=== PATIENT | male | born 1960 | race Caucasian/White ===

== ENCOUNTER 2016-04-29 11:08 | Emergency (ER) | payer MEDICAID ==
[2016-04-29] MEDS ORDERED: Sodium Chloride 0.9% 10 ML Syringe FLUSH PRN (11:50)
[2016-04-29] MEDS ORDERED: Sodium Chloride 0.9% 1,000 ML IV SCH (12:00)
[2016-04-29 12:07] VITALS: BP 137/85
[2016-04-29] MEDS ORDERED: HYDROmorphone 1 MG/ML Syringe IVPUSH ONE (12:40)
--- NOTE | 2016-04-29 13:34 | EDM.PDOC ---
ED HPI Trauma - General Chief Complaint: Lower Extremity Injury/Pain Stated Complaint: PAIN IN BOTH LEGS Time Seen by Provider: 04/29/16 11:43 Source: Reports: Patient History Limitations: Reports: No limitations - History of Present Illness INITIAL COMMENTS - FREE TEXT/NARRATIVE: The patient presents with bilateral leg pain and low back pain. He also says he has some weakness in his legs. 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 He denies fever, chills, cough, congestion, runny nose , chest pain, shortness of breath, abdominal pain, nausea or vomiting. Occurred When: just prior to arrival Occurred Where: home Method of Injury: other (He was trying to get out of bed) Severity: moderate Pain/Injury Location: Reports: lower extremity, right, lower extremity, left Consciousness: Reports: no loss of consciousness Allergies/ADRs: Allergies No Known Allergies Allergy (Verified 04/29/16 11:40) Home Medications: Ambulatory Orders Atenolol 25 mg PO DAILY 04/29/16 [Confirmed 04/29/16] ClonazePAM [KlonoPIN] 2 mg PO TID 04/29/16 [Confirmed 04/29/16] Difonlec 75 mg PO BID 04/29/16 [Confirmed 04/29/16] Gabepentin 300 mg PO TID 04/29/16 [Confirmed 04/29/16] Methylphenidate [Ritalin] 20 mg PO TID 04/29/16 [Confirmed 04/29/16] Sertraline [Zoloft] 120 mg PO DAILY 04/29/16 [Confirmed 04/29/16] buPROPion [Wellbutrin XL] 300 mg PO DAILY 04/29/16 [Confirmed 04/29/16] oxyCODONE HCl/Acetaminophen [Percocet 5-325 mg Tablet] 1 - 2 each PO Q6HR PRN # 20 tablet 04/29/16 Past Medical History HEENT History: Reports: Impaired vision Cardiovascular History: Reports: High cholesterol, Hypertension Respiratory History: Reports: Bronchitis, recurrent Gastrointestinal History: Reports: Gastritis Musculoskeletal History: Reports: Back pain, chronic, Osteoarthritis Psychiatric History: Reports: Anxiety, Depression, Emotional problems, Mood swings, PTSD Social & Family History - Tobacco Use Smoking Status *Q: Current Every Day Smoker Years of Tobacco use: 21 Packs/Tins Daily: 1 - Caffeine Use Caffeine Use: Reports: Coffee, Energy drinks, Soda, Tea - Recreational Drug Use Drug Use in Last 12 Months: Yes Recreational Drug Type: Reports: Marijuana/Hashish, Methamphetamine Review of Systems - Review of Systems Review Of Systems: See Below Constitutional: Reports: no symptoms Eyes: Reports: no symptoms Ears: Reports: no symptoms Nose: Reports: no symptoms Mouth/Throat: Reports: no symptoms Respiratory: Reports: No Symptoms Cardiovascular: Reports: no symptoms GI/Abdominal: Reports: No symptoms Genitourinary: Reports: no symptoms Musculoskeletal: Reports: other (Bilateral leg pain and weakness) Trauma Exam - Physical Exam Exam: See Below Exam Limited By: No limitations General Appearance: Reports: alert, no apparent distress Head: Reports: atraumatic, normocephalic Ears: Reports: normal external exam Nose: Reports: normal inspection Neck: Reports: non-tender, normal alignment, normal inspection Respiratory Exam: Reports: no respiratory distress, lungs clear, normal breath sounds Cardiovascular: Reports: normal peripheral pulses, regular rate, rhythm, no edema GI/Abdominal: Reports: soft, non tender, no organomegaly Back: Reports: other (Mild pain upon palpation to the lumbar spine) Extremities: Reports: no evidence of injury, other (Tenderness to the bilateral thighs. Good sensation and pulses distally.) Neurologic: Reports: no motor/sensory deficits, alert, normal mood/affect, oriented x 3 Course - Vital Signs Last Recorded V/S: Last Vital Signs Temp 97.2 F 04/29/16 12:06 Pulse 76 04/29/16 12:06 Resp 20 04/29/16 12:06 BP 137/85 04/29/16 12:06 Pulse Ox 88 L 04/29/16 12:06 - Orders/Labs/Meds Orders: Active Orders 24 hr Category Date Time Status Peripheral IV Care [RC] . DIRECTED Care 04/29/16 11:51 Active Lumbar Spine 2 or 3V [CR] Stat Exams 04/29/16 11:52 Taken AYAZ W/RFX TESTING [REF] Stat Lab 04/29/16 12:00 Received Sodium Chloride 0.9% [Normal Saline] 1,000 ml Med 04/29/16 12:00 Active IV ASDIRECTED Sodium Chloride 0.9% [Saline Flush] Med 04/29/16 11:50 Active 10 ml FLUSH ASDIRECTED PRN Peripheral IV Insertion Adult [OM.PC] Stat Oth 04/29/16 11:50 Ordered Medication Orders Sodium Chloride (Normal Saline) 1,000 mls @ 125 mls/hr IV ASDIRECTED LEONARDA Last Admin: 04/29/16 12:36 Dose: 125 mls/hr Sodium Chloride (Saline Flush) 10 ml FLUSH ASDIRECTED PRN PRN Reason: Keep Vein Open Last Admin: 04/29/16 12:36 Dose: 10 ml Labs: Laboratory Tests 04/29/16 04/29/16 04/29/16 Range/Units 12:00 12:00 12:00 WBC 10.82 H (4.23-9.07) K/mm3 RBC 4.21 L (4.63-6.08) M/mm3 Hgb 14.4 (13.7-17.5) gm/L Hct 41.7 (40.1-51.0) % MCV 99.0 H (79.0-92.2) fl MCH 34.2 H (25.7-32.2) pg MCHC 34.5 (32.2-35.5) g/dl RDW Std Deviation 44.7 H (35.1-43.9) fL Plt Count 242 (163-337) K/mm3 MPV 9.1 L (9.4-12.3) fl Neut % (Auto) 63.3 (34.0-67.9) % Lymph % (Auto) 20.7 L (21.8-53.1) % Cooke % (Auto) 12.0 (5.3-12.2) % Eos % (Auto) 2.4 (0.8-7.0) Baso % (Auto) 0.4 (0.1-1.2) % Neut # 6.85 H (1.78-5.38) K/mm3 Lymph # 2.24 (1.32-3.57) K/mm3 Cooke # 1.30 H (0.30-0.82) K/mm3 Eos # 0.26 (0.04-0.54) K/mm3 Baso # 0.04 (0.01-0.08) K/mm3 Manual Slide Review Normal smear ESR 20 H (0-15) mm/hr Sodium 134 L (136-145) mEq/L Potassium 4.4 (3.5-5.1) mEq/L Chloride 100 (98-107) mEq/L Carbon Dioxide 22 (21-32) mEq/L Anion Gap 16.4 H (5-15) BUN 21 H (7-18) mg/dL Creatinine 1.1 (0.7-1.3) mg/dL Est Cr Clr Drug Dosing 81.77 mL/min Estimated GFR (MDRD) > 60 (>60) mL/min BUN/Creatinine Ratio 19.1 H (14-18) Glucose 112 H (74-106) mg/dL Calcium 8.4 L (8.5-10.1) mg/dL Total Bilirubin 0.6 (0.2-1.0) mg/dL AST 31 (15-37) U/L ALT 38 (16-63) U/L Alkaline Phosphatase 74 (46-116) U/L C-Reactive Protein < 0.2 (<1.0) mg/dL Total Protein 7.3 (6.4-8.2) g/dl Albumin 3.7 (3.4-5.0) g/dl Globulin 3.6 gm/dL Albumin/Globulin Ratio 1.0 (1-2) Rheumatoid Factor Scrn (NEGATIVE) 04/29/16 Range/Units 12:00 WBC (4.23-9.07) K/mm3 RBC (4.63-6.08) M/mm3 Hgb (13.7-17.5) gm/L Hct (40.1-51.0) % MCV (79.0-92.2) fl MCH (25.7-32.2) pg MCHC (32.2-35.5) g/dl RDW Std Deviation (35.1-43.9) fL Plt Count (163-337) K/mm3 MPV (9.4-12.3) fl Neut % (Auto) (34.0-67.9) % Lymph % (Auto) (21.8-53.1) % Cooke % (Auto) (5.3-12.2) % Eos % (Auto) (0.8-7.0) Baso % (Auto) (0.1-1.2) % Neut # (1.78-5.38) K/mm3 Lymph # (1.32-3.57) K/mm3 Cooke # (0.30-0.82) K/mm3 Eos # (0.04-0.54) K/mm3 Baso # (0.01-0.08) K/mm3 Manual Slide Review ESR (0-15) mm/hr Sodium (136-145) mEq/L Potassium (3.5-5.1) mEq/L Chloride (98-107) mEq/L Carbon Dioxide (21-32) mEq/L Anion Gap (5-15) BUN (7-18) mg/dL Creatinine (0.7-1.3) mg/dL Est Cr Clr Drug Dosing mL/min Estimated GFR (MDRD) (>60) mL/min BUN/Creatinine Ratio (14-18) Glucose (74-106) mg/dL Calcium (8.5-10.1) mg/dL Total Bilirubin (0.2-1.0) mg/dL AST (15-37) U/L ALT (16-63) U/L Alkaline Phosphatase (46-116) U/L C-Reactive Protein (<1.0) mg/dL Total Protein (6.4-8.2) g/dl Albumin (3.4-5.0) g/dl Globulin gm/dL Albumin/Globulin Ratio (1-2) Rheumatoid Factor Scrn Negative (NEGATIVE) Meds: Medications Generic Name Dose Route Start Last Admin Trade Name Freq PRN Reason Stop Dose Admin Sodium Chloride 1,000 mls @ 125 mls/hr 04/29/16 12:00 04/29/16 12:36 Normal Saline IV 125 mls/hr ASDIRECTED LEONARDA Administration Sodium Chloride 10 ml 04/29/16 11:50 04/29/16 12:36 Saline Flush FLUSH 10 ml ASDIRECTED PRN Administration Keep Vein Open Discontinued Medications Generic Name Dose Route Start Last Admin Trade Name Freq PRN Reason Stop Dose Admin Hydromorphone HCl 1 mg 04/29/16 12:40 04/29/16 13:25 Dilaudid IVPUSH 04/29/16 12:41 1 mg ONETIME ONE Administration - Re-Assessments/Exams Free Text/Narrative Re-Assessment/Exam: 04/29/16 14:38 I ordered an IV NS at 125mL/hr, lumbar spine x-ray and labs. 04/29/16 14:40 His x-ray shows some degenerative changes. His WBC was slightly elevated at 10.82. His Na was low at 134. His anion gap was elevated at 16.4. His CRP is negative. His rheumatoid factor is negative. His sed rate is slightly elevated at 20. He feels better after the dilaudid. He has an appointment with a neurologist on the 25 of May. I will give him something for pain. Departure - Departure Time of Disposition: 14:45 Disposition: Home, Self-Care 01 Condition: good Clinical Impression: Bilateral leg pain Prescriptions: oxyCODONE HCl/Acetaminophen [Percocet 5-325 mg Tablet] 1 - 2 each PO Q6HR PRN # 20 tablet PRN Reason: Pain Referrals: Denita Dykes DO [Primary Care Provider] - 1 Week Forms: ED Department Discharge Additional Instructions: Take the percocet as needed for pain. [facility] Please return if you are worse. - My Orders Last 24 Hours: My Active Orders 04/29/16 11:50 Sodium Chloride 0.9% [Saline Flush] 10 ml FLUSH ASDIRECTED PRN Peripheral IV Insertion Adult [OM.PC] Stat 04/29/16 11:51 Peripheral IV Care [RC] . DIRECTED 04/29/16 11:52 Lumbar Spine 2 or 3V [CR] Stat 04/29/16 12:00 AYAZ W/RFX TESTING [REF] Stat Sodium Chloride 0.9% [Normal Saline] 1,000 ml IV ASDIRECTED - Assessment/Plan Last 24 Hours: My Active Orders 04/29/16 11:50 Sodium Chloride 0.9% [Saline Flush] 10 ml FLUSH ASDIRECTED PRN Peripheral IV Insertion Adult [OM.PC] Stat 04/29/16 11:51 Peripheral IV Care [RC] . DIRECTED 04/29/16 11:52 Lumbar Spine 2 or 3V [CR] Stat 04/29/16 12:00 AYAZ W/RFX TESTING [REF] Stat Sodium Chloride 0.9% [Normal Saline] 1,000 ml IV ASDIRECTED
--- NOTE | 2016-04-30 08:02 | CR ---
Lumbar spine: AP, lateral and coned down lateral views centered to the lumbosacral junction were obtained. Comparison: No previous lumbar spine imaging. Mild posterior disc space narrowing noted at T12-L1 and L1-L2 as well as L2-L3. Minimal spondylolisthesis at L4-L5 compatible with degenerative apophyseal change is seen. Scattered endplate osteophytes are seen. Mild scoliosis is noted. Pedicles as well as transverse and spinous processes are intact. Impression: 1. Mild degenerative change as noted above. Diagnostic code #2
== END 2016-04-29 15:01 | disposition home or self-care (01) ==
LOC: JD.ED 11:08
DX: M79.604 Pain in right leg (principal); M79.605 Pain in left leg; E78.00 Pure hypercholesterolemia, unspecified; I10 Essential (primary) hypertension; M19.90 Unspecified osteoarthritis, unspecified site; F41.9 Anxiety disorder, unspecified; F32.9 Major depressive disorder, single episode, unspecified; F17.210 Nicotine dependence, cigarettes, uncomplicated
CPT/HCPCS: 36415; 72100; 80053; 85025; 85652; 86038; 86140; 86430; 96361; 96374; 99284; J1170; J7040; J7050

== ENCOUNTER 2019-09-18 11:28 | Emergency (ER) | payer MEDICAID, OTHER ==
[2019-09-18 11:46] VITALS: BP 100/87; PULSE 98
[2019-09-18] MEDS ORDERED: Sodium Chloride 0.9% 10 ML Syringe FLUSH PRN (12:03)
--- NOTE | 2019-09-18 12:12 | EDM.PDOC ---
ED HPI GENERAL MEDICAL PROBLEM - General Chief Complaint: Cardiovascular Problem Stated Complaint: SWOLLEN ARMS AND LEGS Time Seen by Provider: 09/18/19 11:49 Source of Information: Reports: Patient, RN Notes Reviewed History Limitations: Reports: No Limitations - History of Present Illness INITIAL COMMENTS - FREE TEXT/NARRATIVE: Patient is a 59-year-old male who presents to the ED for the evaluation of his bilateral swollen arms and legs. Patient states that he is a daily drinker, he drinks roughly 12-18 beers daily, and 1/5 of fireball daily. Patient notes his last drink was 5 minutes before he got to the ER. He has become increasingly concerned with his peripheral arm and leg swelling, notes that is been pretty bad for the last month. He is also appreciating some increased shortness of breath, but he does have COPD. He states that he feels bloated in his stool, but he denies any sort of abdomen pain, fever/chills, nausea/vomiting/diarrhea or any other sick-like symptoms. Patient notes that he has been drinking alcohol for 40+ years, and has been through multiple treatment programs, and he has had periods of sobriety that have lasted 4-1/2 years at times. He is a , and does seek [facility] care through [facility] [place], his care physician would be Carmel Villanueva, and sees a Dr. Colon through my not for his mental health. Patient notes that he is also a [id number] cigarette smoker, he smokes marijuana occasionally and sporadically, and states that he also snorts meth from time to time and equates his use to about 1-2 times per month. - Related Data Allergies Allergy/AdvReac Type Severity Reaction Status Date / Time lisinopril Allergy Severe Chest Verified 09/18/19 11:47 Presssure Home Meds: Home Meds DULoxetine [Cymbalta] 120 mg PO DAILY 09/05/18 [History] Dextroamphetamine/Amphetamine [Adderall] 30 mg PO TID 09/05/18 [History] Gabapentin [Neurontin] 300 mg PO TID 09/05/18 [History] Naltrexone 50 mg PO DAILY 09/05/18 [History] Folic Acid 1 mg PO DAILY 30 Days #30 tablet 09/06/18 [Rx] Thiamine [Vitamin B-1] 100 mg PO BEDTIME 30 Days #30 tablet 09/06/18 [Rx] amLODIPine [Norvasc] 5 mg PO DAILY 30 Days #30 tablet 09/06/18 [Rx] atenoloL [Tenormin] 25 mg PO DAILY tablet 09/06/18 [Rx] buPROPion [Wellbutrin SR] 100 mg PO 0600,1200,1700 tab.sr 09/06/18 [Rx] Furosemide [Lasix] 20 mg PO DAILY PRN #14 tab 09/18/19 [Rx] Potassium Chloride 20 meq PO DAILY #14 tablet.er 09/18/19 [Rx] Past Medical History HEENT History: Reports: Impaired Vision Other HEENT History: Wears glasses Cardiovascular History: Reports: High Cholesterol, Hypertension Respiratory History: Reports: Bronchitis, Recurrent, COPD Gastrointestinal History: Reports: Gastritis Musculoskeletal History: Reports: Back Pain, Chronic, Osteoarthritis Psychiatric History: Reports: Addiction, Anxiety, Depression, Emotional Problems, Mood Swings, PTSD - Infectious Disease History Infectious Disease History: Reports: Chicken Pox - Past Surgical History Musculoskeletal Surgical History: Reports: Other (See Below) Other Musculoskeletal Surgeries/Procedures:: Partial amputaion to R pointer finger Social & Family History - Family History Family Medical History: Noncontributory - Tobacco Use Smoking Status *Q: Current Every Day Smoker Tobacco Use Within Last Twelve Months: Cigarettes Years of Tobacco use: 44 Packs/Tins Daily: 1 - Caffeine Use Caffeine Use: Reports: Coffee, Soda - Alcohol Use Alcohol Use History: Yes Days Per Week of Alcohol Use: 7 Number of Drinks Per Day Comment: 12-18 beers daily along with 1 fifth of fireball whiskey. Alcohol Use in Last Twelve Months: Yes Alcohol Use Frequency: Daily - Recreational Drug Use Recreational Drug Use: Yes Drug Use in Last 12 Months: Yes Recreational Drug Type: Reports: Marijuana/Hashish (uses sporadically; 1 puff per day, but sometimes goes weeks without use), Methamphetamine (snorts meth 1-2 per month) Recreational Drug Route: Reports: Inhaled ED ROS GENERAL - Review of Systems Review Of Systems: Comprehensive ROS is negative, except as noted in HPI. ED EXAM, GENERAL - Physical Exam Exam: See Below Exam Limited By: No Limitations General Appearance: Alert, WD/WN, No Apparent Distress Eye Exam: Bilateral Eye: EOMI, Normal Inspection, PERRL Throat/Mouth: Normal Inspection, Normal Lips, Normal Teeth, Normal Gums, Normal Oropharynx, Normal Voice, No Airway Compromise Head: Atraumatic, Normocephalic Neck: Normal Inspection Respiratory/Chest: No Respiratory Distress, Lungs Clear, Normal Breath Sounds, No Accessory Muscle Use, Chest Non-Tender Cardiovascular: Normal Peripheral Pulses, Regular Rate, Rhythm, No Murmur Peripheral Pulses: 2+: Radial (L), Radial (R), Dorsalis Pedis (L), Dorsalis Pedis (R) GI/Abdominal: Normal Bowel Sounds, Soft, Non-Tender, Distended (slight generalized distension, non-tender; no fluid shift) Extremities: Normal Inspection, Normal Range of Motion, Normal Capillary Refill, Pedal Edema (1+ edema to bilateral lower extremities) Neurological: Alert, Oriented, Normal Cognition, No Motor/Sensory Deficits Psychiatric: Normal Affect, Normal Mood Skin Exam: Warm, Dry, Intact, Normal Color, No Rash Course - Vital Signs Last Recorded V/S: Last Vital Signs Temp 98.6 F 09/18/19 11:41 Pulse 98 09/18/19 11:41 Resp 20 09/18/19 11:41 BP 100/87 09/18/19 11:41 Pulse Ox 95 09/18/19 11:41 - Orders/Labs/Meds Orders: Active Orders 24 hr Category Date Time Status Peripheral IV Care [RC] . DIRECTED Care 09/18/19 12:04 Active DRUG SCREEN, URINE [URCHEM] Stat Lab 09/18/19 12:03 Ordered Sodium Chloride 0.9% [Normal Saline] 1,000 ml Med 09/18/19 12:29 Ordered IV ONETIME Sodium Chloride 0.9% [Saline Flush] Med 09/18/19 12:03 Active 10 ml FLUSH ASDIRECTED PRN Peripheral IV Insertion Adult [OM.PC] Routine Oth 09/18/19 12:03 Ordered Medication Orders Sodium Chloride (Normal Saline) 1,000 mls @ 250 mls/hr IV ONETIME ONE Stop: 09/18/19 16:28 Last Admin: 09/18/19 13:35 Dose: 250 mls/hr Documented by: CONNIE Sodium Chloride (Saline Flush) 10 ml FLUSH ASDIRECTED PRN PRN Reason: Keep Vein Open Last Admin: 09/18/19 13:35 Dose: 10 ml Documented by: CONNIE Labs: Laboratory Tests 09/18/19 09/18/19 09/18/19 Range/Units 12:30 12:30 12:30 WBC 6.71 (4.23-9.07) K/mm3 RBC 4.24 L (4.63-6.08) M/mm3 Hgb 14.6 (13.7-17.5) gm/dl Hct 43.6 (40.1-51.0) % MCV 102.8 H (79.0-92.2) fl MCH 34.4 H (25.7-32.2) pg MCHC 33.5 (32.2-35.5) g/dl RDW Std Deviation 48.7 H (35.1-43.9) fL Plt Count 220 (163-337) K/mm3 MPV 9.0 L (9.4-12.3) fl Neut % (Auto) 25.6 L (34.0-67.9) % Lymph % (Auto) 42.0 (21.8-53.1) % Stewart % (Auto) 21.8 H (5.3-12.2) % Eos % (Auto) 8.3 H (0.8-7.0) Baso % (Auto) 1.6 H (0.1-1.2) % Neut # (Auto) 1.71 L (1.78-5.38) K/mm3 Lymph # (Auto) 2.82 (1.32-3.57) K/mm3 Stewart # (Auto) 1.46 H (0.30-0.82) K/mm3 Eos # (Auto) 0.56 H (0.04-0.54) K/mm3 Baso # (Auto) 0.11 H (0.01-0.08) K/mm3 Manual Slide Review Abnormal smear PT 10.9 (9.7-12.0) SECONDS INR 1.02 APTT 27 (22-31) SECONDS Sodium 135 L (136-145) mEq/L Potassium 3.2 L (3.5-5.1) mEq/L Chloride 99 (98-107) mEq/L Carbon Dioxide 18 L (21-32) mEq/L Anion Gap 21.2 H (5-15) BUN 3 L (7-18) mg/dL Creatinine 0.8 (0.7-1.3) mg/dL Est Cr Clr Drug Dosing 98.56 mL/min Estimated GFR (MDRD) > 60 (>60) mL/min BUN/Creatinine Ratio 3.8 L (14-18) Glucose 170 H (74-106) mg/dL Calcium 7.7 L (8.5-10.1) mg/dL Magnesium 2.0 (1.8-2.4) mg/dl Total Bilirubin 0.2 (0.2-1.0) mg/dL AST 103 H (15-37) U/L ALT 72 H (16-63) U/L Alkaline Phosphatase 85 (46-116) U/L NT-Pro-B Natriuret Pep (0-125) pg/mL Total Protein 6.9 (6.4-8.2) g/dl Albumin 2.8 L (3.4-5.0) g/dl Globulin 4.1 gm/dL Albumin/Globulin Ratio 0.7 L (1-2) Ethyl Alcohol 0.19 (0.00) gm% 09/17/ Range/Units 12:30 WBC (4.23-9.07) K/mm3 RBC (4.63-6.08) M/mm3 Hgb (13.7-17.5) gm/dl Hct (40.1-51.0) % MCV (79.0-92.2) fl MCH (25.7-32.2) pg MCHC (32.2-35.5) g/dl RDW Std Deviation (35.1-43.9) fL Plt Count (163-337) K/mm3 MPV (9.4-12.3) fl Neut % (Auto) (34.0-67.9) % Lymph % (Auto) (21.8-53.1) % Stewart % (Auto) (5.3-12.2) % Eos % (Auto) (0.8-7.0) Baso % (Auto) (0.1-1.2) % Neut # (Auto) (1.78-5.38) K/mm3 Lymph # (Auto) (1.32-3.57) K/mm3 Stewart # (Auto) (0.30-0.82) K/mm3 Eos # (Auto) (0.04-0.54) K/mm3 Baso # (Auto) (0.01-0.08) K/mm3 Manual Slide Review PT (9.7-12.0) SECONDS INR APTT (22-31) SECONDS Sodium (136-145) mEq/L Potassium (3.5-5.1) mEq/L Chloride (98-107) mEq/L Carbon Dioxide (21-32) mEq/L Anion Gap (5-15) BUN (7-18) mg/dL Creatinine (0.7-1.3) mg/dL Est Cr Clr Drug Dosing mL/min Estimated GFR (MDRD) (>60) mL/min BUN/Creatinine Ratio (14-18) Glucose (74-106) mg/dL Calcium (8.5-10.1) mg/dL Magnesium (1.8-2.4) mg/dl Total Bilirubin (0.2-1.0) mg/dL AST (15-37) U/L ALT (16-63) U/L Alkaline Phosphatase (46-116) U/L NT-Pro-B Natriuret Pep 47 (0-125) pg/mL Total Protein (6.4-8.2) g/dl Albumin (3.4-5.0) g/dl Globulin gm/dL Albumin/Globulin Ratio (1-2) Ethyl Alcohol (0.00) gm% Meds: Medications Generic Name Dose Route Start Last Admin Trade Name Freq PRN Reason Stop Dose Admin Sodium Chloride 1,000 mls @ 250 mls/hr 09/18/19 12:29 09/18/19 13:35 Normal Saline IV 09/18/19 16:28 250 mls/hr ONETIME ONE Administration Sodium Chloride 10 ml 09/18/19 12:03 09/18/19 13:35 Saline Flush FLUSH 10 ml ASDIRECTED PRN Administration Keep Vein Open - Re-Assessments/Exams Free Text/Narrative Re-Assessment/Exam: 09/18/19 12:15 Patient presents to the ED for his bilateral arm and leg swelling. Unsure as to what he is actually trying to accomplish with this visit. He states multiple times when he wants a "medical detox". But then is worried about the swelling in his arms and legs. Nonetheless have ordered some labs along with a chest x- ray for initial evaluation. I did discuss with him, if he would like to do a medical detox, he would likely be best served at the [facility], as he is a . He seems a little adverse into this idea at this time. I do believe that he would get better services at [facility], rather than being admitted here for detox. He does state multiple times that he is tried treatment programs, and he does not want treatment, and states if he has to go to treatment, he will "walk". 09/18/19 13:53 Chest x-ray demonstrates no obvious infiltrates, or acute congestive pattern. BNP is within normal limits, patient's laboratory evaluation demonstrates a macrocytic anemia, which is common with chronic alcoholism. Sodium is mildly low at 135, potassium is mildly low at 3.2, anion gap is elevated at 21.2. Crea tinine and GFR okay, magnesium is okay at 2.0, blood alcohol level 0.21 at this time. He is suffering from acute alcohol intoxication, but does not seem to have any other urgent medical needs at this time. We will start him on 20 mg Lasix as needed for water retention, also 20 mEq potassium on a daily basis, and have him follow-up with his provider at the [facility], patient is understanding of this agreement, and agrees to call on Saturday for to get an appointment. Patient will try to cut back on his alcohol use at home. Departure - Departure Time of Disposition: 13:55 Disposition: Home, Self-Care 01 Condition: Good Clinical Impression: Peripheral edema, Alcohol abuse Prescriptions: Furosemide [Lasix] 20 mg PO DAILY PRN #14 tab PRN Reason: Edema Potassium Chloride 20 meq PO DAILY #14 tablet.er Instructions: Alcohol Abuse and Nutrition, Edema, [id number] Referrals: Shama Turcios PELT SALTER [Primary Care Provider] - Forms: ED Department Discharge Additional Instructions: You were evaluated in the ER today regarding your swelling of your arms and legs. Your chest x-ray and laboratory evaluation are essentially normal, you do have a little bit extra fluid on your legs, you have been started on Lasix, 1 tab daily as needed for increased water retention. You have also been started on potassium, please take 1 tab daily. Recommend you try to decrease your alcohol intake at home, and try to get yourself sober once again. I do believe this would be a great benefit to your health. If you should need help trying to quit alcohol, there are multiple resources available for you, [facility] is a good place to start, if you do not already have services through the [facility]. Please return to the ER if needed, or if your symptoms change or worsen. Sepsis Event Note (ED) - Evaluation Sepsis Screening Result: No Definite Risk - Focused Exam Vital Signs: Vital Signs Temp Pulse Resp BP Pulse Ox 09/18/19 11:41 98.6 F 98 20 100/87 95 - My Orders Last 24 Hours: My Active Orders 09/18/19 12:03 DRUG SCREEN, URINE [URCHEM] Stat Sodium Chloride 0.9% [Saline Flush] 10 ml FLUSH ASDIRECTED PRN Peripheral IV Insertion Adult [OM.PC] Routine 09/18/19 12:04 Peripheral IV Care [RC] . DIRECTED 09/18/19 12:29 Sodium Chloride 0.9% [Normal Saline] 1,000 ml IV ONETIME - Assessment/Plan Last 24 Hours: My Active Orders 09/18/19 12:03 DRUG SCREEN, URINE [URCHEM] Stat Sodium Chloride 0.9% [Saline Flush] 10 ml FLUSH ASDIRECTED PRN Peripheral IV Insertion Adult [OM.PC] Routine 09/18/19 12:04 Peripheral IV Care [RC] . DIRECTED 09/18/19 12:29 Sodium Chloride 0.9% [Normal Saline] 1,000 ml IV ONETIME
[2019-09-18] MEDS ORDERED: Sodium Chloride 0.9% 1,000 ML IV ONE (12:29)
--- NOTE | 2019-09-18 12:57 | CR ---
Chest: 2 views of the chest were obtained. Comparison: No prior chest imaging. Heart size and mediastinum are normal. Lungs are clear with no acute parenchymal change. Bony structures are unremarkable. Impression: 1. Nothing acute is seen on 2 view chest x-ray. Diagnostic code #1 This report was dictated in MDT
== END 2019-09-18 14:55 | disposition home or self-care (01) ==
LOC: JD.ED 11:28
DX: R60.0 Localized edema (principal); F10.10 Alcohol abuse, uncomplicated; I10 Essential (primary) hypertension; J44.9 Chronic obstructive pulmonary disease, unspecified; F41.9 Anxiety disorder, unspecified; F32.9 Major depressive disorder, single episode, unspecified; F17.210 Nicotine dependence, cigarettes, uncomplicated; Z88.8 Allergy status to other drugs, medicaments and biological substances; Z79.899 Other long term (current) drug therapy
CPT/HCPCS: 36415; 71046; 80053; 80307; 83735; 83880; 85025; 85610; 85730; 99285; J7030; 99283

== ENCOUNTER 2020-09-08 14:56 | Inpatient (IN) | payer OTHER, MEDICARE, MEDICAID ==
[2020-09-08] MEDS ORDERED: Folic Acid 1 MG Tab PO ONE (16:18)
[2020-09-08] MEDS ORDERED: Thiamine 100 MG Tab PO ONE (16:18)
[2020-09-08] MEDS ORDERED: Sodium Chloride 0.9% 10 ML Syringe FLUSH PRN (16:18)
[2020-09-08] MEDS ORDERED: Sodium Chloride 0.9% 1,000 ML IV ONE (16:18)
[2020-09-08] MEDS ORDERED: Ondansetron 4 MG/2 ML SDV IVPUSH ONE (16:19)
--- NOTE | 2020-09-08 16:31 | EDM.PDOCBH ---
ED HPI GENERAL MEDICAL PROBLEM - General Chief Complaint: Drug or Alcohol Abuse Stated Complaint: DETOX Time Seen by Provider: 09/08/20 16:05 Source of Information: Reports: Patient, RN Notes Reviewed History Limitations: Reports: No Limitations - History of Present Illness INITIAL COMMENTS - FREE TEXT/NARRATIVE: Patient is a 60-year-old male who presents to the ER for the evaluation of his alcoholism. Patient notes that he has been drinking at least 20 beers daily, since he has been around 18 years old. Notes that he has had a few periods of sobriety, but the last one was many many years ago. He notes that his fiance 2 days ago, and he is concerned now that his alcoholism might be killing him. He requests to be admitted for medical detox, he did go to [facility], the [facility] for alcohol management but they sent him here for medical detox. He would like to return to the [facility] for ongoing management after he is medically detox. His last drink was at around noon today, and staff at [facility] stated that his blood alcohol was 0.185 when they took it. He also states he had some vodka today. He denies any history of alcohol withdrawal seizures, but he states he does get fairly shaky, nauseous, and has other withdrawal symptoms. Patient denies any other sick-like symptoms, fever/chills, cough/shortness of breath. Patient states he is nauseous but has had no vomiting or diarrhea. Patient is a disabled , and does attend the [place] [facility] from time to time as well. Generalized Pain Score (Numeric/FACES): 6 - Related Data Allergies Allergy/AdvReac Type Severity Reaction Status Date / Time lisinopril Allergy Severe Chest Verified 09/18/19 11:47 Presssure Home Meds: Home Meds DULoxetine [Cymbalta] 120 mg PO DAILY 09/05/18 [History] Dextroamphetamine/Amphetamine [Adderall] 30 mg PO TID 09/05/18 [History] Gabapentin [Neurontin] 300 mg PO TID 09/05/18 [History] Naltrexone 50 mg PO DAILY 09/05/18 [History] Folic Acid 1 mg PO DAILY 30 Days #30 tablet 09/06/18 [Rx] Thiamine [Vitamin B-1] 100 mg PO BEDTIME 30 Days #30 tablet 09/06/18 [Rx] amLODIPine [Norvasc] 5 mg PO DAILY 30 Days #30 tablet 09/06/18 [Rx] atenoloL [Tenormin] 25 mg PO DAILY tablet 09/06/18 [Rx] buPROPion [Wellbutrin SR] 100 mg PO 0600,1200,1700 tab.sr 09/06/18 [Rx] Furosemide [Lasix] 20 mg PO DAILY PRN #14 tab 09/18/19 [Rx] Potassium Chloride 20 meq PO DAILY #14 tablet.er 09/18/19 [Rx] Past Medical History HEENT History: Reports: Impaired Vision Other HEENT History: Wears glasses Cardiovascular History: Reports: High Cholesterol, Hypertension Respiratory History: Reports: Bronchitis, Recurrent, COPD, Pneumonia, Recurrent Gastrointestinal History: Reports: Gastritis Musculoskeletal History: Reports: Back Pain, Chronic, Osteoarthritis Psychiatric History: Reports: Addiction, Anxiety, Depression, Emotional Problems, Mood Swings, PTSD - Infectious Disease History Infectious Disease History: Reports: Chicken Pox - Past Surgical History Musculoskeletal Surgical History: Reports: Other (See Below) Other Musculoskeletal Surgeries/Procedures:: Partial amputaion to R pointer finger Social & Family History - Family History Family Medical History: No Pertinent Family History - Tobacco Use Tobacco Use Status *Q: Current Every Day Tobacco User Years of Tobacco use: 13 Packs/Tins Daily: 1 - Caffeine Use Caffeine Use: Reports: None - Alcohol Use Alcohol Use History: Yes Days Per Week of Alcohol Use: 7 Days Per Week of Alcohol Use Comment: 20 beers daily Alcohol Use in Last Twelve Months: Yes Alcohol Use Frequency: Daily - Recreational Drug Use Recreational Drug Use: Yes Recreational Drug Type: Reports: Marijuana/Hashish, Methamphetamine ED ROS GENERAL - Review of Systems Review Of Systems: Comprehensive ROS is negative, except as noted in HPI. ED EXAM, BEHAVIORAL HEALTH - Physical Exam Exam: See Below Exam Limited By: No Limitations General Appearance: Alert, WD/WN, No Apparent Distress Eye Exam: Bilateral Eye: EOMI Respiratory/Chest: No Respiratory Distress, Lungs Clear, Normal Breath Sounds, No Accessory Muscle Use, Chest Non-Tender Cardiovascular: Normal Peripheral Pulses, Regular Rate, Rhythm, No Edema GI/Abdominal: Normal Bowel Sounds, Soft, Non-Tender, No Mass, Distended (generalized, but not tender- states this is not more distended than normal.) Extremities: Normal Inspection, Normal Capillary Refill Neurological: Alert, Normal Mood/Affect, Normal Cognition, No Motor/Sensory Deficits, Oriented x 3 Psychiatric: Alert, Normal Affect, Normal Cognition, Normal Mood, Oriented. No: Suicidal Plan, Suicidal Thoughts, Tangential Thoughts, Auditory Hallucinations, Visual Hallucinations, Paranoid Thoughts Skin Exam: Warm, Dry, Intact, Normal color, No rash COURSE, BEHAVIORAL HEALTH COMP - Course Vital Signs: Last Vital Signs Temp 97.2 F 09/08/20 15:37 Pulse 115 H 09/08/20 15:37 Resp 20 09/08/20 15:37 BP 148/94 H 09/08/20 15:37 Pulse Ox 96 09/08/20 15:37 Orders, Labs, Meds: Active Orders 24 hr Category Date Time Status Peripheral IV Care [RC] . DIRECTED Care 09/08/20 16:19 Ordered Sodium Chloride 0.9% [Normal Saline] 1,000 ml Med 09/08/20 16:18 Ordered IV ONETIME Sodium Chloride 0.9% [Saline Flush] Med 09/08/20 16:18 Ordered 10 ml FLUSH ASDIRECTED PRN Peripheral IV Insertion Adult [OM.PC] Stat Oth 09/08/20 16:19 Ordered Medication Orders Sodium Chloride (Normal Saline) 1,000 mls @ 500 mls/hr IV ONETIME ONE Stop: 09/08/20 18:17 Last Admin: 09/08/20 16:41 Dose: 500 mls/hr Documented by: DAVID Sodium Chloride (Sodium Chloride 0.9% 10 Ml Syringe) 10 ml FLUSH ASDIRECTED PRN PRN Reason: Keep Vein Open Last Admin: 09/08/20 16:42 Dose: 10 ml Documented by: DAVID Laboratory Tests 09/08/20 09/08/20 09/08/20 Range/Units 10:34 15:48 15:48 WBC 8.64 (4.23-9.07) K/mm3 RBC 3.95 L (4.63-6.08) M/mm3 Hgb 14.6 (13.7-17.5) gm/dl Hct 42.1 (40.1-51.0) % MCV 106.6 H D (79.0-92.2) fl MCH 37.0 H (25.7-32.2) pg MCHC 34.7 (32.2-35.5) g/dl RDW Std Deviation 57.2 H (35.1-43.9) fL Plt Count 134 L D (163-337) K/mm3 MPV 9.9 (9.4-12.3) fl Neut % (Auto) 68.0 H (34.0-67.9) % Lymph % (Auto) 16.4 L (21.8-53.1) % [place] % (Auto) 13.9 H (5.3-12.2) % Eos % (Auto) 0.9 (0.8-7.0) Baso % (Auto) 0.5 (0.1-1.2) % Neut # (Auto) 5.87 H (1.78-5.38) K/mm3 Lymph # (Auto) 1.42 (1.32-3.57) K/mm3 [place] # (Auto) 1.20 H (0.30-0.82) K/mm3 Eos # (Auto) 0.08 (0.04-0.54) K/mm3 Baso # (Auto) 0.04 (0.01-0.08) K/mm3 Manual Slide Review Abnormal smear PT 12.4 H (9.7-12.0) SECONDS INR 1.16 Sodium (136-145) mEq/L Potassium (3.5-5.1) mEq/L Chloride (98-107) mEq/L Carbon Dioxide (21-32) mEq/L Anion Gap (5-15) BUN (7-18) mg/dL Creatinine (0.7-1.3) mg/dL Est Cr Clr Drug Dosing mL/min Estimated GFR (MDRD) (>60) mL/min BUN/Creatinine Ratio (14-18) Glucose (70-99) mg/dL Calcium (8.5-10.1) mg/dL Magnesium (1.8-2.4) mg/dL Total Bilirubin (0.2-1.0) mg/dL AST (15-37) U/L ALT (16-63) U/L Alkaline Phosphatase (46-116) U/L Total Protein (6.4-8.2) g/dl Albumin (3.4-5.0) g/dl Globulin gm/dL Albumin/Globulin Ratio (1-2) Ethyl Alcohol (0.00) gm% Influenza Type A RNA Negative (NEGATIVE) Influenza Type B RNA Negative (NEGATIVE) SARS-CoV-2 RNA (VANITA) Negative (NEGATIVE) 09/08/20 Range/Units 15:48 WBC (4.23-9.07) K/mm3 RBC (4.63-6.08) M/mm3 Hgb (13.7-17.5) gm/dl Hct (40.1-51.0) % MCV (79.0-92.2) fl MCH (25.7-32.2) pg MCHC (32.2-35.5) g/dl RDW Std Deviation (35.1-43.9) fL Plt Count (163-337) K/mm3 MPV (9.4-12.3) fl Neut % (Auto) (34.0-67.9) % Lymph % (Auto) (21.8-53.1) % [place] % (Auto) (5.3-12.2) % Eos % (Auto) (0.8-7.0) Baso % (Auto) (0.1-1.2) % Neut # (Auto) (1.78-5.38) K/mm3 Lymph # (Auto) (1.32-3.57) K/mm3 [place] # (Auto) (0.30-0.82) K/mm3 Eos # (Auto) (0.04-0.54) K/mm3 Baso # (Auto) (0.01-0.08) K/mm3 Manual Slide Review PT (9.7-12.0) SECONDS INR Sodium 137 (136-145) mEq/L Potassium 3.8 (3.5-5.1) mEq/L Chloride 100 (98-107) mEq/L Carbon Dioxide 23 (21-32) mEq/L Anion Gap 17.8 H (5-15) BUN 3 L (7-18) mg/dL Creatinine 0.7 (0.7-1.3) mg/dL Est Cr Clr Drug Dosing 115.03 mL/min Estimated GFR (MDRD) > 60 (>60) mL/min BUN/Creatinine Ratio 4.3 L (14-18) Glucose 127 H (70-99) mg/dL Calcium 8.3 L (8.5-10.1) mg/dL Magnesium 2.0 (1.8-2.4) mg/dL Total Bilirubin 1.7 H (0.2-1.0) mg/dL AST 291 H (15-37) U/L ALT 88 H (16-63) U/L Alkaline Phosphatase 239 H (46-116) U/L Total Protein 7.8 (6.4-8.2) g/dl Albumin 2.6 L (3.4-5.0) g/dl Globulin 5.2 gm/dL Albumin/Globulin Ratio 0.5 L (1-2) Ethyl Alcohol 0.22 (0.00) gm% Influenza Type A RNA (NEGATIVE) Influenza Type B RNA (NEGATIVE) SARS-CoV-2 RNA (VANITA) (NEGATIVE) Medications Generic Name Dose Route Start Last Admin Trade Name Freq PRN Reason Stop Dose Admin Sodium Chloride 1,000 mls @ 500 mls/hr 09/08/20 16:18 09/08/20 16:41 Normal Saline IV 09/08/20 18:17 500 mls/hr ONETIME ONE Administration Sodium Chloride 10 ml 09/08/20 16:18 09/08/20 16:42 Sodium Chloride 0.9% 10 Ml Syringe FLUSH 10 ml ASDIRECTED PRN Administration Keep Vein Open Discontinued Medications Generic Name Dose Route Start Last Admin Trade Name Freq PRN Reason Stop Dose Admin Folic Acid 1 mg 09/08/20 16:18 09/08/20 16:42 Folic Acid 1 Mg Tab PO 09/08/20 16:19 1 mg ONETIME ONE Administration Ondansetron HCl 4 mg 09/08/20 16:19 09/08/20 16:41 Ondansetron 4 Mg/2 Ml Sdv IVPUSH 09/08/20 16:20 4 mg ONETIME ONE Administration Thiamine HCl 100 mg 09/08/20 16:18 09/08/20 16:42 Thiamine 100 Mg Tab PO 09/08/20 16:19 100 mg ONETIME ONE Administration Discharge vs Psych Eval/Treatment:: 09/08/20 16:30 Patient presents to the ER for evaluation of his alcoholism, I do agree that he would more likely benefit from a medical detox versus detox at [facility]. We will go ahead get some basic labs, get some IV fluids going, and obtain a Covid swab for management. 09/08/20 17:12 Laboratory evaluation has resulted for the most part, CBC demonstrates a macrocytic anemia consistent with chronic alcoholism, metabolic panel demonstrates an anion gap slightly elevated at 17.8, and elevated liver enzymes along with a bilirubin, but the patient is a chronic everyday drinker, and did just finish drinking at around noon today. Blood alcohol level is 0.22. Covid screen is still pending. 09/08/20 18:06 Covid screen was negative. I did talk with Dr. Rodriguez for admission purposes, and he does cordially accept at this time for medical assisted detox from alcoholism. Departure - Departure Time of Disposition: 18:07 Disposition: Home, Self-Care 01 Condition: Good Clinical Impression: Alcohol abuse with intoxication - Discharge Information *PRESCRIPTION DRUG MONITORING PROGRAM REVIEWED*: No *COPY OF PRESCRIPTION DRUG MONITORING REPORT IN PATIENT INA: No Referrals: Carmel Villanueva MD [Primary Care Provider] - Forms: ED Department Discharge Sepsis Event Note (ED) - Evaluation Sepsis Screening Result: No Definite Risk - Focused Exam Vital Signs: Vital Signs Temp Pulse Resp BP Pulse Ox 09/08/20 15:37 97.2 F 115 H 20 148/94 H 96 - My Orders Last 24 Hours: My Active Orders 09/08/20 16:18 Sodium Chloride 0.9% [Normal Saline] 1,000 ml IV ONETIME Sodium Chloride 0.9% [Saline Flush] 10 ml FLUSH ASDIRECTED PRN 09/08/20 16:19 Peripheral IV Care [RC] . DIRECTED Peripheral IV Insertion Adult [OM.PC] Stat - Assessment/Plan Last 24 Hours: My Active Orders 09/08/20 16:18 Sodium Chloride 0.9% [Normal Saline] 1,000 ml IV ONETIME Sodium Chloride 0.9% [Saline Flush] 10 ml FLUSH ASDIRECTED PRN 09/08/20 16:19 Peripheral IV Care [RC] . DIRECTED Peripheral IV Insertion Adult [OM.PC] Stat
[2020-09-08 17:18] LABS: CORONAVIRUS COVID-19 NAA NEGATIVE (NEGATIVE)
[2020-09-08] MEDS ORDERED: Multivitamin Tab PO ONE (18:28)
[2020-09-08] MEDS: Heparin Sodium 5,000 Units/ML Vial SUBCUT SCH (18:33)
[2020-09-08] MEDS: Lactated Ringers 1,000 ML IV SCH (22:02)
[2020-09-08] MEDS: LORazepam 1 MG Tab PO SCH (22:02)
[2020-09-08] MEDS: Nicotine 21 MG/24 Hr Patch TRDERM SCH (22:02)
[2020-09-08] MEDS: Melatonin 3 MG Tab PO PRN (22:05)
[2020-09-09] MEDS: oxyCODONE 5 MG Tab PO PRN ×5 (02:15→21:08)
[2020-09-09] MEDS: LORazepam 1 MG Tab PO SCH ×4 (02:15→21:03)
[2020-09-09] MEDS: Heparin Sodium 5,000 Units/ML Vial SUBCUT SCH ×3 (02:15→17:45)
--- NOTE | 2020-09-09 07:26 | PCM.HP.2 ---
H&P History of Present Illness - General Date of Service: 09/08/29 Admit Problem/Dx: Admission Diagnosis/Problem Admission Diagnosis/Problem Alcohol abuse with intoxication with complication - History of Present Illness Initial Comments - Free Text/Narative: This is a 60M with PMhx noted below including hx of alcoholism presenting for alcohol intoxication. The patient's endorses depression but denies suicidal ideation. His fiance a few days ago after succumbing to a staph infection in the hospital. He has increased his daily drinking since then to help cope with grief. He has had vodka and 10+ beers over last 24 hours. He went to detox and was referred to ED. He endorses nausea and vomiting. He denies chest pain and sob. denies abdominal pain. He denies hx of alcohol withdrawal seizure. Generalized Pain Score (Numeric/FACES): 5 - Related Data Allergies/Adverse Reactions: Allergies Allergy/AdvReac Type Severity Reaction Status Date / Time lisinopril Allergy Severe Chest Verified 09/18/19 11:47 Presssure Home Medications: Home Meds DULoxetine [Cymbalta] 120 mg PO DAILY 09/05/18 [History] Dextroamphetamine/Amphetamine [Adderall] 30 mg PO TID 09/05/18 [History] Gabapentin [Neurontin] 300 mg PO TID 09/05/18 [History] Naltrexone 50 mg PO DAILY 09/05/18 [History] Folic Acid 1 mg PO DAILY 30 Days #30 tablet 09/06/18 [Rx] Thiamine [Vitamin B-1] 100 mg PO BEDTIME 30 Days #30 tablet 09/06/18 [Rx] amLODIPine [Norvasc] 5 mg PO DAILY 30 Days #30 tablet 09/06/18 [Rx] atenoloL [Tenormin] 25 mg PO DAILY tablet 09/06/18 [Rx] buPROPion [Wellbutrin SR] 100 mg PO 0600,1200,1700 tab.sr 09/06/18 [Rx] Furosemide [Lasix] 20 mg PO DAILY PRN #14 tab 09/18/19 [Rx] Potassium Chloride 20 meq PO DAILY #14 tablet.er 09/18/19 [Rx] Budesonide/Formoterol [Symbicort 160-4.5 MCG] 2 puff INH BID 09/09/20 [History] Ipratropium [Atrovent HFA Inh] 1 puff INH Q6H 09/09/20 [History] Tiotropium [place] [Spiriva Respimat] 2 puff INH ONETIME 09/09/20 [History] Past Medical History HEENT History: Reports: Impaired Vision Other HEENT History: Wears glasses Cardiovascular History: Reports: High Cholesterol, Hypertension Respiratory History: Reports: Bronchitis, Recurrent, COPD, Pneumonia, Recurrent Gastrointestinal History: Reports: Gastritis Musculoskeletal History: Reports: Back Pain, Chronic, Osteoarthritis Psychiatric History: Reports: Addiction, Anxiety, Depression, Emotional Problems, Mood Swings, PTSD - Infectious Disease History Infectious Disease History: Reports: Chicken Pox - Past Surgical History Musculoskeletal Surgical History: Reports: Other (See Below) Other Musculoskeletal Surgeries/Procedures:: Partial amputaion to R pointer finger Social & Family History - Family History Family Medical History: No Pertinent Family History - Tobacco Use Tobacco Use Status *Q: Heavy Tobacco User Years of Tobacco use: 45 Packs/Tins Daily: 2 - Caffeine Use Caffeine Use: Reports: None - Alcohol Use Days Per Week of Alcohol Use: 7 Number of Drinks Per Day: 20 Total Drinks Per Week: 140 Date of Last Drink: 09/08/20 Time of Last Drink: 12:00 - Recreational Drug Use Recreational Drug Use: Yes Drug Use in Last 12 Months: Yes Recreational Drug Type: Reports: Methamphetamine, Other (see below) Other Recreational Drug Type: snorted methamphetamine 2 days ago 09/06 Recreational Drug Use Frequency: Not Used In Over 5 Months H&P Review of Systems - Review of Systems: Review Of Systems: Comprehensive ROS is negative, except as noted in HPI. Exam - Exam Exam: See Below - Vital Signs Vital Signs: Last Vital Signs Temp 98.2 F 09/09/20 03:59 Pulse 104 H 09/09/20 03:59 Resp 20 09/09/20 03:59 BP 155/97 H 09/09/20 03:59 Pulse Ox 93 L 09/09/20 03:59 Weight: 284 lb - Exam General: Alert, Oriented, Cooperative HEENT: EOMI, Mucosa Moist & Liborio Negron Torres Neck: Supple Lungs: Clear to Auscultation Cardiovascular: Normal S1, Normal S2, Tachycardia GI/Abdominal Exam: Soft, Non-Tender, No Distention Neurological: Cranial Nerves Intact Neuro Extensive - Mental Status: Alert, Oriented x3, Memory Intact Neuro Extensive - Motor, Sensory, Reflexes: CN II-XII Intact Psychiatric: Depressed - Patient Data Lab Results Last 24 hrs: Laboratory Results - last 24 hr 09/08/20 09/08/20 09/08/20 Range/Units 10:34 15:48 15:48 WBC 8.64 (4.23-9.07) K/mm3 RBC 3.95 L (4.63-6.08) M/mm3 Hgb 14.6 (13.7-17.5) gm/dl Hct 42.1 (40.1-51.0) % MCV 106.6 H D (79.0-92.2) fl MCH 37.0 H (25.7-32.2) pg MCHC 34.7 (32.2-35.5) g/dl RDW Std Deviation 57.2 H (35.1-43.9) fL Plt Count 134 L D (163-337) K/mm3 MPV 9.9 (9.4-12.3) fl Neut % (Auto) 68.0 H (34.0-67.9) % Lymph % (Auto) 16.4 L (21.8-53.1) % [place] % (Auto) 13.9 H (5.3-12.2) % Eos % (Auto) 0.9 (0.8-7.0) Baso % (Auto) 0.5 (0.1-1.2) % Neut # (Auto) 5.87 H (1.78-5.38) K/mm3 Lymph # (Auto) 1.42 (1.32-3.57) K/mm3 [place] # (Auto) 1.20 H (0.30-0.82) K/mm3 Eos # (Auto) 0.08 (0.04-0.54) K/mm3 Baso # (Auto) 0.04 (0.01-0.08) K/mm3 Manual Slide Review Abnormal smear PT 12.4 H (9.7-12.0) SECONDS INR 1.16 Sodium (136-145) mEq/L Potassium (3.5-5.1) mEq/L Chloride (98-107) mEq/L Carbon Dioxide (21-32) mEq/L Anion Gap (5-15) BUN (7-18) mg/dL Creatinine (0.7-1.3) mg/dL Est Cr Clr Drug Dosing mL/min Estimated GFR (MDRD) (>60) mL/min BUN/Creatinine Ratio (14-18) Glucose (70-99) mg/dL Calcium (8.5-10.1) mg/dL Magnesium (1.8-2.4) mg/dL Total Bilirubin (0.2-1.0) mg/dL AST (15-37) U/L ALT (16-63) U/L Alkaline Phosphatase (46-116) U/L Total Protein (6.4-8.2) g/dl Albumin (3.4-5.0) g/dl Globulin gm/dL Albumin/Globulin Ratio (1-2) Ethyl Alcohol (0.00) gm% Influenza Type A RNA Negative (NEGATIVE) Influenza Type B RNA Negative (NEGATIVE) SARS-CoV-2 RNA (VANITA) Negative (NEGATIVE) 09/08/20 09/09/20 09/09/20 Range/Units 15:48 04:57 04:57 WBC 7.61 (4.23-9.07) K/mm3 RBC 3.80 L (4.63-6.08) M/mm3 Hgb 13.6 L (13.7-17.5) gm/dl Hct 41.1 (40.1-51.0) % MCV 108.2 H (79.0-92.2) fl MCH 35.8 H (25.7-32.2) pg MCHC 33.1 (32.2-35.5) g/dl RDW Std Deviation 57.7 H (35.1-43.9) fL Plt Count 111 L (163-337) K/mm3 MPV 10.2 (9.4-12.3) fl Neut % (Auto) 68.8 H (34.0-67.9) % Lymph % (Auto) 16.8 L (21.8-53.1) % [place] % (Auto) 12.1 (5.3-12.2) % Eos % (Auto) 1.6 (0.8-7.0) Baso % (Auto) 0.4 (0.1-1.2) % Neut # (Auto) 5.24 (1.78-5.38) K/mm3 Lymph # (Auto) 1.28 L (1.32-3.57) K/mm3 [place] # (Auto) 0.92 H (0.30-0.82) K/mm3 Eos # (Auto) 0.12 (0.04-0.54) K/mm3 Baso # (Auto) 0.03 (0.01-0.08) K/mm3 Manual Slide Review PT (9.7-12.0) SECONDS INR Sodium 137 138 (136-145) mEq/L Potassium 3.8 3.8 (3.5-5.1) mEq/L Chloride 100 102 (98-107) mEq/L Carbon Dioxide 23 28 (21-32) mEq/L Anion Gap 17.8 H 11.8 (5-15) BUN 3 L 4 L (7-18) mg/dL Creatinine 0.7 0.7 (0.7-1.3) mg/dL Est Cr Clr Drug Dosing 115.03 118.77 mL/min Estimated GFR (MDRD) > 60 > 60 (>60) mL/min BUN/Creatinine Ratio 4.3 L 5.7 L (14-18) Glucose 127 H 123 H (70-99) mg/dL Calcium 8.3 L 8.0 L (8.5-10.1) mg/dL Magnesium 2.0 1.9 (1.8-2.4) mg/dL Total Bilirubin 1.7 H 2.3 H (0.2-1.0) mg/dL AST 291 H 244 H (15-37) U/L ALT 88 H 77 H (16-63) U/L Alkaline Phosphatase 239 H 219 H (46-116) U/L Total Protein 7.8 7.1 (6.4-8.2) g/dl Albumin 2.6 L 2.4 L (3.4-5.0) g/dl Globulin 5.2 4.7 gm/dL Albumin/Globulin Ratio 0.5 L 0.5 L (1-2) Ethyl Alcohol 0.22 (0.00) gm% Influenza Type A RNA (NEGATIVE) Influenza Type B RNA (NEGATIVE) SARS-CoV-2 RNA (VANITA) (NEGATIVE) Result Diagrams: 09/09/20 04:57 09/09/20 04:57 Sepsis Event Note - Evaluation Sepsis Screening Result: No Definite Risk - Focused Exam Vital Signs: Vital Signs Temp Pulse Resp BP Pulse Ox Pulse Ox 09/09/20 03:59 98.2 F 104 H 20 155/97 H 93 L 09/09/20 00:00 98.2 F 103 H 22 H 129/88 95 09/08/20 21:13 93 L 09/08/20 21:00 97.6 F 119 H 20 131/90 92 L *Q Meaningful Use (ADM) - VTE *Q VTE Criteria *Q: 1 Problem List Initiated/Reviewed/Updated: Yes Orders Last 24hrs: Active Orders 24 hr Category Date Time Status Admission Status [Patient Status] [ADT] Routine ADT 09/08/20 18:09 Active CIWAA Assessment [RC] Q1HR Care 09/08/20 18:28 Active Cardiac Monitoring [RC] CONTINUOUS Care 09/08/20 18:21 Active Notify Provider [RC] PRN Care 09/08/20 18:28 Active Oxygen Therapy [RC] PRN Care 09/08/20 18:20 Active Up With Assistance [RC] ASDIRECTED Care 09/08/20 18:20 Active VTE/DVT Education [RC] Care 09/08/20 18:20 Active Consult to Case Management/Business Support [CONS] Cons 09/08/20 18:20 Active Routine Regular Diet [DIET] Diet 09/08/20 Dinner Active Abdomen Comp [US] Routine Exams 09/09/20 08:00 Ordered CBC WITH AUTO DIFF [HEME] AM Lab 09/09/20 04:57 Results HYDROmorphone [Dilaudid] Med 09/08/20 18:20 Active 0.5 mg IVPUSH Q2H PRN Heparin Sodium Med 09/08/20 18:30 Active 5,000 units SUBCUT Q8H LORazepam [Ativan] Med 09/08/20 18:30 Active See Protocol PO ASDIRECTED Lactated Ringers [Ringers, Lactated] 1,000 ml Med 09/08/20 18:30 Active IV ASDIRECTED Melatonin Med 09/08/20 18:29 Active 6 mg PO BEDTIME PRN Nicotine [Habitrol] Med 09/08/20 18:30 Active 21 mg TRDERM DAILY Sodium Chloride 0.9% [Saline Flush] Med 09/08/20 16:18 Active 10 ml FLUSH ASDIRECTED PRN oxyCODONE Med 09/08/20 18:20 Active 5 mg PO Q4H PRN Peripheral IV Insertion Adult [OM.PC] Stat Oth 09/08/20 16:19 Ordered Resuscitation Status Routine Resus Stat 09/08/20 18:20 Ordered Medication Orders Heparin Sodium (Porcine) (Heparin Sodium 5,000 Units/Ml Vial) 5,000 units SUBCUT Q8H [facility] Last Admin: 09/09/20 02:15 Dose: 5,000 units Documented by: Admin: 09/08/20 18:33 Dose: 5,000 units Documented by: CHELA Hydromorphone HCl (Hydromorphone 0.5 Mg/0.5 Ml Syringe) 0.5 mg IVPUSH Q2H PRN PRN Reason: Pain (severe 7-10) Lactated Ringer's (Ringers, Lactated) 1,000 mls @ 100 mls/hr IV ASDIRECTED [facility] Last Admin: 09/08/20 22:02 Dose: 100 mls/hr Documented by: CHELA Lorazepam (Lorazepam 1 Mg Tab) 0 mg PO ASDIRECTED [facility]; Protocol Last Admin: 09/09/20 02:15 Dose: 1 mg Documented by: Admin: 09/08/20 22:02 Dose: 1 mg Documented by: CHELA Melatonin (Melatonin 3 Mg Tab) 6 mg PO BEDTIME PRN PRN Reason: Sleep Last Admin: 09/08/20 22:05 Dose: 6 mg Documented by: CHELA Nicotine (Nicotine 21 Mg/24 Hr Patch) 21 mg TRDERM DAILY [facility] Last Admin: 09/08/20 22:02 Dose: Not Given Documented by: CHELA Oxycodone HCl (Oxycodone 5 Mg Tab) 5 mg PO Q4H PRN PRN Reason: Pain (moderate 4-6) Last Admin: 09/09/20 02:15 Dose: 5 mg Documented by: CHELA Sodium Chloride (Sodium Chloride 0.9% 10 Ml Syringe) 10 ml FLUSH ASDIRECTED PRN PRN Reason: Keep Vein Open Last Admin: 09/08/20 16:42 Dose: 10 ml Documented by: DAVID Assessment/Plan Comment:: Assessment: This is a 60M with PMHx of alcoholism, depression, COPD presenting with alcohol intoxication 1. Alcohol intoxication 2. Hx of Alcoholism 3. Transaminitis 4. Hx of HTn 5. Hx of COPD 6. Hx of HLD 7. Hx of depression and anxiety 8. Obesity Plan -IVF -CIWA alcohol withdrawal protocol -follow LFTS -check RUQ US -folate/thiamine - consult Code-full DVT ppx-heparin subq - Mortality Measure Prognosis:: Good
[2020-09-09] MEDS: Albuterol/Ipratropium 3.0-0.5 MG/3 ML Neb Soln NEB PRN (09:08)
--- NOTE | 2020-09-09 09:09 | PCM.PN ---
- General Info Date of Service: 09/09/20 Admission Dx/Problem (Free Text): Admission Diagnosis/Problem Admission Diagnosis/Problem Alcohol abuse with intoxication with complication Functional Status: Reports: Pain Controlled, Tolerating Diet, Ambulating, Urinating. Denies: New Symptoms - Review of Systems General: Reports: Weakness, Fatigue, Malaise. Denies: Fever, Chills HEENT: Denies: Headaches, Sore Throat Pulmonary: Denies: Shortness of Breath, Cough, Sputum, Wheezing Cardiovascular: Denies: Chest Pain, Palpitations, Dyspnea on Exertion, Edema Gastrointestinal: Reports: Nausea. Denies: Abdominal Pain, Constipation, Diarrhea, Vomiting Genitourinary: Denies: Pain Musculoskeletal: Reports: Back Pain (chronic ) Skin: Reports: No Symptoms Neurological: Reports: No Symptoms. Denies: Pre-Existing Deficit, Difficulty Walking, Gait Disturbance Psychiatric: Reports: Depression, Anxiety. Denies: Confusion, Agitation, Hallucinations - Patient Data Vitals - Most Recent: Last Vital Signs Temp 98.2 F 09/09/20 03:59 Pulse 104 H 09/09/20 03:59 Resp 20 09/09/20 03:59 BP 155/97 H 09/09/20 03:59 Pulse Ox 93 L 09/09/20 03:59 Weight - Most Recent: 284 lb I&O - Last 24 Hours: Intake & Output 09/08/20 09/09/20 09/09/20 22:59 06:59 14:59 Intake Total 360 832 Output Total 300 Balance 360 532 Lab Results Last 24 Hours: Laboratory Results - last 24 hr 09/08/20 09/08/20 09/08/20 Range/Units 10:34 15:48 15:48 WBC 8.64 (4.23-9.07) K/mm3 RBC 3.95 L (4.63-6.08) M/mm3 Hgb 14.6 (13.7-17.5) gm/dl Hct 42.1 (40.1-51.0) % MCV 106.6 H D (79.0-92.2) fl MCH 37.0 H (25.7-32.2) pg MCHC 34.7 (32.2-35.5) g/dl RDW Std Deviation 57.2 H (35.1-43.9) fL Plt Count 134 L D (163-337) K/mm3 MPV 9.9 (9.4-12.3) fl Neut % (Auto) 68.0 H (34.0-67.9) % Lymph % (Auto) 16.4 L (21.8-53.1) % [place] % (Auto) 13.9 H (5.3-12.2) % Eos % (Auto) 0.9 (0.8-7.0) Baso % (Auto) 0.5 (0.1-1.2) % Neut # (Auto) 5.87 H (1.78-5.38) K/mm3 Lymph # (Auto) 1.42 (1.32-3.57) K/mm3 [place] # (Auto) 1.20 H (0.30-0.82) K/mm3 Eos # (Auto) 0.08 (0.04-0.54) K/mm3 Baso # (Auto) 0.04 (0.01-0.08) K/mm3 Manual Slide Review Abnormal smear PT 12.4 H (9.7-12.0) SECONDS INR 1.16 Sodium (136-145) mEq/L Potassium (3.5-5.1) mEq/L Chloride (98-107) mEq/L Carbon Dioxide (21-32) mEq/L Anion Gap (5-15) BUN (7-18) mg/dL Creatinine (0.7-1.3) mg/dL Est Cr Clr Drug Dosing mL/min Estimated GFR (MDRD) (>60) mL/min BUN/Creatinine Ratio (14-18) Glucose (70-99) mg/dL Calcium (8.5-10.1) mg/dL Magnesium (1.8-2.4) mg/dL Total Bilirubin (0.2-1.0) mg/dL AST (15-37) U/L ALT (16-63) U/L Alkaline Phosphatase (46-116) U/L Total Protein (6.4-8.2) g/dl Albumin (3.4-5.0) g/dl Globulin gm/dL Albumin/Globulin Ratio (1-2) Ethyl Alcohol (0.00) gm% Influenza Type A RNA Negative (NEGATIVE) Influenza Type B RNA Negative (NEGATIVE) SARS-CoV-2 RNA (VANITA) Negative (NEGATIVE) 07/09/09/20 09/09/20 Range/Units 15:48 04:57 04:57 WBC 7.61 (4.23-9.07) K/mm3 RBC 3.80 L (4.63-6.08) M/mm3 Hgb 13.6 L (13.7-17.5) gm/dl Hct 41.1 (40.1-51.0) % MCV 108.2 H (79.0-92.2) fl MCH 35.8 H (25.7-32.2) pg MCHC 33.1 (32.2-35.5) g/dl RDW Std Deviation 57.7 H (35.1-43.9) fL Plt Count 111 L (163-337) K/mm3 MPV 10.2 (9.4-12.3) fl Neut % (Auto) 68.8 H (34.0-67.9) % Lymph % (Auto) 16.8 L (21.8-53.1) % [place] % (Auto) 12.1 (5.3-12.2) % Eos % (Auto) 1.6 (0.8-7.0) Baso % (Auto) 0.4 (0.1-1.2) % Neut # (Auto) 5.24 (1.78-5.38) K/mm3 Lymph # (Auto) 1.28 L (1.32-3.57) K/mm3 [place] # (Auto) 0.92 H (0.30-0.82) K/mm3 Eos # (Auto) 0.12 (0.04-0.54) K/mm3 Baso # (Auto) 0.03 (0.01-0.08) K/mm3 Manual Slide Review Abnormal smear PT (9.7-12.0) SECONDS INR Sodium 137 138 (136-145) mEq/L Potassium 3.8 3.8 (3.5-5.1) mEq/L Chloride 100 102 (98-107) mEq/L Carbon Dioxide 23 28 (21-32) mEq/L Anion Gap 17.8 H 11.8 (5-15) BUN 3 L 4 L (7-18) mg/dL Creatinine 0.7 0.7 (0.7-1.3) mg/dL Est Cr Clr Drug Dosing 115.03 118.77 mL/min Estimated GFR (MDRD) > 60 > 60 (>60) mL/min BUN/Creatinine Ratio 4.3 L 5.7 L (14-18) Glucose 127 H 123 H (70-99) mg/dL Calcium 8.3 L 8.0 L (8.5-10.1) mg/dL Magnesium 2.0 1.9 (1.8-2.4) mg/dL Total Bilirubin 1.7 H 2.3 H (0.2-1.0) mg/dL AST 291 H 244 H (15-37) U/L ALT 88 H 77 H (16-63) U/L Alkaline Phosphatase 239 H 219 H (46-116) U/L Total Protein 7.8 7.1 (6.4-8.2) g/dl Albumin 2.6 L 2.4 L (3.4-5.0) g/dl Globulin 5.2 4.7 gm/dL Albumin/Globulin Ratio 0.5 L 0.5 L (1-2) Ethyl Alcohol 0.22 (0.00) gm% Influenza Type A RNA (NEGATIVE) Influenza Type B RNA (NEGATIVE) SARS-CoV-2 RNA (VANITA) (NEGATIVE) Med Orders - Current: Current Medications Albuterol/Ipratropium (Albuterol/Ipratropium 3.0-0.5 Mg/3 Ml Neb Soln) 3 ml NEB Q6HRRT PRN PRN Reason: Wheezing Last Admin: 09/09/20 09:08 Dose: 3 ml Documented by: Heparin Sodium (Porcine) (Heparin Sodium 5,000 Units/Ml Vial) 5,000 units SUBCUT Q8H LEONARDA Last Admin: 09/09/20 02:15 Dose: 5,000 units Documented by: Hydromorphone HCl (Hydromorphone 0.5 Mg/0.5 Ml Syringe) 0.5 mg IVPUSH Q2H PRN PRN Reason: Pain (severe 7-10) Lactated Ringer's (Ringers, Lactated) 1,000 mls @ 100 mls/hr IV ASDIRECTED [facility] Last Admin: 09/08/20 22:02 Dose: 100 mls/hr Documented by: Lorazepam (Lorazepam 1 Mg Tab) 0 mg PO ASDIRECTED [facility]; Protocol Last Admin: 09/09/20 07:46 Dose: 1 mg Documented by: Melatonin (Melatonin 3 Mg Tab) 6 mg PO BEDTIME PRN PRN Reason: Sleep Last Admin: 09/08/20 22:05 Dose: 6 mg Documented by: Miscellaneous Information (Remove Nicotine Patch) 1 ea TRDERM DAILY [facility] Nicotine (Nicotine 21 Mg/24 Hr Patch) 21 mg TRDERM DAILY LEONARDA Last Admin: 09/08/20 22:02 Dose: Not Given Documented by: Oxycodone HCl (Oxycodone 5 Mg Tab) 5 mg PO Q4H PRN PRN Reason: Pain (moderate 4-6) Last Admin: 09/09/20 07:45 Dose: 5 mg Documented by: Sodium Chloride (Sodium Chloride 0.9% 10 Ml Syringe) 10 ml FLUSH ASDIRECTED PRN PRN Reason: Keep Vein Open Last Admin: 09/08/20 16:42 Dose: 10 ml Documented by: Discontinued Medications Folic Acid (Folic Acid 1 Mg Tab) 1 mg PO ONETIME ONE Stop: 09/08/20 16:19 Last Admin: 09/08/20 16:42 Dose: 1 mg Documented by: Sodium Chloride (Normal Saline) 1,000 mls @ 500 mls/hr IV ONETIME ONE Stop: 09/08/20 18:17 Last Admin: 09/08/20 16:41 Dose: 500 mls/hr Documented by: Multivitamins/Minerals/Vitamin C (Multivitamin Tab) 1 tab PO ONETIME ONE Stop: 09/08/20 18:29 Last Admin: 09/08/20 22:05 Dose: 1 tab Documented by: Ondansetron HCl (Ondansetron 4 Mg/2 Ml Sdv) 4 mg IVPUSH ONETIME ONE Stop: 09/08/20 16:20 Last Admin: 09/08/20 16:41 Dose: 4 mg Documented by: Thiamine HCl (Thiamine 100 Mg Tab) 100 mg PO ONETIME ONE Stop: 09/08/20 16:19 Last Admin: 09/08/20 16:42 Dose: 100 mg Documented by: - Exam Quality Assessment: Supplemental Oxygen (3L), DVT Prophylaxis. No: Urine Catheter General: Alert, Oriented, Cooperative, No Acute Distress HEENT: Pupils Equal, Pupils Reactive, Mucous Membr. Moist/[place] Neck: Supple, Trachea Midline Lungs: Clear to Auscultation, Normal Respiratory Effort Cardiovascular: Regular Rhythm, Tachycardia GI/Abdominal Exam: Normal Bowel Sounds, Soft, Non-Tender, No Distention (Male) Exam: Deferred Back Exam: Normal Inspection, Full Range of Motion Extremities: Normal Inspection, Normal Range of Motion, Non-Tender, No Pedal Edema, Normal Capillary Refill Peripheral Pulses: 2+: Radial (L), Radial (R), Dorsalis Pedis (L), Dorsalis Pedis (R) Skin: Warm, Dry, Intact Neurological: No New Focal Deficit Psy/Mental Status: Alert, Anxious, Depressed, Withdrawal Symptoms. No: Agitated, Hallucinations - Patient Data Lab Results Last 24 hrs: Laboratory Results - last 24 hr 09/08/20 09/08/20 09/08/20 Range/Units 10:34 15:48 15:48 WBC 8.64 (4.23-9.07) K/mm3 RBC 3.95 L (4.63-6.08) M/mm3 Hgb 14.6 (13.7-17.5) gm/dl Hct 42.1 (40.1-51.0) % MCV 106.6 H D (79.0-92.2) fl MCH 37.0 H (25.7-32.2) pg MCHC 34.7 (32.2-35.5) g/dl RDW Std Deviation 57.2 H (35.1-43.9) fL Plt Count 134 L D (163-337) K/mm3 MPV 9.9 (9.4-12.3) fl Neut % (Auto) 68.0 H (34.0-67.9) % Lymph % (Auto) 16.4 L (21.8-53.1) % [place] % (Auto) 13.9 H (5.3-12.2) % Eos % (Auto) 0.9 (0.8-7.0) Baso % (Auto) 0.5 (0.1-1.2) % Neut # (Auto) 5.87 H (1.78-5.38) K/mm3 Lymph # (Auto) 1.42 (1.32-3.57) K/mm3 [place] # (Auto) 1.20 H (0.30-0.82) K/mm3 Eos # (Auto) 0.08 (0.04-0.54) K/mm3 Baso # (Auto) 0.04 (0.01-0.08) K/mm3 Manual Slide Review Abnormal smear PT 12.4 H (9.7-12.0) SECONDS INR 1.16 Sodium (136-145) mEq/L Potassium (3.5-5.1) mEq/L Chloride (98-107) mEq/L Carbon Dioxide (21-32) mEq/L Anion Gap (5-15) BUN (7-18) mg/dL Creatinine (0.7-1.3) mg/dL Est Cr Clr Drug Dosing mL/min Estimated GFR (MDRD) (>60) mL/min BUN/Creatinine Ratio (14-18) Glucose (70-99) mg/dL Calcium (8.5-10.1) mg/dL Magnesium (1.8-2.4) mg/dL Total Bilirubin (0.2-1.0) mg/dL AST (15-37) U/L ALT (16-63) U/L Alkaline Phosphatase (46-116) U/L Total Protein (6.4-8.2) g/dl Albumin (3.4-5.0) g/dl Globulin gm/dL Albumin/Globulin Ratio (1-2) Ethyl Alcohol (0.00) gm% Influenza Type A RNA Negative (NEGATIVE) Influenza Type B RNA Negative (NEGATIVE) SARS-CoV-2 RNA (VANITA) Negative (NEGATIVE) 09/08/20 09/09/20 09/09/20 Range/Units 15:48 04:57 04:57 WBC 7.61 (4.23-9.07) K/mm3 RBC 3.80 L (4.63-6.08) M/mm3 Hgb 13.6 L (13.7-17.5) gm/dl Hct 41.1 (40.1-51.0) % MCV 108.2 H (79.0-92.2) fl MCH 35.8 H (25.7-32.2) pg MCHC 33.1 (32.2-35.5) g/dl RDW Std Deviation 57.7 H (35.1-43.9) fL Plt Count 111 L (163-337) K/mm3 MPV 10.2 (9.4-12.3) fl Neut % (Auto) 68.8 H (34.0-67.9) % Lymph % (Auto) 16.8 L (21.8-53.1) % [place] % (Auto) 12.1 (5.3-12.2) % Eos % (Auto) 1.6 (0.8-7.0) Baso % (Auto) 0.4 (0.1-1.2) % Neut # (Auto) 5.24 (1.78-5.38) K/mm3 Lymph # (Auto) 1.28 L (1.32-3.57) K/mm3 [place] # (Auto) 0.92 H (0.30-0.82) K/mm3 Eos # (Auto) 0.12 (0.04-0.54) K/mm3 Baso # (Auto) 0.03 (0.01-0.08) K/mm3 Manual Slide Review Abnormal smear PT (9.7-12.0) SECONDS INR Sodium 137 138 (136-145) mEq/L Potassium 3.8 3.8 (3.5-5.1) mEq/L Chloride 100 102 (98-107) mEq/L Carbon Dioxide 23 28 (21-32) mEq/L Anion Gap 17.8 H 11.8 (5-15) BUN 3 L 4 L (7-18) mg/dL Creatinine 0.7 0.7 (0.7-1.3) mg/dL Est Cr Clr Drug Dosing 115.03 118.77 mL/min Estimated GFR (MDRD) > 60 > 60 (>60) mL/min BUN/Creatinine Ratio 4.3 L 5.7 L (14-18) Glucose 127 H 123 H (70-99) mg/dL Calcium 8.3 L 8.0 L (8.5-10.1) mg/dL Magnesium 2.0 1.9 (1.8-2.4) mg/dL Total Bilirubin 1.7 H 2.3 H (0.2-1.0) mg/dL AST 291 H 244 H (15-37) U/L ALT 88 H 77 H (16-63) U/L Alkaline Phosphatase 239 H 219 H (46-116) U/L Total Protein 7.8 7.1 (6.4-8.2) g/dl Albumin 2.6 L 2.4 L (3.4-5.0) g/dl Globulin 5.2 4.7 gm/dL Albumin/Globulin Ratio 0.5 L 0.5 L (1-2) Ethyl Alcohol 0.22 (0.00) gm% Influenza Type A RNA (NEGATIVE) Influenza Type B RNA (NEGATIVE) SARS-CoV-2 RNA (VANITA) (NEGATIVE) Result Diagrams: 09/09/20 04:57 09/09/20 04:57 Sepsis Event Note - Evaluation Sepsis Screening Result: No Definite Risk - Focused Exam Vital Signs: Vital Signs Temp Pulse Resp BP Pulse Ox Pulse Ox 09/09/20 03:59 98.2 F 104 H 20 155/97 H 93 L 09/09/20 00:00 98.2 F 103 H 22 H 129/88 95 09/08/20 21:13 93 L - Problem List & Annotations (1) Transaminitis SNOMED Code(s): 494754519, 603378812 Code(s): R74.01 - ELEVATION OF LEVELS OF LIVER TRANSAMINASE LEVELS Status: Acute Priority: High Current Visit: Yes (2) HTN (hypertension) SNOMED Code(s): 11225910 Code(s): I10 - ESSENTIAL (PRIMARY) HYPERTENSION Status: Chronic Priority: Medium Current Visit: No Qualifiers: Hypertension type: unspecified Qualified Code(s): I10 - Essential (primary) hypertension (3) COPD (chronic obstructive pulmonary disease) SNOMED Code(s): 36859058 Code(s): J44.9 - CHRONIC OBSTRUCTIVE PULMONARY DISEASE, UNSPECIFIED Status: Chronic Priority: Medium Current Visit: Yes Qualifiers: COPD type: unspecified COPD Qualified Code(s): J44.9 - Chronic obstructive pulmonary disease, unspecified (4) HLD (hyperlipidemia) SNOMED Code(s): 74148473 Code(s): E78.5 - HYPERLIPIDEMIA, UNSPECIFIED Status: Chronic Priority: Low Current Visit: No Qualifiers: Hyperlipidemia type: unspecified Qualified Code(s): E78.5 - Hyperlipidemia, unspecified (5) History of methamphetamine use SNOMED Code(s): 606395154 Code(s): Z87.898 - PERSONAL HISTORY OF OTHER SPECIFIED CONDITIONS Status: Chronic Priority: Medium Current Visit: Yes (6) Depression SNOMED Code(s): 51408152 Code(s): F32.9 - MAJOR DEPRESSIVE DISORDER, SINGLE EPISODE, UNSPECIFIED Status: Chronic Priority: Medium Current Visit: Yes Qualifiers: Depression Type: other depression Qualified Code(s): F32.89 - Other specifi ed depressive episodes (7) Anxiety SNOMED Code(s): 11490713 Code(s): F41.9 - ANXIETY DISORDER, UNSPECIFIED Status: Chronic Priority: Medium Current Visit: Yes (8) Obesity SNOMED Code(s): 307869949, 878906128 Code(s): E66.9 - OBESITY, UNSPECIFIED Status: Chronic Priority: Medium Current Visit: Yes Qualifiers: Obesity type: unspecified obesity type Obesity classification: adult class 3 (BMI >= 40) Serious obesity comorbidity presence: unspecified whether serious comorbidity present Body mass index: BMI 40.0-44.9 Qualified Code(s): E66.01 - Morbid (severe) obesity due to excess calories; Z68.41 - Body mass index [BMI]40.0-44.9, adult (9) PTSD (post-traumatic stress disorder) SNOMED Code(s): 20653157 Code(s): F43.10 - POST-TRAUMATIC STRESS DISORDER, UNSPECIFIED Status: Chronic Priority: Medium Current Visit: No (10) Nicotine use SNOMED Code(s): 190515109 Code(s): Z72.0 - TOBACCO USE Status: Chronic Priority: Medium Current Visit: Yes (11) Chronic back pain SNOMED Code(s): 240097113 Code(s): M54.9 - DORSALGIA, UNSPECIFIED; G89.29 - OTHER CHRONIC PAIN Status: Chronic Priority: Low Current Visit: Yes Qualifiers: Back pain location: back pain in unspecified location Back pain laterality: unspecified Qualified Code(s): M54.9 - Dorsalgia, unspecified; G89.29 - Other chronic pain (12) Osteoarthritis SNOMED Code(s): 214315720 Code(s): M19.90 - UNSPECIFIED OSTEOARTHRITIS, UNSPECIFIED SITE Status: Chronic Priority: Low Current Visit: No Qualifiers: Osteoarthritis location: unspecified site Osteoarthritis type: unspecified Qualified Code(s): M19.90 - Unspecified osteoarthritis, unspecified site (13) Alcohol abuse with intoxication SNOMED Code(s): 60327287 Code(s): F10.129 - ALCOHOL ABUSE WITH INTOXICATION, UNSPECIFIED Status: Acute Current Visit: Yes (14) Chronic alcoholism SNOMED Code(s): 5228856 Code(s): F10.20 - ALCOHOL DEPENDENCE, UNCOMPLICATED Status: Chronic Priority: High Current Visit: Yes (15) Hyperbilirubinemia SNOMED Code(s): 78877007 Code(s): E80.6 - OTHER DISORDERS OF BILIRUBIN METABOLISM Status: Acute Priority: Medium Current Visit: Yes (16) Sleep apnea SNOMED Code(s): 21217219 Code(s): G47.30 - SLEEP APNEA, UNSPECIFIED Status: Suspected Priority: Medium Current Visit: Yes Qualifiers: Sleep apnea type: unspecified type Qualified Code(s): G47.30 - Sleep apnea, unspecified - Problem List Review Problem List Initiated/Reviewed/Updated: Yes - Assessment Assessment:: Assessment - day of admission - 09/08/2020 Assessment: This is a 60M with PMHx of alcoholism, depression, COPD presenting with alcohol intoxication 1. Alcohol intoxication 2. Hx of Alcoholism 3. Transaminitis 4. Hx of HTn 5. Hx of COPD 6. Hx of HLD 7. Hx of depression and anxiety 8. Obesity Plan -IVF -CIWA alcohol withdrawal protocol -follow LFTS -check RUQ US -folate/thiamine - consult Code-full DVT ppx-heparin subq 09/09/2020 60-year-old male who presents to ED on 09/08/2020 testing assistance with alcohol intoxication and detox. He reports he has been drinking 20 beers a day since he was around 18 years old with a occasional episodes of sobriety that do not last very long. He reports his fiance 2 days ago. He reported to the [facility] for detox who sent him here. No history of alcohol withdrawal seizures. [facility] with the [facility]. At the alcohol level on admission was 0.22. Labs been grossly stable today. WBC 7.61. Hemoglobin 13.6. Platelet 111,000 neutrophils are elevated 68.8%. Sodium is 138. Potassium 3.8. BUN is 4. Creatinine 0.7. GFR greater than 60. Glucose is 123. Calcium 8.0. Magnesium 1.9. Total bilirubin 2.3. AST is 244. ALT 77. Alkaline phosphatase 219. Albumin is 2.4. Hold medications were reconciled today. He does have a history of COPD and will continue his respiratory medications. I-S and Acapella are ordered. Respiratory consultation is ordered. Suspect a component of sleep apnea and would like patient to obtain sleep study after discharge. Has been re quiring 3 L of oxygen while here. He is not normally on oxygen. He has been mildly tachycardic and mildly hypertensive. CIWA protocol is in place. CIWA score has been from 3-9 since admission. Denies any current hallucinations but states he is somewhat anxious and very tired. Case management and social work consulted. Abdominal ultrasound was obtained although was noted there was difficulty viewing midline structures due to bowel gas and body habitus. There is probable fatty infiltration and mild enlargement of the liver. Gallbladder and kidneys showed nothing acute. Hepatitis panel is ordered and pending. We will obtain fractionated bilirubin as well. Patient will remain hospitalized pending progression of withdrawal symptoms and disposition plan. - Plan Plan:: Alcohol abuse with intoxication Chronic alcoholism History of methamphetamine use * 1 gm folic acid daily * 100mg daily thiamine * CIWA protocol * IV fluids as ordered * CM/SW consultation * Monitor electrolytes * Telemetry Depression Anxiety PTSD (post-traumatic stress disorder) * Home medications as ordered * Monitor need for psychiatry consultation Transaminitis Hyperbilirubinemia * IV fluids as ordered * Direct/indirect bilirubin * Hepatitis panel * Abdominal ultrasound obtained - see report * Avoid hepatotoxic meds if able HTN (hypertension) * Home medications as ordered * No acute concerns * Monitor vital signs COPD (chronic obstructive pulmonary disease) Suspected sleep apnea * RT consultation * Continue home respiratory meds * IS * Duonebs as needed * O2 as needed to keep saturations >88% * Recommend outpatient sleep study after discharge HLD (hyperlipidemia) * No acute concerns Nicotine use * 21mg nicotine patch daily * Cessation counseling * Offer nicotine patches at discharge Chronic back pain Osteoarthritis Obesity * PT/OT * 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 Villanueva with the [facility] DVT prophylaxis: Heparin Subcutaneous Disposition: Patient admitted to the ICU for alcohol intoxication and withdrawal. Length of stay likely 3 to 4 days.
[2020-09-09] MEDS ORDERED: Potassium Chloride 20 MEQ Tab.ER PO ONE (09:10)
[2020-09-09] MEDS ORDERED: Magnesium Oxide 400 MG Tab PO ONE (09:10)
--- NOTE | 2020-09-09 09:12 | US ---
Abdominal ultrasound: Multiple real-time images of the abdomen were obtained. Comparison: No prior abdominal imaging is available. Findings: Liver is irregular in its echo pattern as well as being mildly enlarged. Findings are suspicious for irregular fatty infiltration. Gallbladder contains no shadowing gallstones. No gallbladder wall thickening is seen. Common bile duct and common biliary duct are not well seen. Kidneys show no hydronephrosis or mass. Right kidney measures 12.5 cm and left kidney measures 12.0 cm. Pancreas is poorly seen. Visualized portions of the pancreas appear within normal limits. Abdominal aorta and inferior vena cava are poorly seen. Main portal vein shows normal hepatopedal flow. Impression: 1. Midline structures are not well seen due to bowel gas and body habitus. 2. Probable fatty infiltration as well as mild enlargement of the liver. 3. Gallbladder and kidneys show nothing acute. Diagnostic code #3
[2020-09-09] MEDS: Nicotine 21 MG/24 Hr Patch TRDERM SCH (09:39)
[2020-09-09] MEDS: Thiamine 100 MG Tab PO SCH (09:40)
[2020-09-09] MEDS: Folic Acid 1 MG Tab PO SCH (09:40)
[2020-09-09] MEDS: Gabapentin 300 MG Cap PO SCH ×2 (11:29→17:45)
[2020-09-09] MEDS: amLODIPine 5 MG Tab PO SCH (11:30)
[2020-09-09] MEDS: Atenolol 25 MG Tab PO SCH (11:30)
[2020-09-09] MEDS: TIOTROPIUM BROMIDE INH SCH (11:42)
[2020-09-09] MEDS: BUDESONIDE INH SCH ×2 (11:42→20:45)
[2020-09-09] MEDS: FORMOTEROL INH SCH ×2 (11:42→20:45)
[2020-09-09] MEDS ORDERED: buPROPion 100 MG Tab.SR PO SCH (12:00)
[2020-09-09] MEDS ORDERED: Furosemide 20 MG/2 ML VIAL IVPUSH ONE (12:03)
[2020-09-09] MEDS: Benzocaine/Cetylpyridinium/Menthol Lozenge MUCMEM PRN (12:38)
[2020-09-09] MEDS ORDERED: Albuterol 0.083% 2.5 MG/3 ML Neb Soln NEB PRN (15:21)
[2020-09-09] MEDS: Lactated Ringers 1,000 ML IV SCH (17:47)
[2020-09-09] MEDS: Melatonin 3 MG Tab PO PRN (21:02)
[2020-09-10] MEDS: Heparin Sodium 5,000 Units/ML Vial SUBCUT SCH ×3 (03:00→18:14)
[2020-09-10] MEDS: DULoxetine 30 MG Cap PO SCH (05:35)
[2020-09-10] MEDS: Gabapentin 300 MG Cap PO SCH ×3 (05:36→16:58)
[2020-09-10] MEDS: oxyCODONE 5 MG Tab PO PRN ×4 (05:45→19:39)
[2020-09-10] MEDS: Albuterol/Ipratropium 3.0-0.5 MG/3 ML Neb Soln NEB PRN (08:26)
[2020-09-10] MEDS: FORMOTEROL INH SCH ×2 (08:27→20:31)
[2020-09-10] MEDS: BUDESONIDE INH SCH ×2 (08:27→20:31)
[2020-09-10] MEDS: TIOTROPIUM BROMIDE INH SCH (08:27)
[2020-09-10] MEDS: Thiamine 100 MG Tab PO SCH (09:06)
[2020-09-10] MEDS: Nicotine 21 MG/24 Hr Patch TRDERM SCH (09:06)
[2020-09-10] MEDS: Folic Acid 1 MG Tab PO SCH (09:06)
[2020-09-10] MEDS: amLODIPine 5 MG Tab PO SCH (09:06)
[2020-09-10] MEDS: Atenolol 25 MG Tab PO SCH (09:06)
[2020-09-10] MEDS: Potassium Chloride 20 MEQ Tab.ER PO SCH (09:06)
[2020-09-10] MEDS: LORazepam 1 MG Tab PO SCH ×3 (09:59→19:40)
--- NOTE | 2020-09-10 12:42 | PCM.PN ---
- General Info Date of Service: 09/10/20 Admission Dx/Problem (Free Text): Alcohol withdrawal Subjective Update: Patient endorses night sweats and tremors endorses anxiety denies chest pain SOB at baseline tolerating diet - Patient Data Vitals - Most Recent: Last Vital Signs Temp 97.3 F 09/10/20 08:00 Pulse 106 H 09/10/20 09:06 Resp 18 09/10/20 08:00 BP 159/98 H 09/10/20 09:06 Pulse Ox 92 L 09/10/20 08:28 Weight - Most Recent: 286 lb I&O - Last 24 Hours: Intake & Output 09/09/20 09/10/20 09/10/20 22:59 06:59 14:59 Intake Total 3740 1000 240 Output Total 700 800 Balance 3040 200 240 Lab Results Last 24 Hours: Laboratory Results - last 24 hr 09/10/20 Range/Units 05:45 Sodium 140 (136-145) mEq/L Potassium 3.9 (3.5-5.1) mEq/L Chloride 102 (98-107) mEq/L Carbon Dioxide 32 (21-32) mEq/L Anion Gap 9.9 (5-15) BUN 4 L (7-18) mg/dL Creatinine 0.7 (0.7-1.3) mg/dL Est Cr Clr Drug Dosing 118.77 mL/min Estimated GFR (MDRD) > 60 (>60) mL/min BUN/Creatinine Ratio 5.7 L (14-18) Glucose 106 H (70-99) mg/dL Calcium 8.0 L (8.5-10.1) mg/dL Magnesium 1.8 (1.8-2.4) mg/dL Total Bilirubin 2.5 H (0.2-1.0) mg/dL AST 192 H (15-37) U/L ALT 68 H (16-63) U/L Alkaline Phosphatase 209 H (46-116) U/L Total Protein 6.9 (6.4-8.2) g/dl Albumin 2.2 L (3.4-5.0) g/dl Globulin 4.7 gm/dL Albumin/Globulin Ratio 0.5 L (1-2) Med Orders - Current: Current Medications Albuterol (Albuterol 0.083% 2.5 Mg/3 Ml Neb Soln) 2.5 mg NEB Q2H PRN PRN Reason: SOB/Wheezing Albuterol/Ipratropium (Albuterol/Ipratropium 3.0-0.5 Mg/3 Ml Neb Soln) 3 ml NEB Q6HRRT PRN PRN Reason: Wheezing Last Admin: 09/10/20 08:26 Dose: 3 ml Documented by: Amlodipine Besylate (Amlodipine 5 Mg Tab) 5 mg PO DAILY [facility] Last Admin: 09/10/20 09:06 Dose: 5 mg Documented by: Atenolol (Atenolol 25 Mg Tab) 25 mg PO DAILY [facility] Last Admin: 09/10/20 09:06 Dose: 25 mg Documented by: Benzocaine/Menthol (Benzocaine/Cetylpyridinium/Menthol Lozenge) 1 lozenge MUCMEM 6XDAY PRN PRN Reason: Throat irritation Last Admin: 09/09/20 12:38 Dose: 1 lozenge Documented by: Duloxetine HCl (Duloxetine 30 Mg Cap) 120 mg PO ACBREAKFAST [facility] Last Admin: 09/10/20 05:35 Dose: 120 mg Documented by: Folic Acid (Folic Acid 1 Mg Tab) 1 mg PO DAILY [facility] Last Admin: 09/10/20 09:06 Dose: 1 mg Documented by: Gabapentin (Gabapentin 300 Mg Cap) 300 mg PO TID@0600,1200,1700 [facility] Last Admin: 09/10/20 05:36 Dose: 300 mg Documented by: Heparin Sodium (Porcine) (Heparin Sodium 5,000 Units/Ml Vial) 5,000 units SUBCUT Q8H [facility] Last Admin: 09/10/20 10:00 Dose: 5,000 units Documented by: Hydromorphone HCl (Hydromorphone 0.5 Mg/0.5 Ml Syringe) 0.5 mg IVPUSH Q2H PRN PRN Reason: Pain (severe 7-10) Lorazepam (Lorazepam 1 Mg Tab) 0 mg PO ASDIRECTED [facility]; Protocol Last Admin: 09/10/20 09:59 Dose: 1 mg Documented by: Melatonin (Melatonin 3 Mg Tab) 6 mg PO BEDTIME PRN PRN Reason: Sleep Last Admin: 09/09/20 21:02 Dose: 6 mg Documented by: Miscellaneous Information (Remove Nicotine Patch) 1 ea TRDERM DAILY [facility] Last Admin: 09/10/20 09:06 Dose: 1 ea Documented by: Nicotine (Nicotine 21 Mg/24 Hr Patch) 21 mg TRDERM DAILY [facility] Last Admin: 09/10/20 09:06 Dose: 21 mg Documented by: Oxycodone HCl (Oxycodone 5 Mg Tab) 5 mg PO Q4H PRN PRN Reason: Pain (moderate 4-6) Last Admin: 09/10/20 09:59 Dose: 5 mg Documented by: Budesonide/Formoterol 160/4.5 Mcg Inhaler Patient's Own Med 0 each INH BID [facility] Last Admin: 09/10/20 08:27 Dose: 2 each Documented by: Potassium Chloride (Potassium Chloride 20 Meq Tab.Er) 20 meq PO DAILY [facility] Last Admin: 09/10/20 09:06 Dose: 20 meq Documented by: Sodium Chloride (Sodium Chloride 0.9% 10 Ml Syringe) 10 ml FLUSH ASDIRECTED PRN PRN Reason: Keep Vein Open Last Admin: 09/08/20 16:42 Dose: 10 ml Documented by: Thiamine HCl (Thiamine 100 Mg Tab) 100 mg PO DAILY [facility] Last Admin: 09/10/20 09:06 Dose: 100 mg Documented by: Tiotropium [place] (Tiotropium [place] 4 Gm Inhalation [place] (2.5mcg/1 Dose) * Patient's Own Med *) 0 gm INH DAILY [facility] Last Admin: 09/10/20 08:27 Dose: 2 inhalation Documented by: Discontinued Medications Bupropion HCl (Bupropion 100 Mg Tab.Sr) 100 mg PO 0600,1200,1700 [facility] Folic Acid (Folic Acid 1 Mg Tab) 1 mg PO ONETIME ONE Stop: 09/08/20 16:19 Last Admin: 09/08/20 16:42 Dose: 1 mg Documented by: Furosemide (Furosemide 20 Mg/2 Ml Vial) 20 mg IVPUSH ONETIME ONE Stop: 09/09/20 12:04 Last Admin: 09/09/20 12:38 Dose: 20 mg Documented by: Sodium Chloride (Normal Saline) 1,000 mls @ 500 mls/hr IV ONETIME ONE Stop: 09/08/20 18:17 Last Admin: 09/08/20 16:41 Dose: 500 mls/hr Documented by: Lactated Ringer's (Ringers, Lactated) 1,000 mls @ 100 mls/hr IV ASDIRECTED [facility] Last Admin: 09/09/20 17:47 Dose: 100 mls/hr Documented by: Magnesium Oxide (Magnesium Oxide 400 Mg Tab) 400 mg PO ONETIME ONE Stop: 09/09/20 09:11 Last Admin: 09/09/20 09:40 Dose: 400 mg Documented by: Multivitamins/Minerals/Vitamin C (Multivitamin Tab) 1 tab PO ONETIME ONE Stop: 09/08/20 18:29 Last Admin: 09/08/20 22:05 Dose: 1 tab Documented by: Ondansetron HCl (Ondansetron 4 Mg/2 Ml Sdv) 4 mg IVPUSH ONETIME ONE Stop: 09/08/20 16:20 Last Admin: 09/08/20 16:41 Dose: 4 mg Documented by: Potassium Chloride (Potassium Chloride 20 Meq Tab.Er) 20 meq PO ONETIME ONE Stop: 09/09/20 09:11 Last Admin: 09/09/20 09:40 Dose: 20 meq Documented by: Thiamine HCl (Thiamine 100 Mg Tab) 100 mg PO ONETIME ONE Stop: 09/08/20 16:19 Last Admin: 09/08/20 16:42 Dose: 100 mg Documented by: - Exam Physical Findings Comments:: Gen: No acute distress HEENT: NCAT EOMI MMM Neck Supple CV: Tachycardic; normal s1 s2 Lungs: CTAB Abd: soft, nt, nd Neuro: AOX3, mild tremors of hand Psych: appropriate affect - Patient Data Lab Results Last 24 hrs: Laboratory Results - last 24 hr 09/10/20 Range/Units 05:45 Sodium 140 (136-145) mEq/L Potassium 3.9 (3.5-5.1) mEq/L Chloride 102 (98-107) mEq/L Carbon Dioxide 32 (21-32) mEq/L Anion Gap 9.9 (5-15) BUN 4 L (7-18) mg/dL Creatinine 0.7 (0.7-1.3) mg/dL Est Cr Clr Drug Dosing 118.77 mL/min Estimated GFR (MDRD) > 60 (>60) mL/min BUN/Creatinine Ratio 5.7 L (14-18) Glucose 106 H (70-99) mg/dL Calcium 8.0 L (8.5-10.1) mg/dL Magnesium 1.8 (1.8-2.4) mg/dL Total Bilirubin 2.5 H (0.2-1.0) mg/dL AST 192 H (15-37) U/L ALT 68 H (16-63) U/L Alkaline Phosphatase 209 H (46-116) U/L Total Protein 6.9 (6.4-8.2) g/dl Albumin 2.2 L (3.4-5.0) g/dl Globulin 4.7 gm/dL Albumin/Globulin Ratio 0.5 L (1-2) Result Diagrams: 09/09/20 04:57 09/10/20 05:45 Sepsis Event Note - Evaluation Sepsis Screening Result: No Definite Risk - Focused Exam Vital Signs: Vital Signs Temp Pulse Resp BP BP Pulse Ox Pulse Ox 09/10/20 09:06 106 H 159/98 H 09/10/20 08:28 92 L 09/10/20 08:00 97.3 F 18 159/98 H 92 L 09/10/20 04:02 97.2 F 18 138/101 H 138/101 H 92 L 09/10/20 04:01 93 L 09/10/20 04:00 90 L 09/10/20 03:00 89 L 09/10/20 02:00 91 L 09/10/20 01:00 92 L 09/10/20 00:43 18 133/93 H 133/93 H 92 L 09/10/20 00:42 95 89 L - Problem List Review Problem List Initiated/Reviewed/Updated: Yes - My Orders Last 24 Hours: My Active Orders 09/09/20 11:37 Benzocaine/Cetylpyrd/Menthol [Cepacol Sore Throat] 1 lozenge MUCMEM 6XDAY PRN 09/10/20 09:00 Remove Patch 1 ea TRDERM DAILY 09/10/20 09:29 Patient Status [ADT] Routine - Assessment Assessment:: Assessment - day of admission - 09/08/2020 Assessment: This is a 60M with PMHx of alcoholism, depression, COPD presenting with alcohol intoxication 1. Alcohol intoxication 2. Hx of Alcoholism 3. Transaminitis 4. Hx of HTn 5. Hx of COPD 6. Hx of HLD 7. Hx of depression and anxiety 8. Obesity Plan -IVF -[facility] alcohol withdrawal protocol -follow LFTS -check RUQ US -folate/thiamine -sw consult Code-full DVT ppx-heparin subq 09/09/2020 60-year-old male who presents to ED on 09/08/2020 testing assistance with alcohol intoxication and detox. He reports he has been drinking 20 beers a day since he was around 18 years old with a occasional episodes of sobriety that do not last very long. He reports his fiance 2 days ago. He reported to the [facility] for detox who sent him here. No history of alcohol withdrawal seizures. He f ollows with the [facility]. At the alcohol level on admission was 0.22. Labs been grossly stable today. WBC 7.61. Hemoglobin 13.6. Platelet 111,000 neutrophils are elevated 68.8%. Sodium is 138. Potassium 3.8. BUN is 4. Creatinine 0.7. GFR greater than 60. Glucose is 123. Calcium 8.0. Magnesium 1.9. Total bilirubin 2.3. AST is 244. ALT 77. Alkaline phosphatase 219. Albumin is 2.4. Hold medications were reconciled today. He does have a history of COPD and will continue his respiratory medications. I-S and Acapella are ordered. Respiratory consultation is ordered. Suspect a component of sleep apnea and would like patient to obtain sleep study after discharge. Has been re quiring 3 L of oxygen while here. He is not normally on oxygen. He has been mildly tachycardic and mildly hypertensive. CIWA protocol is in place. CIWA score has been from 3-9 since admission. Denies any current hallucinations but states he is somewhat anxious and very tired. Case management and social work consulted. Abdominal ultrasound was obtained although was noted there was difficulty viewing midline structures due to bowel gas and body habitus. There is probable fatty infiltration and mild enlargement of the liver. Gallbladder and kidneys showed nothing acute. Hepatitis panel is ordered and pending. We will obtain fractionated bilirubin as well. Patient will remain hospitalized pending progression of withdrawal symptoms and disposition plan. - Plan Plan:: Alcohol abuse with intoxication Chronic alcoholism History of methamphetamine use * 1 gm folic acid daily * 100mg daily thiamine * CIWA protocol * IV fluids as ordered-->Discontinue today * CM/SW consultation * Monitor electrolytes * Telemetry Depression Anxiety PTSD (post-traumatic stress disorder) * Home medications as ordered * Monitor need for psychiatry consultation Transaminitis Hyperbilirubinemia * IV fluids as ordered-Discontinue today * Direct/indirect bilirubin * Hepatitis panel * Abdominal ultrasound obtained - see report no findings of acute cholecystitis * Avoid hepatotoxic meds if able HTN (hypertension) * Home medications as ordered * No acute concerns * Monitor vital signs COPD (chronic obstructive pulmonary disease) Suspected sleep apnea * RT consultation * Continue home respiratory meds * IS * Duonebs as needed * O2 as needed to keep saturations >88% * Recommend outpatient sleep study after discharge HLD (hyperlipidemia) * No acute concerns Nicotine use * 21mg nicotine patch daily * Cessation counseling * Offer nicotine patches at discharge Chronic back pain Osteoarthritis Obesity * PT/OT * Consider survey worker consultation * Pain medications as ordered * Thrombocytopenia follow CBC; HIT doubtful; likely dilutional from IVF Code status: Full code PCP: Dr. Villanueva with the [facility] DVT prophylaxis: Heparin Subcutaneous Disposition: Patient admitted to the ICU for alcohol intoxication and withdrawal. Length of stay likely 3 to 4 days.-->Possible discharge 1-2 dayss
[2020-09-10] MEDS ORDERED: Furosemide 20 MG/2 ML VIAL IVPUSH ONE (13:49)
[2020-09-10] MEDS: Melatonin 3 MG Tab PO PRN (19:40)
[2020-09-11] MEDS: Heparin Sodium 5,000 Units/ML Vial SUBCUT SCH ×3 (02:32→18:27)
[2020-09-11] MEDS: Benzocaine/Cetylpyridinium/Menthol Lozenge MUCMEM PRN (02:32)
[2020-09-11] MEDS: LORazepam 1 MG Tab PO SCH ×7 (02:36→20:17)
[2020-09-11] MEDS: oxyCODONE 5 MG Tab PO PRN ×5 (02:36→20:10)
[2020-09-11] MEDS: HYDROmorphone 0.5 MG/0.5 ML Syringe IVPUSH PRN ×3 (03:45→17:47)
[2020-09-11] MEDS: DULoxetine 30 MG Cap PO SCH (05:06)
[2020-09-11] MEDS: Gabapentin 300 MG Cap PO SCH ×3 (05:06→16:44)
[2020-09-11] MEDS ORDERED: LORazepam 2 MG/ML SDV IVPUSH ONE (05:39)
[2020-09-11] MEDS: Thiamine 100 MG Tab PO SCH (08:00)
[2020-09-11] MEDS: Potassium Chloride 20 MEQ Tab.ER PO SCH (08:00)
[2020-09-11] MEDS: Nicotine 21 MG/24 Hr Patch TRDERM SCH (08:00)
[2020-09-11] MEDS: Diazepam 5 MG Tab PO SCH ×3 (08:00→21:30)
[2020-09-11] MEDS: Folic Acid 1 MG Tab PO SCH (08:00)
[2020-09-11] MEDS: Atenolol 25 MG Tab PO SCH (08:01)
[2020-09-11] MEDS: amLODIPine 5 MG Tab PO SCH (08:01)
[2020-09-11] MEDS: Albuterol/Ipratropium 3.0-0.5 MG/3 ML Neb Soln NEB PRN (08:11)
[2020-09-11] MEDS: FORMOTEROL INH SCH ×2 (08:11→20:14)
[2020-09-11] MEDS: BUDESONIDE INH SCH ×2 (08:11→20:14)
[2020-09-11] MEDS: TIOTROPIUM BROMIDE INH SCH (08:11)
[2020-09-11] MEDS ORDERED: Carboxymethylcellulose Sodium 1% Ophth Gel 15 ML Bottle EYEBOTH PRN (08:34)
--- NOTE | 2020-09-11 08:46 | PCM.PN ---
- General Info Date of Service: 09/11/20 Admission Dx/Problem (Free Text): Alcohol withdrawal Subjective Update: Patient with hallucinations overnight increased CIWA scores 20+ had to be given additional 4mg IV ativan this AM patient sleeping but arousable unable to provide ROS - Patient Data Vitals - Most Recent: Last Vital Signs Temp 97.5 F 09/11/20 02:57 Pulse 103 H 09/11/20 08:01 Resp 18 09/11/20 07:00 BP 140/107 H 09/11/20 08:01 Pulse Ox 92 L 09/11/20 08:12 Weight - Most Recent: 286 lb 6.4 oz I&O - Last 24 Hours: Intake & Output 09/10/20 09/11/20 09/11/20 22:59 06:59 14:59 Intake Total 800 Balance 800 Lab Results Last 24 Hours: Laboratory Results - last 24 hr 09/08/20 09/11/20 Range/Units 15:48 05:30 Sodium 139 (136-145) mEq/L Potassium 4.4 (3.5-5.1) mEq/L Chloride 101 (98-107) mEq/L Carbon Dioxide 29 (21-32) mEq/L Anion Gap 13.4 (5-15) BUN 5 L (7-18) mg/dL Creatinine 0.8 (0.7-1.3) mg/dL Est Cr Clr Drug Dosing 103.92 mL/min Estimated GFR (MDRD) > 60 (>60) mL/min BUN/Creatinine Ratio 6.3 L (14-18) Glucose 89 (70-99) mg/dL Calcium 8.3 L (8.5-10.1) mg/dL Magnesium 1.7 L (1.8-2.4) mg/dL Total Bilirubin 2.9 H (0.2-1.0) mg/dL AST 181 H (15-37) U/L ALT 66 H (16-63) U/L Alkaline Phosphatase 218 H (46-116) U/L Total Protein 7.6 (6.4-8.2) g/dl Albumin 2.4 L (3.4-5.0) g/dl Globulin 5.2 gm/dL Albumin/Globulin Ratio 0.5 L (1-2) Hepatitis A IgM Ab Negative (Negative) Hep Bs Antigen Negative (Negative) Hep B Core IgM Ab Negative (Negative) Hepatitis C Antibody <0.1 (0.0-0.9) s/co ratio Med Orders - Current: Current Medications Albuterol (Albuterol 0.083% 2.5 Mg/3 Ml Neb Soln) 2.5 mg NEB Q2H PRN PRN Reason: SOB/Wheezing Albuterol/Ipratropium (Albuterol/Ipratropium 3.0-0.5 Mg/3 Ml Neb Soln) 3 ml NEB Q6HRRT PRN PRN Reason: Wheezing Last Admin: 09/11/20 08:11 Dose: 3 ml Documented by: Amlodipine Besylate (Amlodipine 5 Mg Tab) 5 mg PO DAILY [facility] Last Admin: 09/11/20 08:01 Dose: 5 mg Documented by: Artificial Tears (Carboxymethylcellulose Sodium 1% Ophth Gel 15 Ml Bottle) 0 ml EYEBOTH ASDIRECTED PRN PRN Reason: Dry Eyes Last Admin: 09/11/20 08:40 Dose: 1 drop Documented by: Atenolol (Atenolol 25 Mg Tab) 25 mg PO DAILY [facility] Last Admin: 09/11/20 08:01 Dose: 25 mg Documented by: Benzocaine/Menthol (Benzocaine/Cetylpyridinium/Menthol Lozenge) 1 lozenge MUCMEM 6XDAY PRN PRN Reason: Throat irritation Last Admin: 09/11/20 02:32 Dose: 1 lozenge Documented by: Diazepam (Diazepam 5 Mg Tab) 5 mg PO TID [facility] Last Admin: 09/11/20 08:00 Dose: 5 mg Documented by: Duloxetine HCl (Duloxetine 30 Mg Cap) 120 mg PO ACBREAKFAST [facility] Last Admin: 09/11/20 05:06 Dose: 120 mg Documented by: Folic Acid (Folic Acid 1 Mg Tab) 1 mg PO DAILY [facility] Last Admin: 09/11/20 08:00 Dose: 1 mg Documented by: Gabapentin (Gabapentin 300 Mg Cap) 300 mg PO TID@0600,1200,1700 [facility] Last Admin: 09/11/20 05:06 Dose: 300 mg Documented by: Heparin Sodium (Porcine) (Heparin Sodium 5,000 Units/Ml Vial) 5,000 units SUBCUT Q8H [facility] Last Admin: 09/11/20 02:32 Dose: 5,000 units Documented by: Hydromorphone HCl (Hydromorphone 0.5 Mg/0.5 Ml Syringe) 0.5 mg IVPUSH Q2H PRN PRN Reason: Pain (severe 7-10) Last Admin: 09/11/20 03:45 Dose: 0.5 mg Documented by: Lorazepam (Lorazepam 1 Mg Tab) 0 mg PO ASDIRECTED [facility]; Protocol Last Admin: 09/11/20 05:34 Dose: 2 mg Documented by: Lorazepam (Lorazepam 2 Mg/Ml Sdv) 0 mg IVPUSH Q1H PRN; Protocol PRN Reason: Alcohol withdrawal Melatonin (Melatonin 3 Mg Tab) 6 mg PO BEDTIME PRN PRN Reason: Sleep Last Admin: 09/10/20 19:40 Dose: 6 mg Documented by: Miscellaneous Information (Remove Nicotine Patch) 1 ea TRDERM DAILY [facility] Last Admin: 09/11/20 08:19 Dose: Not Given Documented by: Nicotine (Nicotine 21 Mg/24 Hr Patch) 21 mg TRDERM DAILY [facility] Last Admin: 09/11/20 08:00 Dose: 21 mg Documented by: Oxycodone HCl (Oxycodone 5 Mg Tab) 5 mg PO Q4H PRN PRN Reason: Pain (moderate 4-6) Last Admin: 09/11/20 08:00 Dose: 5 mg Documented by: Budesonide/Formoterol 160/4.5 Mcg Inhaler Patient's Own Med 0 each INH BID [facility] Last Admin: 09/11/20 08:11 Dose: 2 each Documented by: Potassium Chloride (Potassium Chloride 20 Meq Tab.Er) 20 meq PO DAILY [facility] Last Admin: 09/11/20 08:00 Dose: 20 meq Documented by: Sodium Chloride (Sodium Chloride 0.9% 10 Ml Syringe) 10 ml FLUSH ASDIRECTED PRN PRN Reason: Keep Vein Open Last Admin: 09/08/20 16:42 Dose: 10 ml Documented by: Thiamine HCl (Thiamine 100 Mg Tab) 100 mg PO DAILY [facility] Last Admin: 09/11/20 08:00 Dose: 100 mg Documented by: Tiotropium [place] (Tiotropium [place] 4 Gm Inhalation [place] (2.5mcg/1 Dose) * Patient's Own Med *) 0 gm INH DAILY [facility] Last Admin: 09/11/20 08:11 Dose: 2 inhalation Documented by: Discontinued Medications Bupropion HCl (Bupropion 100 Mg Tab.Sr) 100 mg PO 0600,1200,1700 [facility] Folic Acid (Folic Acid 1 Mg Tab) 1 mg PO ONETIME ONE Stop: 09/08/20 16:19 Last Admin: 09/08/20 16:42 Dose: 1 mg Documented by: Furosemide (Furosemide 20 Mg/2 Ml Vial) 20 mg IVPUSH ONETIME ONE Stop: 09/09/20 12:04 Last Admin: 09/09/20 12:38 Dose: 20 mg Documented by: Furosemide (Furosemide 20 Mg/2 Ml Vial) 20 mg IVPUSH NOW ONE Stop: 09/10/20 13:50 Last Admin: 09/10/20 14:29 Dose: 20 mg Documented by: Sodium Chloride (Normal Saline) 1,000 mls @ 500 mls/hr IV ONETIME ONE Stop: 09/08/20 18:17 Last Admin: 09/08/20 16:41 Dose: 500 mls/hr Documented by: Lactated Ringer's (Ringers, Lactated) 1,000 mls @ 100 mls/hr IV ASDIRECTED [facility] Last Admin: 09/09/20 17:47 Dose: 100 mls/hr Documented by: Lorazepam (Lorazepam 2 Mg/Ml Sdv) 4 mg IVPUSH ONETIME ONE Stop: 09/11/20 05:40 Last Admin: 09/11/20 05:50 Dose: 4 mg Documented by: Magnesium Oxide (Magnesium Oxide 400 Mg Tab) 400 mg PO ONETIME ONE Stop: 09/09/20 09:11 Last Admin: 09/09/20 09:40 Dose: 400 mg Documented by: Multivitamins/Minerals/Vitamin C (Multivitamin Tab) 1 tab PO ONETIME ONE Stop: 09/08/20 18:29 Last Admin: 09/08/20 22:05 Dose: 1 tab Documented by: Ondansetron HCl (Ondansetron 4 Mg/2 Ml Sdv) 4 mg IVPUSH ONETIME ONE Stop: 09/08/20 16:20 Last Admin: 09/08/20 16:41 Dose: 4 mg Documented by: Potassium Chloride (Potassium Chloride 20 Meq Tab.Er) 20 meq PO ONETIME ONE Stop: 09/09/20 09:11 Last Admin: 09/09/20 09:40 Dose: 20 meq Documented by: Thiamine HCl (Thiamine 100 Mg Tab) 100 mg PO ONETIME ONE Stop: 09/08/20 16:19 Last Admin: 09/08/20 16:42 Dose: 100 mg Documented by: - Exam Physical Findings Comments:: Gen: no acute distress; sleeping HEENT: NCAT EOMI MMM CV: Tachycardic normal s1 s2 Lungs: CTAB Abd:Soft, nt, nd Neuro: Alert to self but not place; somnolent; exam limited by ativan MSK: age appropriate muscle mass Skin: warm, dry, no rash on face - Patient Data Lab Results Last 24 hrs: Laboratory Results - last 24 hr 09/08/20 09/11/20 Range/Units 15:48 05:30 Sodium 139 (136-145) mEq/L Potassium 4.4 (3.5-5.1) mEq/L Chloride 101 (98-107) mEq/L Carbon Dioxide 29 (21-32) mEq/L Anion Gap 13.4 (5-15) BUN 5 L (7-18) mg/dL Creatinine 0.8 (0.7-1.3) mg/dL Est Cr Clr Drug Dosing 103.92 mL/min Estimated GFR (MDRD) > 60 (>60) mL/min BUN/Creatinine Ratio 6.3 L (14-18) Glucose 89 (70-99) mg/dL Calcium 8.3 L (8.5-10.1) mg/dL Magnesium 1.7 L (1.8-2.4) mg/dL Total Bilirubin 2.9 H (0.2-1.0) mg/dL AST 181 H (15-37) U/L ALT 66 H (16-63) U/L Alkaline Phosphatase 218 H (46-116) U/L Total Protein 7.6 (6.4-8.2) g/dl Albumin 2.4 L (3.4-5.0) g/dl Globulin 5.2 gm/dL Albumin/Globulin Ratio 0.5 L (1-2) Hepatitis A IgM Ab Negative (Negative) Hep Bs Antigen Negative (Negative) Hep B Core IgM Ab Negative (Negative) Hepatitis C Antibody <0.1 (0.0-0.9) s/co ratio Result Diagrams: 09/09/20 04:57 09/11/20 05:30 Sepsis Event Note - Evaluation Sepsis Screening Result: No Definite Risk - Focused Exam Vital Signs: Vital Signs Temp Pulse Resp BP Pulse Ox Pulse Ox 09/11/20 08:12 92 L 09/11/20 08:01 103 H 140/107 H 09/11/20 07:00 18 92 L 09/11/20 06:00 22 H 09/11/20 05:12 85 L 09/11/20 04:55 92 L 09/11/20 04:50 86 L 09/11/20 04:03 92 L 09/11/20 03:00 88 L 09/11/20 02:57 97.5 F 20 94 L 09/11/20 02:01 94 L 09/11/20 01:03 128/81 09/11/20 01:01 84 L 09/11/20 01:00 85 L 09/11/20 00:00 91 L 09/10/20 23:00 92 L 09/10/20 22:00 92 L 09/10/20 21:00 86 L - Problem List Review Problem List Initiated/Reviewed/Updated: Yes - My Orders Last 24 Hours: My Active Orders 09/10/20 09:00 Remove Patch 1 ea TRDERM DAILY 09/11/20 07:42 LORazepam [Ativan] See Protocol IVPUSH Q1H PRN 09/11/20 07:46 Patient Status [ADT] Routine 09/11/20 07:50 One To One Therapy [BH] Stat 09/11/20 08:34 Carboxymethylcellulose Sodium [Refresh Liquigel 1%] See Dose Instructions EYEBOTH ASDIRECTED PRN 09/11/20 09:00 diazePAM [Valium.] 5 mg PO TID 09/11/20 10:00 CBC W/O DIFF,HEMOGRAM [HEME] Routine - Assessment Assessment:: Assessment - day of admission - 09/08/2020 Assessment: This is a 60M with PMHx of alcoholism, depression, COPD presenting w ith alcohol intoxication 1. Alcohol intoxication 2. Hx of Alcoholism 3. Transaminitis 4. Hx of HTn 5. Hx of COPD 6. Hx of HLD 7. Hx of depression and anxiety 8. Obesity Plan -IVF -[facility] alcohol withdrawal protocol -follow LFTS -check RUQ US -folate/thiamine -sw consult Code-full DVT ppx-heparin subq 09/09/2020 60-year-old male who presents to ED on 09/08/2020 testing assistance with alcohol intoxication and detox. He reports he has been drinking 20 beers a day since he was around 18 years old with a occasional episodes of sobriety that do not last very long. He reports his fiance 2 days ago. He reported to the [facility] for detox who sent him here. No history of alcohol withdrawal seizures. He follows with the [facility]. At the alcohol level on admission was 0.22. Labs been grossly stable today. WBC 7.61. Hemoglobin 13.6. Platelet 111,000 neutrophils are elevated 68.8%. Sodium is 138. Potassium 3.8. BUN is 4. Creatinine 0.7. GFR greater than 60. Glucose is 123. Calcium 8.0. Magnesium 1.9. Total bilirubin 2.3. AST is 244. ALT 77. Alkaline phosphatase 219. Albumin is 2.4. Hold medications were reconciled today. He does have a history of COPD and will continue his respiratory medications. I-S and Acapella are ordered. Respiratory consultation is ordered. Suspect a component of sleep apnea and would like patient to obtain sleep study after discharge. Has been requiring 3 L of oxygen while here. He is not normally on oxygen. He has been mildly tachycardic and mildly hypertensive. CIWA protocol is in place. CIWA score has been from 3-9 since admission. Denies any current hallucinations but states he is somewhat anxious and very tired. Case management and social work consulted. Abdominal ultrasound was obtained although was noted there was difficulty viewing midline structures due to bowel gas and body habitus. There is probable fatty infiltration and mild enlargement of the liver. Gallbladder and kidneys showed nothing acute. Hepatitis panel is ordered and pending. We will obtain fractionated bilirubin as well. Patient will remain hospitalized pending progression of withdrawal symptoms and disposition plan. - Plan Plan:: Alcohol abuse with intoxication Chronic alcoholism History of methamphetamine use Alcohol withdrawal syndrome; * 1 gm folic acid daily * 100mg daily thiamine * CIWA protocol * IV fluids as ordered-->Discontinue today * CM/SW consultation * Monitor electrolytes * Telemetry * scheduled Valium 5 mg TID 09/11 Depression Anxiety PTSD (post-traumatic stress disorder) * Home medications as ordered * Monitor need for psychiatry consultation Transaminitis Hyperbilirubinemia * IV fluids as ordered-Discontinue 09/10 * Direct/indirect bilirubin * Hepatitis panel * Abdominal ultrasound obtained - see report no findings of acute cholecystitis * Avoid hepatotoxic meds if able HTN (hypertension) * Home medications as ordered * No acute concerns * Monitor vital signs COPD (chronic obstructive pulmonary disease) Suspected sleep apnea * RT consultation * Continue home respiratory meds * IS * Duonebs as needed * O2 as needed to keep saturations >88% * Recommend outpatient sleep study after discharge HLD (hyperlipidemia) * No acute concerns Nicotine use * 21mg nicotine patch daily * Cessation counseling * Offer nicotine patches at discharge Chronic back pain Osteoarthritis Obesity * PT/OT * Consider medical office secretary consultation * Pain medications as ordered * Thrombocytopenia follow CBC; HIT doubtful; likely dilutional from IVF CBC pending Code status: Full code PCP: Dr. Villanueva with the [facility] DVT prophylaxis: Heparin Subcutaneous Disposition: Patient admitted to the ICU for alcohol intoxication and withdrawal. Length of stay likely 3 to 4 days.-->Possible discharge 2 days once resolution of withdrawal
[2020-09-11] MEDS ORDERED: Magnesium Sulfate/Water 2 GM in Premix Bag 1 BAG IV ONE (11:59)
[2020-09-11] MEDS: LORazepam 2 MG/ML SDV IVPUSH PRN ×2 (13:23→17:47)
[2020-09-11] MEDS ORDERED: Diazepam 5 MG Tab PO SCH (16:30)
[2020-09-11] MEDS: Melatonin 3 MG Tab PO PRN (20:38)
[2020-09-12] MEDS: Heparin Sodium 5,000 Units/ML Vial SUBCUT SCH ×3 (02:32→18:51)
[2020-09-12] MEDS: Diazepam 5 MG Tab PO SCH ×4 (04:10→22:14)
[2020-09-12] MEDS: HYDROmorphone 0.5 MG/0.5 ML Syringe IVPUSH PRN (04:12)
[2020-09-12] MEDS: Gabapentin 300 MG Cap PO SCH ×3 (06:33→16:13)
[2020-09-12] MEDS: DULoxetine 30 MG Cap PO SCH (06:34)
--- NOTE | 2020-09-12 07:57 | PCM.PN ---
- General Info Date of Service: 09/12/20 Admission Dx/Problem (Free Text): Alcohol withdrawal Functional Status: Reports: Pain Controlled, Tolerating Diet, Ambulating, Urinating, Incentive Spirometry, Other (Acapella ). Denies: New Symptoms - Review of Systems General: Reports: Weakness, Fatigue, Malaise. Denies: Fever, Chills HEENT: Reports: No Symptoms. Denies: Headaches, Sore Throat, Visual Changes Pulmonary: Reports: No Symptoms, Shortness of Breath. Denies: Pleuritic Chest Pain, Cough, Sputum, Wheezing Cardiovascular: Reports: No Symptoms, Dyspnea on Exertion. Denies: Chest Pain, Palpitations, Edema Gastrointestinal: Reports: No Symptoms. Denies: Abdominal Pain, Constipation, Diarrhea, Nausea, Vomiting Genitourinary: Reports: No Symptoms. Denies: Pain Musculoskeletal: Reports: No Symptoms Skin: Reports: No Symptoms. Denies: Cyanosis Neurological: Reports: Confusion, Difficulty Walking, Weakness, Gait Disturbance. Denies: Dizziness, Headache, Numbness, Pre-Existing Deficit, Seizure, Syncope, Tingling Psychiatric: Reports: No Symptoms. Denies: Depression, Anxiety, Agitation, Hallucinations - Patient Data Vitals - Most Recent: Last Vital Signs Temp 97.2 F 09/12/20 04:00 Pulse 103 H 09/11/20 08:01 Resp 17 09/12/20 06:00 BP 113/83 09/12/20 04:00 Pulse Ox 91 L 09/12/20 04:00 Weight - Most Recent: 285 lb 6.4 oz I&O - Last 24 Hours: Intake & Output 09/11/20 09/12/20 09/12/20 22:59 06:59 14:59 Intake Total 1040 240 Balance 1040 240 Lab Results Last 24 Hours: Laboratory Results - last 24 hr 09/11/20 09/12/20 09/12/20 Range/Units 05:30 05:23 05:23 WBC 8.84 8.36 (4.23-9.07) K/mm3 RBC 3.74 L 3.60 L (4.63-6.08) M/mm3 Hgb 14.1 13.7 (13.7-17.5) gm/dl Hct 40.7 39.1 L (40.1-51.0) % MCV 108.8 H 108.6 H (79.0-92.2) fl MCH 37.7 H 38.1 H (25.7-32.2) pg MCHC 34.6 35.0 (32.2-35.5) g/dl RDW Std Deviation 58.3 H 61.1 H (35.1-43.9) fL Plt Count 127 L 149 L (163-337) K/mm3 MPV 10.5 10.0 (9.4-12.3) fl Sodium 138 (136-145) mEq/L Potassium 4.4 (3.5-5.1) mEq/L Chloride 101 (98-107) mEq/L Carbon Dioxide 28 (21-32) mEq/L Anion Gap 13.4 (5-15) BUN 9 (7-18) mg/dL Creatinine 0.7 (0.7-1.3) mg/dL Est Cr Clr Drug Dosing 118.77 mL/min Estimated GFR (MDRD) > 60 (>60) mL/min BUN/Creatinine Ratio 12.9 L (14-18) Glucose 84 (70-99) mg/dL Calcium 8.1 L (8.5-10.1) mg/dL Magnesium 2.2 (1.8-2.4) mg/dL Total Bilirubin 2.6 H (0.2-1.0) mg/dL AST 159 H (15-37) U/L ALT 64 H (16-63) U/L Alkaline Phosphatase 205 H (46-116) U/L Total Protein 7.4 (6.4-8.2) g/dl Albumin 2.3 L (3.4-5.0) g/dl Globulin 5.1 gm/dL Albumin/Globulin Ratio 0.5 L (1-2) Med Orders - Current: Current Medications Albuterol (Albuterol 0.083% 2.5 Mg/3 Ml Neb Soln) 2.5 mg NEB Q2H PRN PRN Reason: SOB/Wheezing Last Admin: 09/11/20 12:06 Dose: 2.5 mg Documented by: Albuterol/Ipratropium (Albuterol/Ipratropium 3.0-0.5 Mg/3 Ml Neb Soln) 3 ml NEB Q6HRRT PRN PRN Reason: Wheezing Last Admin: 09/11/20 08:11 Dose: 3 ml Documented by: Amlodipine Besylate (Amlodipine 5 Mg Tab) 5 mg PO DAILY [facility] Last Admin: 09/11/20 08:01 Dose: 5 mg Documented by: Artificial Tears (Carboxymethylcellulose Sodium 1% Ophth Gel 15 Ml Bottle) 0 ml EYEBOTH ASDIRECTED PRN PRN Reason: Dry Eyes Last Admin: 09/11/20 08:40 Dose: 1 drop Documented by: Atenolol (Atenolol 25 Mg Tab) 25 mg PO DAILY [facility] Last Admin: 09/11/20 08:01 Dose: 25 mg Documented by: Benzocaine/Menthol (Benzocaine/Cetylpyridinium/Menthol Lozenge) 1 lozenge MUCMEM 6XDAY PRN PRN Reason: Throat irritation Last Admin: 09/11/20 02:32 Dose: 1 lozenge Documented by: Diazepam (Diazepam 5 Mg Tab) 7.5 mg PO Q6H [facility] Last Admin: 09/12/20 04:10 Dose: 7.5 mg Documented by: Duloxetine HCl (Duloxetine 30 Mg Cap) 120 mg PO ACBREAKFAST [facility] Last Admin: 09/12/20 06:34 Dose: 120 mg Documented by: Folic Acid (Folic Acid 1 Mg Tab) 1 mg PO DAILY [facility] Last Admin: 09/11/20 08:00 Dose: 1 mg Documented by: Gabapentin (Gabapentin 300 Mg Cap) 300 mg PO TID@0600,1200,1700 [facility] Last Admin: 09/12/20 06:33 Dose: 300 mg Documented by: Heparin Sodium (Porcine) (Heparin Sodium 5,000 Units/Ml Vial) 5,000 units SUBCUT Q8H [facility] Last Admin: 09/12/20 02:32 Dose: 5,000 units Documented by: Hydromorphone HCl (Hydromorphone 0.5 Mg/0.5 Ml Syringe) 0.5 mg IVPUSH Q2H PRN PRN Reason: Pain (severe 7-10) Last Admin: 09/12/20 04:12 Dose: 0.5 mg Documented by: Lorazepam (Lorazepam 1 Mg Tab) 0 mg PO ASDIRECTED LEONARDA; Protocol Last Admin: 09/11/20 20:17 Dose: 1 mg Documented by: Lorazepam (Lorazepam 2 Mg/Ml Sdv) 0 mg IVPUSH Q1H PRN; Protocol PRN Reason: Alcohol withdrawal Last Admin: 09/11/20 17:47 Dose: 2 mg Documented by: Melatonin (Melatonin 3 Mg Tab) 6 mg PO BEDTIME PRN PRN Reason: Sleep Last Admin: 09/11/20 20:38 Dose: 6 mg Documented by: Miscellaneous Information (Remove Nicotine Patch) 1 ea TRDERM DAILY [facility] Last Admin: 09/11/20 08:19 Dose: Not Given Documented by: Nicotine (Nicotine 21 Mg/24 Hr Patch) 21 mg TRDERM DAILY [facility] Last Admin: 09/11/20 08:00 Dose: 21 mg Documented by: Oxycodone HCl (Oxycodone 5 Mg Tab) 5 - 10 mg PO Q4H PRN PRN Reason: Pain Last Admin: 09/11/20 20:10 Dose: 10 mg Documented by: Budesonide/Formoterol 160/4.5 Mcg Inhaler Patient's Own Med 0 each INH BID [facility] Last Admin: 09/11/20 20:14 Dose: 2 each Documented by: Potassium Chloride (Potassium Chloride 20 Meq Tab.Er) 20 meq PO DAILY [facility] Last Admin: 09/11/20 08:00 Dose: 20 meq Documented by: Sodium Chloride (Sodium Chloride 0.9% 10 Ml Syringe) 10 ml FLUSH ASDIRECTED PRN PRN Reason: Keep Vein Open Last Admin: 09/08/20 16:42 Dose: 10 ml Documented by: Thiamine HCl (Thiamine 100 Mg Tab) 100 mg PO DAILY [facility] Last Admin: 09/11/20 08:00 Dose: 100 mg Documented by: Tiotropium [place] (Tiotropium [place] 4 Gm Inhalation [place] (2.5mcg/1 Dose) * Patient's Own Med *) 0 gm INH DAILY [facility] Last Admin: 09/11/20 08:11 Dose: 2 inhalation Documented by: Discontinued Medications Bupropion HCl (Bupropion 100 Mg Tab.Sr) 100 mg PO 0600,1200,1700 [facility] Diazepam (Diazepam 5 Mg Tab) 5 mg PO TID [facility] Last Admin: 09/11/20 14:00 Dose: 5 mg Documented by: Diazepam (Diazepam 5 Mg Tab) 5 mg PO Q6H [facility] Last Admin: 09/11/20 16:44 Dose: 5 mg Documented by: Folic Acid (Folic Acid 1 Mg Tab) 1 mg PO ONETIME ONE Stop: 09/08/20 16:19 Last Admin: 09/08/20 16:42 Dose: 1 mg Documented by: Furosemide (Furosemide 20 Mg/2 Ml Vial) 20 mg IVPUSH ONETIME ONE Stop: 09/09/20 12:04 Last Admin: 09/09/20 12:38 Dose: 20 mg Documented by: Furosemide (Furosemide 20 Mg/2 Ml Vial) 20 mg IVPUSH NOW ONE Stop: 09/10/20 13:50 Last Admin: 09/10/20 14:29 Dose: 20 mg Documented by: Sodium Chloride (Normal Saline) 1,000 mls @ 500 mls/hr IV ONETIME ONE Stop: 09/08/20 18:17 Last Admin: 09/08/20 16:41 Dose: 500 mls/hr Documented by: Lactated Ringer's (Ringers, Lactated) 1,000 mls @ 100 mls/hr IV ASDIRECTED LEONARDA Last Admin: 09/09/20 17:47 Dose: 100 mls/hr Documented by: Magnesium Sulfate 2 gm/ Premix 50 mls @ 25 mls/hr IV ONETIME ONE Stop: 09/11/20 13:58 Last Admin: 09/11/20 12:20 Dose: 25 mls/hr Documented by: Lorazepam (Lorazepam 2 Mg/Ml Sdv) 4 mg IVPUSH ONETIME ONE Stop: 09/11/20 05:40 Last Admin: 09/11/20 05:50 Dose: 4 mg Documented by: Magnesium Oxide (Magnesium Oxide 400 Mg Tab) 400 mg PO ONETIME ONE Stop: 09/09/20 09:11 Last Admin: 09/09/20 09:40 Dose: 400 mg Documented by: Multivitamins/Minerals/Vitamin C (Multivitamin Tab) 1 tab PO ONETIME ONE Stop: 09/08/20 18:29 Last Admin: 09/08/20 22:05 Dose: 1 tab Documented by: Ondansetron HCl (Ondansetron 4 Mg/2 Ml Sdv) 4 mg IVPUSH ONETIME ONE Stop: 09/08/20 16:20 Last Admin: 09/08/20 16:41 Dose: 4 mg Documented by: Oxycodone HCl (Oxycodone 5 Mg Tab) 5 mg PO Q4H PRN PRN Reason: Pain (moderate 4-6) Last Admin: 09/11/20 16:44 Dose: 5 mg Documented by: Potassium Chloride (Potassium Chloride 20 Meq Tab.Er) 20 meq PO ONETIME ONE Stop: 09/09/20 09:11 Last Admin: 09/09/20 09:40 Dose: 20 meq Documented by: Thiamine HCl (Thiamine 100 Mg Tab) 100 mg PO ONETIME ONE Stop: 09/08/20 16:19 Last Admin: 09/08/20 16:42 Dose: 100 mg Documented by: - Exam Quality Assessment: Supplemental Oxygen (4L), DVT Prophylaxis. No: Urine Catheter General: Cooperative, No Acute Distress, Sedated HEENT: Pupils Equal, Pupils Reactive, Mucous Membr. Moist/[place] Neck: Supple, Trachea Midline Lungs: Normal Respiratory Effort, Decreased Breath Sounds Cardiovascular: Regular Rate, Regular Rhythm GI/Abdominal Exam: Normal Bowel Sounds, Soft, Non-Tender, No Distention (Male) Exam: Deferred Extremities: Normal Inspection, Normal Range of Motion, Non-Tender, No Pedal Edema, Normal Capillary Refill Peripheral Pulses: 2+: Radial (L), Radial (R), Dorsalis Pedis (L), Dorsalis Pedis (R) Skin: Warm, Dry, Intact Neurological: No New Focal Deficit Psy/Mental Status: Withdrawal Symptoms. No: Labile Mood, Agitated, Hallucinations - Patient Data Lab Results Last 24 hrs: Laboratory Results - last 24 hr 09/11/20 09/12/20 09/12/20 Range/Units 05:30 05:23 05:23 WBC 8.84 8.36 (4.23-9.07) K/mm3 RBC 3.74 L 3.60 L (4.63-6.08) M/mm3 Hgb 14.1 13.7 (13.7-17.5) gm/dl Hct 40.7 39.1 L (40.1-51.0) % MCV 108.8 H 108.6 H (79.0-92.2) fl MCH 37.7 H 38.1 H (25.7-32.2) pg MCHC 34.6 35.0 (32.2-35.5) g/dl RDW Std Deviation 58.3 H 61.1 H (35.1-43.9) fL Plt Count 127 L 149 L (163-337) K/mm3 MPV 10.5 10.0 (9.4-12.3) fl Sodium 138 (136-145) mEq/L Potassium 4.4 (3.5-5.1) mEq/L Chloride 101 (98-107) mEq/L Carbon Dioxide 28 (21-32) mEq/L Anion Gap 13.4 (5-15) BUN 9 (7-18) mg/dL Creatinine 0.7 (0.7-1.3) mg/dL Est Cr Clr Drug Dosing 118.77 mL/min Estimated GFR (MDRD) > 60 (>60) mL/min BUN/Creatinine Ratio 12.9 L (14-18) Glucose 84 (70-99) mg/dL Calcium 8.1 L (8.5-10.1) mg/dL Magnesium 2.2 (1.8-2.4) mg/dL Total Bilirubin 2.6 H (0.2-1.0) mg/dL AST 159 H (15-37) U/L ALT 64 H (16-63) U/L Alkaline Phosphatase 205 H (46-116) U/L Total Protein 7.4 (6.4-8.2) g/dl Albumin 2.3 L (3.4-5.0) g/dl Globulin 5.1 gm/dL Albumin/Globulin Ratio 0.5 L (1-2) Result Diagrams: 09/12/20 05:23 09/12/20 05:23 Sepsis Event Note - Evaluation Sepsis Screening Result: No Definite Risk - Focused Exam Vital Signs: Vital Signs Temp Resp BP Pulse Ox Pulse Ox 09/12/20 06:00 17 09/12/20 04:00 97.2 F 18 113/83 91 L 09/12/20 02:00 16 91 L 09/12/20 01:00 15 91 L 09/12/20 00:00 97.4 F 18 129/72 91 L 09/11/20 22:00 18 91 L 09/11/20 20:15 92 L 09/11/20 20:00 97.2 F 19 140/96 H 91 L - Problem List & Annotations (1) Transaminitis SNOMED Code(s): 740665833, 600688717 Code(s): R74.01 - ELEVATION OF LEVELS OF LIVER TRANSAMINASE LEVELS Status: Acute Priority: High Current Visit: Yes (2) HTN (hypertension) SNOMED Code(s): 10286183 Code(s): I10 - ESSENTIAL (PRIMARY) HYPERTENSION Status: Chronic Priority: Medium Current Visit: No Qualifiers: Hypertension type: unspecified Qualified Code(s): I10 - Essential (primary) hypertension (3) COPD (chronic obstructive pulmonary disease) SNOMED Code(s): 85375444 Code(s): J44.9 - CHRONIC OBSTRUCTIVE PULMONARY DISEASE, UNSPECIFIED Status: Chronic Priority: Medium Current Visit: Yes Qualifiers: COPD type: unspecified COPD Qualified Code(s): J44.9 - Chronic obstructive pulmonary disease, unspecified (4) HLD (hyperlipidemia) SNOMED Code(s): 89514872 Code(s): E78.5 - HYPERLIPIDEMIA, UNSPECIFIED Status: Chronic Priority: Low Current Visit: No Qualifiers: Hyperlipidemia type: unspecified Qualified Code(s): E78.5 - Hyperlipidemia, unspecified (5) History of methamphetamine use SNOMED Code(s): 206433684 Code(s): Z87.898 - PERSONAL HISTORY OF OTHER SPECIFIED CONDITIONS Status: Chronic Priority: Medium Current Visit: Yes (6) Depression SNOMED Code(s): 34402269 Code(s): F32.9 - MAJOR DEPRESSIVE DISORDER, SINGLE EPISODE, UNSPECIFIED Status: Chronic Priority: Medium Current Visit: Yes Qualifiers: Depression Type: other depression Qualified Code(s): F32.89 - Other specified depressive episodes (7) Anxiety SNOMED Code(s): 44108505 Code(s): F41.9 - ANXIETY DISORDER, UNSPECIFIED Status: Chronic Priority: Medium Current Visit: Yes (8) Obesity SNOMED Code(s): 816654877, 652139509 Code(s): E66.9 - OBESITY, UNSPECIFIED Status: Chronic Priority: Medium Current Visit: Yes Qualifiers: Obesity type: unspecified obesity type Obesity classification: adult class 3 (BMI >= 40) Serious obesity comorbidity presence: unspecified whether serious comorbidity present Body mass index: BMI 40.0-44.9 Qualified Code(s): E66.01 - Morbid (severe) obesity due to excess calories; Z68.41 - Body mass index [BMI]40.0-44.9, adult (9) PTSD (post-traumatic stress disorder) SNOMED Code(s): 65046554 Code(s): F43.10 - POST-TRAUMATIC STRESS DISORDER, UNSPECIFIED Status: Chronic Priority: Medium Current Visit: No (10) Nicotine use SNOMED Code(s): 117195571 Code(s): Z72.0 - TOBACCO USE Status: Chronic Priority: Medium Current Visit: Yes (11) Chronic back pain SNOMED Code(s): 466332189 Code(s): M54.9 - DORSALGIA, UNSPECIFIED; G89.29 - OTHER CHRONIC PAIN Status: Chronic Priority: Low Current Visit: Yes Qualifiers: Back pain location: back pain in unspecified location Back pain laterality: unspecified Qualified Code(s): M54.9 - Dorsalgia, unspecified; G89.29 - Other chronic pain (12) Osteoarthritis SNOMED Code(s): 538214626 Code(s): M19.90 - UNSPECIFIED OSTEOARTHRITIS, UNSPECIFIED SITE Status: Chronic Priority: Low Current Visit: No Qualifiers: Osteoarthritis location: unspecified site Osteoarthritis type: unspecified Qualified Code(s): M19.90 - Unspecified osteoarthritis, unspecified site (13) Alcohol abuse with intoxication SNOMED Code(s): 42674302 Code(s): F10.129 - ALCOHOL ABUSE WITH INTOXICATION, UNSPECIFIED Status: Acute Current Visit: Yes (14) Chronic alcoholism SNOMED Code(s): 8667156 Code(s): F10.20 - ALCOHOL DEPENDENCE, UNCOMPLICATED Status: Chronic Priority: High Current Visit: Yes (15) Hyperbilirubinemia SNOMED Code(s): 10031492 Code(s): E80.6 - OTHER DISORDERS OF BILIRUBIN METABOLISM Status: Acute Priority: Medium Current Visit: Yes (16) Sleep apnea SNOMED Code(s): 14548951 Code(s): G47.30 - SLEEP APNEA, UNSPECIFIED Status: Suspected Priority: Medium Current Visit: Yes Qualifiers: Sleep apnea type: unspecified type Qualified Code(s): G47.30 - Sleep apnea, unspecified (17) Hypomagnesemia SNOMED Code(s): 911260847 Code(s): E83.42 - HYPOMAGNESEMIA Status: Resolved Priority: High Current Visit: Yes (18) Thrombocytopenia SNOMED Code(s): 477908900 Code(s): D69.6 - THROMBOCYTOPENIA, UNSPECIFIED Status: Acute Priority: Medium Current Visit: Yes (19) Hypoxia SNOMED Code(s): 565721312 Code(s): R09.02 - HYPOXEMIA Status: Acute Priority: High Current Visit: Yes - Problem List Review Problem List Initiated/Reviewed/Updated: Yes - My Orders Last 24 Hours: My Active Orders 09/13/20 05:11 CMP [COMPREHENSIVE METABOLIC PN,CMP] [CHEM] AM MAGNESIUM [CHEM] AM - Assessment Assessment:: Assessment - day of admission - 09/08/2020 Assessment: This is a 60M with PMHx of alcoholism, depression, COPD presenting with alcohol intoxication 1. Alcohol intoxication 2. Hx of Alcoholism 3. Transaminitis 4. Hx of HTn 5. Hx of COPD 6. Hx of HLD 7. Hx of depression and anxiety 8. Obesity Plan -IVF -CIWA alcohol withdrawal protocol -follow LFTS -check RUQ US -folate/thiamine - consult Code-full DVT ppx-heparin subq 09/09/2020 60-year-old male who presents to ED on 09/08/2020 testing assistance with alcohol intoxication and detox. He reports he has been drinking 20 beers a day since he was around 18 years old with a occasional episodes of sobriety that do not last very long. He reports his fiance 2 days ago. He reported to the [facility] for detox who sent him here. No history of alcohol withdrawal seizures. He follows with the [facility]. At the alcohol level on admission was 0.22. Labs been grossly stable today. WBC 7.61. Hemoglobin 13.6. Platelet 111,000 neutrophils are elevated 68.8%. Sodium is 138. Potassium 3.8. BUN is 4. Creatinine 0.7. GFR greater than 60. Glucose is 123. Calcium 8.0. Magnesium 1.9. Total bilirubin 2.3. AST is 244. ALT 77. Alkaline phosphatase 219. Albumin is 2.4. Hold medications were reconciled today. He does have a history of COPD and will continue his respiratory medications. I-S and Acapella are ordered. Respiratory consultation is ordered. Suspect a component of sleep apnea and would like patient to obtain sleep study after discharge. Has been requiring 3 L of oxygen while here. He is not normally on oxygen. He has been mildly tachycardic and mildly hypertensive. CIWA protocol is in place. CIWA score has been from 3-9 since admission. Denies any current hallucinations but states he is somewhat anxious and very tired. Case management and social work consulted. Abdominal ultrasound was obtained although was noted there was difficulty viewing midline structures due to bowel gas and body habitus. There is probable fatty infiltration and mild enlargement of the liver. Gallbladder and kidneys showed nothing acute. Hepatitis panel is ordered and pending. We will obtain fractionated bilirubin as well. Patient will remain hospitalized pending progression of withdrawal symptoms and disposition plan. 09/10/2020 Patient endorses night sweats and tremors endorses anxiety denies chest pain SOB at baseline tolerating diet patient SOB and hypoxic; hx of COPD; will give 1 time dose of IV lasix 09/11/2020 Patient with hallucinations overnight increased CIWA scores 20+ had to be given additional 4mg IV ativan this AM patient sleeping but arousable unable to provide ROS 09/12/2020 60-year-old male admitted to our ICU for detox. Over the weekend patient did start to detox fairly hard with elevated CIWA score. We have continued Ativan per CIWA protocol patient was also started on 7.5 mg every 6 hours scheduled Valium. He remains somewhat sedated but does feel pretty good. No hallucinations or other withdrawal symptoms. He remains somewhat weak and continues to have difficulty with ambulation. This is likely exacerbated by Ativan and Valium for detox. PT and OT are ordered. He is up to 4 L of oxygen which again is likely worsened by Ativan and Valium administration. Patient does have baseline respiratory issues including COPD and suspected sleep apnea. CIWA score for past 24 hours has been between 9 and 2. Labs today show WBC of 8.36. Hemoglobin 13.7. Hematocrit 39.1. Platelet 149,000. Sodium 138. Potassium 4.4. Chloride 101. Carbon dioxide 28. Anion gap 13.4. BUN 9. Creatinine 0.7. GFR greater than 60. Glucose 84. Calcium 8.1. Magnesium 2.2. Total bilirubin 0.6. AST 159, ALT 64, alkaline phosphatase 205. Protein 7.4. Albumin 2.3. Hepatitis panel obtained on admission is grossly negative. We will continue current treatment plan. Hopeful for discharge in next 24 to 48 hours to [facility] for continued alcohol abuse treatment. - Plan Plan:: Alcohol abuse with intoxication Chronic alcoholism History of methamphetamine use Alcohol withdrawal syndrome * 1 gm folic acid daily * 100mg daily thiamine * CIWA protocol * IV fluids as ordered-->Discontinued * CM/SW consultation * Monitor electrolytes * Telemetry * Continue scheduled Valium 7.5 mg Q6H Depression Anxiety PTSD (post-traumatic stress disorder) * Home medications as ordered * Monitor need for psychiatry consultation Transaminitis, improving Hyperbilirubinemia, improving Thrombocytopenia, improving * IV fluids as ordered-Discontinued 09/10 * Hepatitis panel - Negative * Abdominal ultrasound obtained - see report no findings of acute cholecystitis * Avoid hepatotoxic meds if able * Monitor labs HTN (hypertension) * Home medications as ordered * No acute concerns * Monitor vital signs COPD (chronic obstructive pulmonary disease) Suspected sleep apnea Hypoxia * RT consultation * Continue home respiratory meds * IS * Duonebs as needed * O2 as needed to keep saturations >88% * Recommend outpatient sleep study after discharge HLD (hyperlipidemia) * No acute concerns Nicotine use * 21mg nicotine patch daily * Cessation counseling * Offer nicotine patches at discharge Chronic back pain Osteoarthritis Obesity * PT/OT * Consider singing teacher consultation * Pain medications as ordered Hypomagnesemia * Resolved after supplementation * Monitor labs Code status: Full code PCP: Dr. Villanueva with the [facility] DVT prophylaxis: Heparin Subcutaneous Disposition: Patient admitted to the ICU for alcohol intoxication and withdrawal. Length of stay likely 3 to 4 days.-->Possible discharge 2 days once resolution of withdrawal
[2020-09-12] MEDS: Potassium Chloride 20 MEQ Tab.ER PO SCH (08:23)
[2020-09-12] MEDS: Atenolol 25 MG Tab PO SCH (08:24)
[2020-09-12] MEDS: Folic Acid 1 MG Tab PO SCH (08:27)
[2020-09-12] MEDS: Thiamine 100 MG Tab PO SCH (08:27)
[2020-09-12] MEDS: amLODIPine 5 MG Tab PO SCH (08:27)
[2020-09-12] MEDS: Nicotine 21 MG/24 Hr Patch TRDERM SCH (08:28)
[2020-09-12] MEDS: oxyCODONE 5 MG Tab PO PRN ×2 (08:33→20:42)
[2020-09-12] MEDS: FORMOTEROL INH SCH ×2 (10:06→20:43)
[2020-09-12] MEDS: BUDESONIDE INH SCH ×2 (10:06→20:43)
[2020-09-12] MEDS: TIOTROPIUM BROMIDE INH SCH (10:06)
[2020-09-13] MEDS: Heparin Sodium 5,000 Units/ML Vial SUBCUT SCH ×3 (02:33→17:46)
[2020-09-13] MEDS: Diazepam 5 MG Tab PO SCH ×3 (04:22→20:39)
[2020-09-13] MEDS: DULoxetine 30 MG Cap PO SCH (06:16)
[2020-09-13] MEDS: Gabapentin 300 MG Cap PO SCH ×3 (06:16→16:38)
[2020-09-13] MEDS: BUDESONIDE INH SCH ×2 (08:44→20:03)
[2020-09-13] MEDS: TIOTROPIUM BROMIDE INH SCH (08:44)
[2020-09-13] MEDS: FORMOTEROL INH SCH ×2 (08:44→20:03)
[2020-09-13] MEDS: Thiamine 100 MG Tab PO SCH (08:57)
[2020-09-13] MEDS: Folic Acid 1 MG Tab PO SCH (08:57)
[2020-09-13] MEDS: Potassium Chloride 20 MEQ Tab.ER PO SCH (08:57)
[2020-09-13] MEDS: Atenolol 25 MG Tab PO SCH (08:57)
[2020-09-13] MEDS: Nicotine 21 MG/24 Hr Patch TRDERM SCH (08:58)
[2020-09-13] MEDS: amLODIPine 5 MG Tab PO SCH (08:58)
--- NOTE | 2020-09-13 09:14 | PCM.PN ---
- General Info Date of Service: 09/13/20 Admission Dx/Problem (Free Text): Alcohol withdrawal Subjective Update: Misha reports feeling better today than yesterday. He states he still feels slightly groggy. He denies any nausea, vomiting or diarrhea. He denies any hallucinations. Continues on oxygen per nasal cannula. He does have an incentive spirometer and Acapella at the bedside. He did complain of his feet knees and hips hurting him. He was requesting narcotic pain medication to treat this however he is currently receiving Valium and as needed Ativan I think it would be best to hold off on any narcotics as they will have a culminating effect. I have notified nursing staff to give him Tylenol 650 mg. Functional Status: Reports: Pain Controlled, Tolerating Diet, Ambulating, Urinating, Incentive Spirometry - Review of Systems General: Reports: No Symptoms HEENT: Reports: No Symptoms Pulmonary: Reports: Shortness of Breath (Exertion; patient has a significant smoking history of a pack and a half a day x40 years.), Wheezing Cardiovascular: Reports: No Symptoms Gastrointestinal: Reports: No Symptoms. Denies: Diarrhea, Nausea, Vomiting Genitourinary: Reports: No Symptoms Musculoskeletal: Reports: No Symptoms Skin: Reports: No Symptoms Neurological: Reports: No Symptoms Psychiatric: Reports: No Symptoms - Patient Data Vitals - Most Recent: Last Vital Signs Temp 97.3 F 09/13/20 04:20 Pulse 96 09/13/20 04:20 Resp 20 09/13/20 04:20 BP 108/93 H 09/13/20 04:20 Pulse Ox 96 09/13/20 08:48 Weight - Most Recent: 284 lb 9.6 oz I&O - Last 24 Hours: Intake & Output 09/12/20 09/13/20 09/13/20 22:59 06:59 14:59 Intake Total 750 300 Output Total 650 Balance 100 300 Lab Results Last 24 Hours: Laboratory Results - last 24 hr 09/13/20 09/13/20 Range/Units 05:20 05:20 WBC 9.03 (4.23-9.07) K/mm3 RBC 3.70 L (4.63-6.08) M/mm3 Hgb 13.7 (13.7-17.5) gm/dl Hct 41.7 (40.1-51.0) % MCV 112.7 H D (79.0-92.2) fl MCH 37.0 H (25.7-32.2) pg MCHC 32.9 (32.2-35.5) g/dl RDW Std Deviation 63.7 H (35.1-43.9) fL Plt Count 154 L (163-337) K/mm3 MPV 10.2 (9.4-12.3) fl Sodium 139 (136-145) mEq/L Potassium 4.2 (3.5-5.1) mEq/L Chloride 100 (98-107) mEq/L Carbon Dioxide 30 (21-32) mEq/L Anion Gap 13.2 (5-15) BUN 10 (7-18) mg/dL Creatinine 0.7 (0.7-1.3) mg/dL Est Cr Clr Drug Dosing 118.77 mL/min Estimated GFR (MDRD) > 60 (>60) mL/min BUN/Creatinine Ratio 14.3 (14-18) Glucose 85 (70-99) mg/dL Calcium 8.2 L (8.5-10.1) mg/dL Magnesium 2.2 (1.8-2.4) mg/dL Total Bilirubin 2.4 H (0.2-1.0) mg/dL AST 135 H (15-37) U/L ALT 59 (16-63) U/L Alkaline Phosphatase 194 H (46-116) U/L Total Protein 7.6 (6.4-8.2) g/dl Albumin 2.4 L (3.4-5.0) g/dl Globulin 5.2 gm/dL Albumin/Globulin Ratio 0.5 L (1-2) Med Orders - Current: Current Medications Albuterol (Albuterol 0.083% 2.5 Mg/3 Ml Neb Soln) 2.5 mg NEB Q2H PRN PRN Reason: SOB/Wheezing Last Admin: 09/11/20 12:06 Dose: 2.5 mg Documented by: Albuterol/Ipratropium (Albuterol/Ipratropium 3.0-0.5 Mg/3 Ml Neb Soln) 3 ml NEB Q6HRRT PRN PRN Reason: Wheezing Last Admin: 09/11/20 08:11 Dose: 3 ml Documented by: Amlodipine Besylate (Amlodipine 5 Mg Tab) 5 mg PO DAILY [facility] Last Admin: 09/12/20 08:27 Dose: 5 mg Documented by: Artificial Tears (Carboxymethylcellulose Sodium 1% Ophth Gel 15 Ml Bottle) 0 ml EYEBOTH ASDIRECTED PRN PRN Reason: Dry Eyes Last Admin: 09/11/20 08:40 Dose: 1 drop Documented by: Atenolol (Atenolol 25 Mg Tab) 25 mg PO DAILY [facility] Last Admin: 09/12/20 08:24 Dose: 25 mg Documented by: Benzocaine/Menthol (Benzocaine/Cetylpyridinium/Menthol Lozenge) 1 lozenge MUCMEM 6XDAY PRN PRN Reason: Throat irritation Last Admin: 09/11/20 02:32 Dose: 1 lozenge Documented by: Diazepam (Diazepam 5 Mg Tab) 7.5 mg PO Q6H [facility] Last Admin: 09/13/20 04:22 Dose: 7.5 mg Documented by: Duloxetine HCl (Duloxetine 30 Mg Cap) 120 mg PO ACBREAKFAST [facility] Last Admin: 09/13/20 06:16 Dose: 120 mg Documented by: Folic Acid (Folic Acid 1 Mg Tab) 1 mg PO DAILY [facility] Last Admin: 09/12/20 08:27 Dose: 1 mg Documented by: Gabapentin (Gabapentin 300 Mg Cap) 300 mg PO TID@0600,1200,1700 [facility] Last Admin: 09/13/20 06:16 Dose: 300 mg Documented by: Heparin Sodium (Porcine) (Heparin Sodium 5,000 Units/Ml Vial) 5,000 units SUBCUT Q8H [facility] Last Admin: 09/13/20 02:33 Dose: 5,000 units Documented by: Hydromorphone HCl (Hydromorphone 0.5 Mg/0.5 Ml Syringe) 0.5 mg IVPUSH Q2H PRN PRN Reason: Pain (severe 7-10) Last Admin: 09/12/20 04:12 Dose: 0.5 mg Documented by: Lorazepam (Lorazepam 1 Mg Tab) 0 mg PO ASDIRECTED [facility]; Protocol Last Admin: 09/11/20 20:17 Dose: 1 mg Documented by: Lorazepam (Lorazepam 2 Mg/Ml Sdv) 0 mg IVPUSH Q1H PRN; Protocol PRN Reason: Alcohol withdrawal Last Admin: 09/11/20 17:47 Dose: 2 mg Documented by: Melatonin (Melatonin 3 Mg Tab) 6 mg PO BEDTIME PRN PRN Reason: Sleep Last Admin: 09/11/20 20:38 Dose: 6 mg Documented by: Miscellaneous Information (Remove Nicotine Patch) 1 ea TRDERM DAILY [facility] Last Admin: 09/12/20 08:45 Dose: 1 ea Documented by: Nicotine (Nicotine 21 Mg/24 Hr Patch) 21 mg TRDERM DAILY [facility] Last Admin: 09/12/20 08:28 Dose: 21 mg Documented by: Oxycodone HCl (Oxycodone 5 Mg Tab) 5 - 10 mg PO Q4H PRN PRN Reason: Pain Last Admin: 09/12/20 20:42 Dose: 10 mg Documented by: Budesonide/Formoterol 160/4.5 Mcg Inhaler Patient's Own Med 0 each INH BID [facility] Last Admin: 09/13/20 08:44 Dose: 2 each Documented by: Potassium Chloride (Potassium Chloride 20 Meq Tab.Er) 20 meq PO DAILY [facility] Last Admin: 09/12/20 08:23 Dose: 20 meq Documented by: Sodium Chloride (Sodium Chloride 0.9% 10 Ml Syringe) 10 ml FLUSH ASDIRECTED PRN PRN Reason: Keep Vein Open Last Admin: 09/08/20 16:42 Dose: 10 ml Documented by: Thiamine HCl (Thiamine 100 Mg Tab) 100 mg PO DAILY [facility] Last Admin: 09/12/20 08:27 Dose: 100 mg Documented by: Tiotropium [place] (Tiotropium [place] 4 Gm Inhalation [place] (2.5mcg/1 Dose) * Patient's Own Med *) 0 gm INH DAILY [facility] Last Admin: 09/13/20 08:44 Dose: 2 inhalation Documented by: Discontinued Medications Bupropion HCl (Bupropion 100 Mg Tab.Sr) 100 mg PO 0600,1200,1700 [facility] Diazepam (Diazepam 5 Mg Tab) 5 mg PO TID [facility] Last Admin: 09/11/20 14:00 Dose: 5 mg Documented by: Diazepam (Diazepam 5 Mg Tab) 5 mg PO Q6H [facility] Last Admin: 09/11/20 16:44 Dose: 5 mg Documented by: Folic Acid (Folic Acid 1 Mg Tab) 1 mg PO ONETIME ONE Stop: 09/08/20 16:19 Last Admin: 09/08/20 16:42 Dose: 1 mg Documented by: Furosemide (Furosemide 20 Mg/2 Ml Vial) 20 mg IVPUSH ONETIME ONE Stop: 09/09/20 12:04 Last Admin: 09/09/20 12:38 Dose: 20 mg Documented by: Furosemide (Furosemide 20 Mg/2 Ml Vial) 20 mg IVPUSH NOW ONE Stop: 09/10/20 13:50 Last Admin: 09/10/20 14:29 Dose: 20 mg Documented by: Sodium Chloride (Normal Saline) 1,000 mls @ 500 mls/hr IV ONETIME ONE Stop: 09/08/20 18:17 Last Admin: 09/08/20 16:41 Dose: 500 mls/hr Documented by: Lactated Ringer's (Ringers, Lactated) 1,000 mls @ 100 mls/hr IV ASDIRECTED [facility] Last Admin: 09/09/20 17:47 Dose: 100 mls/hr Documented by: Magnesium Sulfate 2 gm/ Premix 50 mls @ 25 mls/hr IV ONETIME ONE Stop: 09/11/20 13:58 Last Admin: 09/11/20 12:20 Dose: 25 mls/hr Documented by: Lorazepam (Lorazepam 2 Mg/Ml Sdv) 4 mg IVPUSH ONETIME ONE Stop: 09/11/20 05:40 Last Admin: 09/11/20 05:50 Dose: 4 mg Documented by: Magnesium Oxide (Magnesium Oxide 400 Mg Tab) 400 mg PO ONETIME ONE Stop: 09/09/20 09:11 Last Admin: 09/09/20 09:40 Dose: 400 mg Documented by: Multivitamins/Minerals/Vitamin C (Multivitamin Tab) 1 tab PO ONETIME ONE Stop: 09/08/20 18:29 Last Admin: 09/08/20 22:05 Dose: 1 tab Documented by: Ondansetron HCl (Ondansetron 4 Mg/2 Ml Sdv) 4 mg IVPUSH ONETIME ONE Stop: 09/08/20 16:20 Last Admin: 09/08/20 16:41 Dose: 4 mg Documented by: Oxycodone HCl (Oxycodone 5 Mg Tab) 5 mg PO Q4H PRN PRN Reason: Pain (moderate 4-6) Last Admin: 09/11/20 16:44 Dose: 5 mg Documented by: Potassium Chloride (Potassium Chloride 20 Meq Tab.Er) 20 meq PO ONETIME ONE Stop: 09/09/20 09:11 Last Admin: 09/09/20 09:40 Dose: 20 meq Documented by: Thiamine HCl (Thiamine 100 Mg Tab) 100 mg PO ONETIME ONE Stop: 09/08/20 16:19 Last Admin: 09/08/20 16:42 Dose: 100 mg Documented by: - Exam Quality Assessment: Supplemental Oxygen (3 L per nasal cannula), DVT Prophylaxis (Heparin) General: Alert, Oriented, Cooperative, No Acute Distress HEENT: Pupils Equal, Pupils Reactive, Mucous Membr. Moist/[place] Neck: Supple, Trachea Midline Lungs: Normal Respiratory Effort, Wheezing (Prolonged expiration with an expiratory wheeze) Cardiovascular: Regular Rhythm, Tachycardia GI/Abdominal Exam: Normal Bowel Sounds, Soft, Non-Tender, No Distention (Male) Exam: Deferred Back Exam: Normal Inspection Extremities: Normal Inspection, Normal Range of Motion, Non-Tender, No Pedal Edema, Normal Capillary Refill Peripheral Pulses: 2+: Radial (L), Radial (R) Skin: Warm, Dry, Intact Neurological: No New Focal Deficit Psy/Mental Status: Alert, Normal Affect, Normal Mood - Patient Data Lab Results Last 24 hrs: Laboratory Results - last 24 hr 09/13/20 09/13/20 Range/Units 05:20 05:20 WBC 9.03 (4.23-9.07) K/mm3 RBC 3.70 L (4.63-6.08) M/mm3 Hgb 13.7 (13.7-17.5) gm/dl Hct 41.7 (40.1-51.0) % MCV 112.7 H D (79.0-92.2) fl MCH 37.0 H (25.7-32.2) pg MCHC 32.9 (32.2-35.5) g/dl RDW Std Deviation 63.7 H (35.1-43.9) fL Plt Count 154 L (163-337) K/mm3 MPV 10.2 (9.4-12.3) fl Sodium 139 (136-145) mEq/L Potassium 4.2 (3.5-5.1) mEq/L Chloride 100 (98-107) mEq/L Carbon Dioxide 30 (21-32) mEq/L Anion Gap 13.2 (5-15) BUN 10 (7-18) mg/dL Creatinine 0.7 (0.7-1.3) mg/dL Est Cr Clr Drug Dosing 118.77 mL/min Estimated GFR (MDRD) > 60 (>60) mL/min BUN/Creatinine Ratio 14.3 (14-18) Glucose 85 (70-99) mg/dL Calcium 8.2 L (8.5-10.1) mg/dL Magnesium 2.2 (1.8-2.4) mg/dL Total Bilirubin 2.4 H (0.2-1.0) mg/dL AST 135 H (15-37) U/L ALT 59 (16-63) U/L Alkaline Phosphatase 194 H (46-116) U/L Total Protein 7.6 (6.4-8.2) g/dl Albumin 2.4 L (3.4-5.0) g/dl Globulin 5.2 gm/dL Albumin/Globulin Ratio 0.5 L (1-2) Result Diagrams: 09/13/20 05:20 09/13/20 05:20 Sepsis Event Note - Evaluation Sepsis Screening Result: No Definite Risk - Focused Exam Vital Signs: Vital Signs Temp Pulse Resp BP Pulse Ox Pulse Ox 09/13/20 08:48 96 09/13/20 08:45 97 09/13/20 04:20 97.3 F 96 20 108/93 H 91 L 09/13/20 00:23 97.4 F 94 16 132/97 H 90 L - Problem List & Annotations (1) Alcohol abuse with intoxication SNOMED Code(s): 34551487 Code(s): F10.129 - ALCOHOL ABUSE WITH INTOXICATION, UNSPECIFIED Status: Acute Priority: High Current Visit: Yes (2) Hyperbilirubinemia SNOMED Code(s): 67550257 Code(s): E80.6 - OTHER DISORDERS OF BILIRUBIN METABOLISM Status: Acute Priority: Medium Current Visit: Yes (3) Hypoxia SNOMED Code(s): 005670168 Code(s): R09.02 - HYPOXEMIA Status: Acute Priority: High Current Visit: Yes (4) Thrombocytopenia SNOMED Code(s): 591305354 Code(s): D69.6 - THROMBOCYTOPENIA, UNSPECIFIED Status: Acute Priority: Medium Current Visit: Yes (5) Transaminitis SNOMED Code(s): 897313567, 856265376 Code(s): R74.01 - ELEVATION OF LEVELS OF LIVER TRANSAMINASE LEVELS Status: Acute Priority: High Current Visit: Yes (6) Anxiety SNOMED Code(s): 49997061 Code(s): F41.9 - ANXIETY DISORDER, UNSPECIFIED Status: Chronic Priority: Medium Current Visit: Yes (7) COPD (chronic obstructive pulmonary disease) SNOMED Code(s): 11709011 Code(s): J44.9 - CHRONIC OBSTRUCTIVE PULMONARY DISEASE, UNSPECIFIED Status: Chronic Priority: Medium Current Visit: Yes Qualifiers: COPD type: unspecified COPD Qualified Code(s): J44.9 - Chronic obstructive pulmonary disease, unspecified (8) Chronic alcoholism SNOMED Code(s): 5844744 Code(s): F10.20 - ALCOHOL DEPENDENCE, UNCOMPLICATED Status: Chronic Priority: High Current Visit: Yes (9) Chronic back pain SNOMED Code(s): 011743112 Code(s): M54.9 - DORSALGIA, UNSPECIFIED; G89.29 - OTHER CHRONIC PAIN Status: Chronic Priority: Low Current Visit: Yes Qualifiers: Back pain location: back pain in unspecified location Back pain laterality: unspecified Qualified Code(s): M54.9 - Dorsalgia, unspecified; G89.29 - Other chronic pain (10) Depression SNOMED Code(s): 91939600 Code(s): F32.9 - MAJOR DEPRESSIVE DISORDER, SINGLE EPISODE, UNSPECIFIED Status: Chronic Priority: Medium Current Visit: Yes Qualifiers: Depression Type: other depression Qualified Code(s): F32.89 - Other specified depressive episodes (11) History of methamphetamine use SNOMED Code(s): 802664443 Code(s): Z87.898 - PERSONAL HISTORY OF OTHER SPECIFIED CONDITIONS Status: Chronic Priority: Medium Current Visit: Yes (12) Nicotine use SNOMED Code(s): 171527081 Code(s): Z72.0 - TOBACCO USE Status: Chronic Priority: Medium Current Visit: Yes (13) Obesity SNOMED Code(s): 492537435, 951746995 Code(s): E66.9 - OBESITY, UNSPECIFIED Status: Chronic Priority: Medium Current Visit: Yes Qualifiers: Obesity type: unspecified obesity type Obesity classification: adult class 3 (BMI >= 40) Serious obesity comorbidity presence: unspecified whether serious comorbidity present Body mass index: BMI 40.0-44.9 Qualified Code(s): E66.01 - Morbid (severe) obesity due to excess calories; Z68.41 - Body mass index [BMI]40.0-44.9, adult (14) Sleep apnea SNOMED Code(s): 76255528 Code(s): G47.30 - SLEEP APNEA, UNSPECIFIED Status: Suspected Priority: Medium Current Visit: Yes Qualifiers: Sleep apnea type: unspecified type Qualified Code(s): G47.30 - Sleep apnea, unspecified (15) Hypomagnesemia SNOMED Code(s): 560083754 Code(s): E83.42 - HYPOMAGNESEMIA Status: Resolved Priority: High Current Visit: Yes (16) HLD (hyperlipidemia) SNOMED Code(s): 00436642 Code(s): E78.5 - HYPERLIPIDEMIA, UNSPECIFIED Status: Chronic Priority: Low Current Visit: No Qualifiers: Hyperlipidemia type: unspecified Qualified Code(s): E78.5 - Hyperlipidemia, unspecified (17) HTN (hypertension) SNOMED Code(s): 31530202 Code(s): I10 - ESSENTIAL (PRIMARY) HYPERTENSION Status: Chronic Priority: Medium Current Visit: No Qualifiers: Hypertension type: unspecified Qualified Code(s): I10 - Essential (primary) hypertension (18) Osteoarthritis SNOMED Code(s): 082544103 Code(s): M19.90 - UNSPECIFIED OSTEOARTHRITIS, UNSPECIFIED SITE Status: Chronic Priority: Low Current Visit: No Qualifiers: Osteoarthritis location: unspecified site Osteoarthritis type: unspecified Qualified Code(s): M19.90 - Unspecified osteoarthritis, unspecified site (19) PTSD (post-traumatic stress disorder) SNOMED Code(s): 56138260 Code(s): F43.10 - POST-TRAUMATIC STRESS DISORDER, UNSPECIFIED Status: Chronic Priority: Medium Current Visit: No - Problem List Review Problem List Initiated/Reviewed/Updated: Yes - Assessment Assessment:: Assessment - day of admission - 09/08/2020 Assessment: This is a 60M with PMHx of alcoholism, depression, COPD presenting with alcohol intoxication 1. Alcohol intoxication 2. Hx of Alcoholism 3. Transaminitis 4. Hx of HTn 5. Hx of COPD 6. Hx of HLD 7. Hx of depression and anxiety 8. Obesity Plan -IVF -CIWA alcohol withdrawal protocol -follow LFTS -check RUQ US -folate/thiamine - consult Code-full DVT ppx-heparin subq 09/09/2020 60-year-old male who presents to ED on 09/08/2020 testing assistance with alcohol intoxication and detox. He reports he has been drinking 20 beers a day since he was around 18 years old with a occasional episodes of sobriety that do not last very long. He reports his fiance 2 days ago. He reported to the [facility] for detox who sent him here. No history of alcohol withdrawal seizures. He follows with [facility]. At the alcohol level on admission was 0.22. Labs been grossly stable today. WBC 7.61. Hemoglobin 13.6. Platelet 111,000 neutrophils are elevated 68.8%. Sodium is 138. Potassium 3.8. BUN is 4. Creatinine 0.7. GFR greater than 60. Glucose is 123. Calcium 8.0. Magnesium 1.9. Total bilirubin 2.3. AST is 244. ALT 77. Alkaline phosphatase 219. Albumin is 2.4. Hold medications were reconciled today. He does have a history of COPD and will continue his respiratory medications. I-S and Acapella are ordered. Respiratory consultation is ordered. Suspect a component of sleep apnea and would like patient to obtain sleep study after discharge. Has been requiring 3 L of oxygen while here. He is not normally on oxygen. He has been mildly tachycardic and mildly hypertensive. CIWA protocol is in place. CIWA score has been from 3-9 since admission. Denies any current hallucinations but states he is somewhat anxious and very tired. Case management and social work consulted. Abdominal ultrasound was obtained although was noted there was difficulty viewing midline structures due to bowel gas and body habitus. There is probable fatty infiltration and mild enlargement of the liver. Gallbladder and kidneys showed nothing acute. Hepatitis panel is ordered and pending. We will obtain fractionated bilirubin as well. Patient will remain hospitalized pending progression of withdrawal symptoms and disposition plan. 09/10/2020 Patient endorses night sweats and tremors endorses anxiety denies chest pain SOB at baseline tolerating diet patient SOB and hypoxic; hx of COPD; will give 1 time dose of IV lasix 09/11/2020 Patient with hallucinations overnight increased CIWA scores 20+ had to be given additional 4mg IV ativan this AM patient sleeping but arousable unable to provide ROS 09/12/2020 60-year-old male admitted to our ICU for detox. Over the weekend patient did start to detox fairly hard with elevated CIWA score. We have continued Ativan per CIWA protocol patient was also started on 7.5 mg every 6 hours scheduled Valium. He remains somewhat sedated but does feel pretty good. No hallucinations or other withdrawal symptoms. He remains somewhat weak and continues to have difficulty with ambulation. This is likely exacerbated by Ativan and Valium for detox. PT and OT are ordered. He is up to 4 L of oxygen which again is likely worsened by Ativan and Valium administration. Patient does have baseline respiratory issues including COPD and suspected sleep apnea. CIWA score for past 24 hours has been between 9 and 2. Labs today show WBC of 8.36. Hemoglobin 13.7. Hematocrit 39.1. Platelet 149,000. Sodium 138. Potassium 4.4. Chloride 101. Carbon dioxide 28. Anion gap 13.4. BUN 9. Creatinine 0.7. GFR greater than 60. Glucose 84. Calcium 8.1. Magnesium 2.2. Total bilirubin 0.6. AST 159, ALT 64, alkaline phosphatase 205. Protein 7.4. Albumin 2.3. Hepatitis panel obtained on admission is grossly negative. We will continue current treatment plan. Hopeful for discharge in next 24 to 48 hours to [facility] for continued alcohol abuse treatment. 09/13/2020 Patient denies significant detox symptoms. He states he does feel slightly tremulous today however he is not having any diaphoresis, nausea, vomiting or diarrhea. He is no longer hallucinating. Biggest complaint is that he states he feels very groggy. He is getting volume 7.5 every 6 hours. Will likely decrease this to 5 mg 3 times daily. Does have some generalized weakness and is currently working with PT and OT. Discussed with him at length the need to get up and get moving more to regain his strength and improve oxygenation. Continues on 3 L of oxygen per nasal cannula and it is believed that he has sleep apnea as well. CIWA score throughout the night was a 5 and has been a 1 today. Will downgrade to MSP status with TLM. CIWA's q4h. Hopeful discharge in the next 24 to 48 hours to the [facility] for continued alcohol treatment. Patient is wanting help to stop drinking alcohol so he is very motivated and in agreement for this. - Plan Plan:: Alcohol abuse with intoxication Chronic alcoholism History of methamphetamine use Alcohol withdrawal syndrome * 1 gm folic acid daily * 100mg daily thiamine * CIWA protocol * IV fluids as ordered-->Discontinued * CM/SW consultation * Monitor electrolytes * Telemetry * Continue scheduled Valium 5mg po tid Depression Anxiety PTSD (post-traumatic stress disorder) * Home medications as ordered * Monitor need for psychiatry consultation Transaminitis, improving Hyperbilirubinemia, improving Thrombocytopenia, improving * IV fluids as ordered-Discontinued 09/10 * Hepatitis panel - Negative * Abdominal ultrasound obtained - see report no findings of acute cholecystitis * Avoid hepatotoxic meds if able * Monitor labs HTN (hypertension) * Home medications as ordered * No acute concerns * Monitor vital signs COPD (chronic obstructive pulmonary disease) Suspected sleep apnea Hypoxia * RT consultation * Continue home respiratory meds * IS * Duonebs as needed * O2 as needed to keep saturations >88% * Recommend outpatient sleep study after discharge * Obtain a baseline chest xray 09/13/20 HLD (hyperlipidemia) * No acute concerns Nicotine use * 21mg nicotine patch daily * Cessation counseling * Offer nicotine patches at discharge Chronic back pain Osteoarthritis Obesity * PT/OT * Consider composing machine operator/tender consultation * Pain medications as ordered Hypomagnesemia * Resolved after supplementation * Monitor labs Code status: Full code PCP: Dr. Villanueva with [facility] DVT prophylaxis: Heparin Subcutaneous Disposition: Patient changed to MSP status with TLM. Length of stay likely 3 to 4 days.-->Possible discharge 2 days once resolution of withdrawal
[2020-09-13] MEDS: Acetaminophen 325 MG Tab PO PRN ×2 (10:14→16:45)
--- NOTE | 2020-09-13 11:51 | CR ---
Chest: Portable view of the chest was obtained. Comparison: Prior chest x-ray of 09/18/19. Heart is minimally prominent. Central lung markings are increased raising the possibility of mild pulmonary vascular congestion. No acute osseous abnormality is appreciated. Impression: 1. Findings suspicious for mild CHF. Please correlate if this matches clinically. Diagnostic code #3
[2020-09-13] MEDS: Melatonin 3 MG Tab PO PRN (21:45)
[2020-09-14] MEDS: Heparin Sodium 5,000 Units/ML Vial SUBCUT SCH ×3 (01:45→17:35)
[2020-09-14] MEDS: Gabapentin 300 MG Cap PO SCH ×3 (06:00→16:05)
[2020-09-14] MEDS: DULoxetine 30 MG Cap PO SCH (06:01)
[2020-09-14] MEDS: BUDESONIDE INH SCH ×2 (08:59→20:09)
[2020-09-14] MEDS: TIOTROPIUM BROMIDE INH SCH (08:59)
[2020-09-14] MEDS: FORMOTEROL INH SCH ×2 (08:59→20:09)
[2020-09-14] MEDS: Potassium Chloride 20 MEQ Tab.ER PO SCH (09:42)
[2020-09-14] MEDS: Diazepam 5 MG Tab PO SCH (09:42)
[2020-09-14] MEDS: Thiamine 100 MG Tab PO SCH (09:42)
[2020-09-14] MEDS: Folic Acid 1 MG Tab PO SCH (09:42)
[2020-09-14] MEDS: Nicotine 21 MG/24 Hr Patch TRDERM SCH (09:44)
[2020-09-14] MEDS: Atenolol 25 MG Tab PO SCH (09:46)
[2020-09-14] MEDS: amLODIPine 5 MG Tab PO SCH (09:46)
[2020-09-14] MEDS ORDERED: Furosemide 20 MG Tab PO SCH (11:15)
--- NOTE | 2020-09-14 11:16 | PCM.PN ---
- General Info Date of Service: 09/14/20 Admission Dx/Problem (Free Text): Alcohol withdrawal Functional Status: Reports: Pain Controlled, Tolerating Diet, Ambulating, Urinating. Denies: New Symptoms - Review of Systems General: Reports: Weakness. Denies: Fever, Fatigue, Malaise, Chills HEENT: Reports: No Symptoms. Denies: Headaches, Sore Throat Pulmonary: Reports: No Symptoms. Denies: Shortness of Breath, Cough, Sputum, Wheezing Cardiovascular: Reports: Dyspnea on Exertion (improving ), Edema. Denies: Chest Pain, Palpitations Gastrointestinal: Reports: No Symptoms. Denies: Abdominal Pain, Constipation, Diarrhea, Nausea Genitourinary: Reports: No Symptoms. Denies: Pain Musculoskeletal: Reports: No Symptoms Skin: Reports: No Symptoms. Denies: Cyanosis Neurological: Reports: Difficulty Walking, Weakness, Gait Disturbance. Denies: Confusion, Dizziness, Headache, Pre-Existing Deficit, Seizure, Syncope, Tingling Psychiatric: Reports: No Symptoms. Denies: Confusion, Depression, Mood Lability, Anxiety, Agitation - Patient Data Vitals - Most Recent: Last Vital Signs Temp 97.7 F 09/14/20 07:51 Pulse 95 09/14/20 09:46 Resp 18 09/14/20 07:51 BP 125/78 09/14/20 09:46 Pulse Ox 94 L 09/14/20 08:59 Weight - Most Recent: 274 lb 12.8 oz I&O - Last 24 Hours: Intake & Output 09/13/20 09/14/20 09/14/20 22:59 06:59 14:59 Intake Total 980 800 Balance 980 800 Lab Results Last 24 Hours: Laboratory Results - last 24 hr 09/14/20 Range/Units 05:51 WBC 8.31 (4.23-9.07) K/mm3 RBC 3.70 L (4.63-6.08) M/mm3 Hgb 13.7 (13.7-17.5) gm/dl Hct 41.1 (40.1-51.0) % MCV 111.1 H (79.0-92.2) fl MCH 37.0 H (25.7-32.2) pg MCHC 33.3 (32.2-35.5) g/dl RDW Std Deviation 62.6 H (35.1-43.9) fL Plt Count 155 L (163-337) K/mm3 MPV 10.2 (9.4-12.3) fl Med Orders - Current: Current Medications Acetaminophen (Acetaminophen 325 Mg Tab) 650 mg PO Q6H PRN PRN Reason: Pain Last Admin: 09/13/20 16:45 Dose: 650 mg Documented by: Albuterol (Albuterol 0.083% 2.5 Mg/3 Ml Neb Soln) 2.5 mg NEB Q2H PRN PRN Reason: SOB/Wheezing Last Admin: 09/11/20 12:06 Dose: 2.5 mg Documented by: Albuterol/Ipratropium (Albuterol/Ipratropium 3.0-0.5 Mg/3 Ml Neb Soln) 3 ml NEB Q6HRRT PRN PRN Reason: Wheezing Last Admin: 09/11/20 08:11 Dose: 3 ml Documented by: Amlodipine Besylate (Amlodipine 5 Mg Tab) 5 mg PO DAILY [facility] Last Admin: 09/14/20 09:46 Dose: 5 mg Documented by: Artificial Tears (Carboxymethylcellulose Sodium 1% Ophth Gel 15 Ml Bottle) 0 ml EYEBOTH ASDIRECTED PRN PRN Reason: Dry Eyes Last Admin: 09/11/20 08:40 Dose: 1 drop Documented by: Atenolol (Atenolol 25 Mg Tab) 25 mg PO DAILY [facility] Last Admin: 09/14/20 09:46 Dose: 25 mg Documented by: Benzocaine/Menthol (Benzocaine/Cetylpyridinium/Menthol Lozenge) 1 lozenge MUCMEM 6XDAY PRN PRN Reason: Throat irritation Last Admin: 09/11/20 02:32 Dose: 1 lozenge Documented by: Diazepam (Diazepam 5 Mg Tab) 5 mg PO TID [facility] Last Admin: 09/14/20 09:42 Dose: 5 mg Documented by: Duloxetine HCl (Duloxetine 30 Mg Cap) 120 mg PO ACBREAKFAST [facility] Last Admin: 09/14/20 06:01 Dose: 120 mg Documented by: Folic Acid (Folic Acid 1 Mg Tab) 1 mg PO DAILY [facility] Last Admin: 09/14/20 09:42 Dose: 1 mg Documented by: Gabapentin (Gabapentin 300 Mg Cap) 300 mg PO TID@0600,1200,1700 [facility] Last Admin: 09/14/20 06:00 Dose: 300 mg Documented by: Heparin Sodium (Porcine) (Heparin Sodium 5,000 Units/Ml Vial) 5,000 units GONZALEZ BCUT Q8H [facility] Last Admin: 09/14/20 09:42 Dose: 5,000 units Documented by: Hydromorphone HCl (Hydromorphone 0.5 Mg/0.5 Ml Syringe) 0.5 mg IVPUSH Q2H PRN PRN Reason: Pain (severe 7-10) Last Admin: 09/12/20 04:12 Dose: 0.5 mg Documented by: Lorazepam (Lorazepam 1 Mg Tab) 0 mg PO ASDIRECTED [facility]; Protocol Last Admin: 09/11/20 20:17 Dose: 1 mg Documented by: Lorazepam (Lorazepam 2 Mg/Ml Sdv) 0 mg IVPUSH Q1H PRN; Protocol PRN Reason: Alcohol withdrawal Last Admin: 09/11/20 17:47 Dose: 2 mg Documented by: Melatonin (Melatonin 3 Mg Tab) 6 mg PO BEDTIME PRN PRN Reason: Sleep Last Admin: 09/13/20 21:45 Dose: 6 mg Documented by: Miscellaneous Information (Remove Nicotine Patch) 1 ea TRDERM DAILY [facility] Last Admin: 09/14/20 09:46 Dose: 1 ea Documented by: Nicotine (Nicotine 21 Mg/24 Hr Patch) 21 mg TRDERM DAILY [facility] Last Admin: 09/14/20 09:44 Dose: 21 mg Documented by: Oxycodone HCl (Oxycodone 5 Mg Tab) 5 - 10 mg PO Q4H PRN PRN Reason: Pain Last Admin: 09/12/20 20:42 Dose: 10 mg Documented by: Budesonide/Formoterol 160/4.5 Mcg Inhaler Patient's Own Med 0 each INH BID [facility] Last Admin: 09/14/20 08:59 Dose: 2 each Documented by: Potassium Chloride (Potassium Chloride 20 Meq Tab.Er) 20 meq PO DAILY [facility] Last Admin: 09/14/20 09:42 Dose: 20 meq Documented by: Sodium Chloride (Sodium Chloride 0.9% 10 Ml Syringe) 10 ml FLUSH ASDIRECTED PRN PRN Reason: Keep Vein Open Last Admin: 09/08/20 16:42 Dose: 10 ml Documented by: Thiamine HCl (Thiamine 100 Mg Tab) 100 mg PO DAILY [facility] Last Admin: 09/14/20 09:42 Dose: 100 mg Documented by: Tiotropium [place] (Tiotropium [place] 4 Gm Inhalation [place] (2.5mcg/1 Dose) * Patient's Own Med *) 0 gm INH DAILY [facility] Last Admin: 09/14/20 08:59 Dose: 2 inhalation Documented by: Discontinued Medications Bupropion HCl (Bupropion 100 Mg Tab.Sr) 100 mg PO 0600,1200,1700 [facility] Diazepam (Diazepam 5 Mg Tab) 5 mg PO TID [facility] Last Admin: 09/11/20 14:00 Dose: 5 mg Documented by: Diazepam (Diazepam 5 Mg Tab) 5 mg PO Q6H [facility] Last Admin: 09/11/20 16:44 Dose: 5 mg Documented by: Diazepam (Diazepam 5 Mg Tab) 7.5 mg PO Q6H [facility] Last Admin: 09/13/20 04:22 Dose: 7.5 mg Documented by: Folic Acid (Folic Acid 1 Mg Tab) 1 mg PO ONETIME ONE Stop: 09/08/20 16:19 Last Admin: 09/08/20 16:42 Dose: 1 mg Documented by: Furosemide (Furosemide 20 Mg/2 Ml Vial) 20 mg IVPUSH ONETIME ONE Stop: 09/09/20 12:04 Last Admin: 09/09/20 12:38 Dose: 20 mg Documented by: Furosemide (Furosemide 20 Mg/2 Ml Vial) 20 mg IVPUSH NOW ONE Stop: 09/10/20 13:50 Last Admin: 09/10/20 14:29 Dose: 20 mg Documented by: Sodium Chloride (Normal Saline) 1,000 mls @ 500 mls/hr IV ONETIME ONE Stop: 09/08/20 18:17 Last Admin: 09/08/20 16:41 Dose: 500 mls/hr Documented by: Lactated Ringer's (Ringers, Lactated) 1,000 mls @ 100 mls/hr IV ASDIRECTED [facility] Last Admin: 09/09/20 17:47 Dose: 100 mls/hr Documented by: Magnesium Sulfate 2 gm/ Premix 50 mls @ 25 mls/hr IV ONETIME ONE Stop: 09/11/20 13:58 Last Admin: 09/11/20 12:20 Dose: 25 mls/hr Documented by: Lorazepam (Lorazepam 2 Mg/Ml Sdv) 4 mg IVPUSH ONETIME ONE Stop: 09/11/20 05:40 Last Admin: 09/11/20 05:50 Dose: 4 mg Documented by: Magnesium Oxide (Magnesium Oxide 400 Mg Tab) 400 mg PO ONETIME ONE Stop: 09/09/20 09:11 Last Admin: 09/09/20 09:40 Dose: 400 mg Documented by: Multivitamins/Minerals/Vitamin C (Multivitamin Tab) 1 tab PO ONETIME ONE Stop: 09/08/20 18:29 Last Admin: 09/08/20 22:05 Dose: 1 tab Documented by: Ondansetron HCl (Ondansetron 4 Mg/2 Ml Sdv) 4 mg IVPUSH ONETIME ONE Stop: 09/08/20 16:20 Last Admin: 09/08/20 16:41 Dose: 4 mg Documented by: Oxycodone HCl (Oxycodone 5 Mg Tab) 5 mg PO Q4H PRN PRN Reason: Pain (moderate 4-6) Last Admin: 09/11/20 16:44 Dose: 5 mg Documented by: Potassium Chloride (Potassium Chloride 20 Meq Tab.Er) 20 meq PO ONETIME ONE Stop: 09/09/20 09:11 Last Admin: 09/09/20 09:40 Dose: 20 meq Documented by: Thiamine HCl (Thiamine 100 Mg Tab) 100 mg PO ONETIME ONE Stop: 09/08/20 16:19 Last Admin: 09/08/20 16:42 Dose: 100 mg Documented by: - Exam Quality Assessment: DVT Prophylaxis. No: Supplemental Oxygen, Urine Catheter General: Alert, Oriented, Cooperative, No Acute Distress HEENT: Pupils Equal, Pupils Reactive, Mucous Membr. Moist/[place] Neck: Supple, Trachea Midline Lungs: Clear to Auscultation, Normal Respiratory Effort Cardiovascular: Regular Rate, Regular Rhythm GI/Abdominal Exam: Normal Bowel Sounds, Soft, Non-Tender, No Distention (Male) Exam: Deferred Back Exam: Normal Inspection, Full Range of Motion Extremities: Normal Inspection, Normal Range of Motion, Non-Tender, Normal Capillary Refill, Pedal Edema (2-3+) Skin: Warm, Dry, Intact Neurological: No New Focal Deficit Psy/Mental Status: Alert, Normal Affect, Normal Mood. No: Labile Mood, Anxious, Agitated, Hallucinations, Withdrawal Symptoms - Patient Data Lab Results Last 24 hrs: Laboratory Results - last 24 hr 09/14/20 Range/Units 05:51 WBC 8.31 (4.23-9.07) K/mm3 RBC 3.70 L (4.63-6.08) M/mm3 Hgb 13.7 (13.7-17.5) gm/dl Hct 41.1 (40.1-51.0) % MCV 111.1 H (79.0-92.2) fl MCH 37.0 H (25.7-32.2) pg MCHC 33.3 (32.2-35.5) g/dl RDW Std Deviation 62.6 H (35.1-43.9) fL Plt Count 155 L (163-337) K/mm3 MPV 10.2 (9.4-12.3) fl Result Diagrams: 09/14/20 05:51 09/13/20 05:20 Sepsis Event Note - Evaluation Sepsis Screening Result: No Definite Risk - Focused Exam Vital Signs: Vital Signs Temp Pulse Resp BP Pulse Ox Pulse Ox 09/14/20 09:46 95 125/78 09/14/20 08:59 94 L 09/14/20 07:51 97.7 F 97 18 135/98 H 91 L 09/14/20 03:47 97.9 F 97 27 H 132/92 H 91 L 09/14/20 00:04 97.9 F 97 26 H 146/93 H 91 L - Problem List & Annotations (1) Transaminitis SNOMED Code(s): 137613505, 264450617 Code(s): R74.01 - ELEVATION OF LEVELS OF LIVER TRANSAMINASE LEVELS Status: Acute Priority: High Current Visit: Yes (2) HTN (hypertension) SNOMED Code(s): 45950790 Code(s): I10 - ESSENTIAL (PRIMARY) HYPERTENSION Status: Chronic Priority: Medium Current Visit: No Qualifiers: Hypertension type: unspecified Qualified Code(s): I10 - Essential (primary) hypertension (3) COPD (chronic obstructive pulmonary disease) SNOMED Code(s): 91633271 Code(s): J44.9 - CHRONIC OBSTRUCTIVE PULMONARY DISEASE, UNSPECIFIED Status: Chronic Priority: Medium Current Visit: Yes Qualifiers: COPD type: unspecified COPD Qualified Code(s): J44.9 - Chronic obstructive pulmonary disease, unspecified (4) HLD (hyperlipidemia) SNOMED Code(s): 25085944 Code(s): E78.5 - HYPERLIPIDEMIA, UNSPECIFIED Status: Chronic Priority: Low Current Visit: No Qualifiers: Hyperlipidemia type: unspecified Qualified Code(s): E78.5 - Hyperlipidemia, unspecified (5) History of methamphetamine use SNOMED Code(s): 182313043 Code(s): Z87.898 - PERSONAL HISTORY OF OTHER SPECIFIED CONDITIONS Status: Chronic Priority: Medium Current Visit: Yes (6) Depression SNOMED Code(s): 71044520 Code(s): F32.9 - MAJOR DEPRESSIVE DISORDER, SINGLE EPISODE, UNSPECIFIED Status: Chronic Priority: Medium Current Visit: Yes Qualifiers: Depression Type: other depression Qualified Code(s): F32.89 - Other specified depressive episodes (7) Anxiety SNOMED Code(s): 48330145 Code(s): F41.9 - ANXIETY DISORDER, UNSPECIFIED Status: Chronic Priority: Medium Current Visit: Yes (8) Obesity SNOMED Code(s): 446565236, 748669453 Code(s): E66.9 - OBESITY, UNSPECIFIED Status: Chronic Priority: Medium Current Visit: Yes Qualifiers: Obesity type: unspecified obesity type Obesity classification: adult class 3 (BMI >= 40) Serious obesity comorbidity presence: unspecified whether ser ious comorbidity present Body mass index: BMI 40.0-44.9 Qualified Code(s): E66.01 - Morbid (severe) obesity due to excess calories; Z68.41 - Body mass index [BMI]40.0-44.9, adult (9) PTSD (post-traumatic stress disorder) SNOMED Code(s): 66669526 Code(s): F43.10 - POST-TRAUMATIC STRESS DISORDER, UNSPECIFIED Status: Chronic Priority: Medium Current Visit: No (10) Nicotine use SNOMED Code(s): 792807945 Code(s): Z72.0 - TOBACCO USE Status: Chronic Priority: Medium Current Visit: Yes (11) Chronic back pain SNOMED Code(s): 860942070 Code(s): M54.9 - DORSALGIA, UNSPECIFIED; G89.29 - OTHER CHRONIC PAIN Status: Chronic Priority: Low Current Visit: Yes Qualifiers: Back pain location: back pain in unspecified location Back pain laterality: unspecified Qualified Code(s): M54.9 - Dorsalgia, unspecified; G89.29 - Other chronic pain (12) Osteoarthritis SNOMED Code(s): 360785351 Code(s): M19.90 - UNSPECIFIED OSTEOARTHRITIS, UNSPECIFIED SITE Status: Chronic Priority: Low Current Visit: No Qualifiers: Osteoarthritis location: unspecified site Osteoarthritis type: unspecified Qualified Code(s): M19.90 - Unspecified osteoarthritis, unspecified site (13) Alcohol abuse with intoxication SNOMED Code(s): 26695041 Code(s): F10.129 - ALCOHOL ABUSE WITH INTOXICATION, UNSPECIFIED Status: Acute Priority: High Current Visit: Yes (14) Chronic alcoholism SNOMED Code(s): 6855434 Code(s): F10.20 - ALCOHOL DEPENDENCE, UNCOMPLICATED Status: Chronic Priority: High Current Visit: Yes (15) Hyperbilirubinemia SNOMED Code(s): 48379075 Code(s): E80.6 - OTHER DISORDERS OF BILIRUBIN METABOLISM Status: Acute Priority: Medium Current Visit: Yes (16) Sleep apnea SNOMED Code(s): 84774119 Code(s): G47.30 - SLEEP APNEA, UNSPECIFIED Status: Suspected Priority: Medium Current Visit: Yes Qualifiers: Sleep apnea type: unspecified type Qualified Code(s): G47.30 - Sleep apnea, unspecified (17) Hypomagnesemia SNOMED Code(s): 382242343 Code(s): E83.42 - HYPOMAGNESEMIA Status: Resolved Priority: High Current Visit: Yes (18) Thrombocytopenia SNOMED Code(s): 144479225 Code(s): D69.6 - THROMBOCYTOPENIA, UNSPECIFIED Status: Acute Priority: Medium Current Visit: Yes (19) Hypoxia SNOMED Code(s): 432589923 Code(s): R09.02 - HYPOXEMIA Status: Acute Priority: High Current Visit: Yes (20) CHF (congestive heart failure) SNOMED Code(s): 07385073 Code(s): I50.9 - HEART FAILURE, UNSPECIFIED Status: Suspected Priority: High Current Visit: Yes Qualifiers: Heart failure type: unspecified Heart failure chronicity: acute Qualified Code(s): I50.9 - Heart failure, unspecified (21) Weakness SNOMED Code(s): 34612382 Code(s): R53.1 - WEAKNESS Status: Acute Priority: Medium Current Visit: Yes - Problem List Review Problem List Initiated/Reviewed/Updated: Yes - My Orders Last 24 Hours: My Active Orders 09/14/20 10:37 Echo Comp wo Cont [US] Routine - Assessment Assessment:: Assessment - day of admission - 09/08/2020 Assessment: This is a 60M with PMHx of alcoholism, depression, COPD presenting with alcohol intoxication 1. Alcohol intoxication 2. Hx of Alcoholism 3. Transaminitis 4. Hx of HTn 5. Hx of COPD 6. Hx of HLD 7. Hx of depression and anxiety 8. Obesity Plan -IVF -CIWA alcohol withdrawal protocol -follow LFTS -check RUQ US -folate/thiamine -sw consult Code-full DVT ppx-heparin subq 09/09/2020 60-year-old male who presents to ED on 09/08/2020 testing assistance with alcohol intoxication and detox. He reports he has been drinking 20 beers a day since he was around 18 years old with a occasional episodes of sobriety that do not last very long. He reports his fiance 2 days ago. He reported to the [facility] for detox who sent him here. No history of alcohol withdrawal seizures. He [facility] with [facility]. At the alcohol level on admission was 0.22. Labs been grossly stable today. WBC 7.61. Hemoglobin 13.6. Platelet 111,000 neutrophils are elevated 68.8%. Sodium is 138. Potassium 3.8. BUN is 4. Creatinine 0.7. GFR greater than 60. Glucose is 123. Calcium 8.0. Magnesium 1.9. Total bilirubin 2.3. AST is 244. ALT 77. Alkaline phosphatase 219. Albumin is 2.4. Hold medications were reconciled today. He does have a history of COPD and will continue his respiratory medications. I-S and Acapella are ordered. Respiratory consultation is ordered. Suspect a component of sleep apnea and would like patient to obtain sleep study after discharge. Has been requiring 3 L of oxygen while here. He is not normally on oxygen. He has been mildly tachycardic and mildly hypertensive. CIWA protocol is in place. CIWA score has been from 3-9 since admission. Denies any current hallucinations but states he is somewhat anxious and very tired. Case management and social work consulted. Abdominal ultrasound was obtained although was noted there was difficulty viewing midline structures due to bowel gas and body habitus. There is probable fatty infiltration and mild enlargement of the liver. Gallbladder and kidneys showed nothing acute. Hepatitis panel is ordered and pending. We will obtain fractionated bilirubin as well. Patient will remain hospitalized pending progression of withdrawal symptoms and disposition plan. 09/10/2020 Patient endorses night sweats and tremors endorses anxiety denies chest pain SOB at baseline tolerating diet patient SOB and hypoxic; hx of COPD; will give 1 time dose of IV lasix 09/11/2020 Patient with hallucinations overnight increased CIWA scores 20+ had to be given additional 4mg IV ativan this AM patient sleeping but arousable unable to provide ROS 09/12/2020 60-year-old male admitted to our ICU for detox. Over the weekend patient did start to detox fairly hard with elevated CIWA score. We have continued Ativan per CIWA protocol patient was also started on 7.5 mg every 6 hours scheduled Valium. He remains somewhat sedated but does feel pretty good. No hallucinations or other withdrawal symptoms. He remains somewhat weak and continues to have difficulty with ambulation. This is likely exacerbated by Ativan and Valium for detox. PT and OT are ordered. He is up to 4 L of oxygen which again is likely worsened by Ativan and Valium administration. Patient does have baseline respiratory issues including COPD and suspected sleep apnea. CIWA score for past 24 hours has been between 9 and 2. Labs today show WBC of 8.36. Hemoglobin 13.7. Hematocrit 39.1. Platelet 149,000. Sodium 138. Potassium 4.4. Chloride 101. Carbon dioxide 28. Anion gap 13.4. BUN 9. Creatinine 0.7. GFR greater than 60. Glucose 84. Calcium 8.1. Magnesium 2.2. Total bilirubin 0.6. AST 159, ALT 64, alkaline phosphatase 205. Protein 7.4. Albumin 2.3. Hepatitis panel obtained on admission is grossly negative. We will continue current treatment plan. Hopeful for discharge in next 24 to 48 hours to [facility] for continued alcohol abuse treatment. 09/13/2020 Patient denies significant detox symptoms. He states he does feel slightly tremulous today however he is not having any diaphoresis, nausea, vomiting or diarrhea. He is no longer hallucinating. Biggest complaint is that he states he feels very groggy. He is getting volume 7.5 every 6 hours. Will likely decrease this to 5 mg 3 times daily. Does have some generalized weakness and is currently working with PT and OT. Discussed with him at length the need to get up and get moving more to regain his strength and improve oxygenation. Continues on 3 L of oxygen per nasal cannula and it is believed that he has sleep apnea as well. CIWA score throughout the night was a 5 and has been a 1 today. Will downgrade to MSP status with TLM. CIWA's q4h. Hopeful discharge in the next 24 to 48 hours to the [facility] for continued alcohol treatment. Patient is wanting help to stop drinking alcohol so he is very motivated and in agreement for this. 09/14/2020 52-year-old male admitted for detox. CIWA's have been 0-1 overnight. States he has been having some difficulty walking and weakness but per PT report he walked over 100 feet with a walker. Valium was discontinued today. He has been weaned off of oxygen. Chest x-ray was obtained today showing findings concerning for CHF. Will order an echocardiogram today and start the patient on 40 mg daily Lasix. Patient has had edema while here as well. CBC obtained today shows a WBC of 8.31. Hemoglobin of 13.7. Platelet of 155,000. Planning for discharge tomorrow to [facility] for continued alcohol treatment. - Plan Plan:: Alcohol abuse with intoxication Chronic alcoholism History of methamphetamine use Alcohol withdrawal syndrome Weakness * 1 gm folic acid daily * 100mg daily thiamine * CIDC protocol * IV fluids as ordered-->Discontinued * CM/SW consultation * Monitor electrolytes * Telemetry * Discontinue scheduled Valium Depression Anxiety PTSD (post-traumatic stress disorder) * Home medications as ordered * Monitor need for psychiatry consultation Transaminitis, improving Hyperbilirubinemia, improving Thrombocytopenia, improving * IV fluids as ordered-Discontinued 09/10 * Hepatitis panel - Negative * Abdominal ultrasound obtained - see report no findings of acute cholecystitis * Avoid hepatotoxic meds if able * Monitor labs HTN (hypertension) * Home medications as ordered * No acute concerns * Monitor vital signs COPD (chronic obstructive pulmonary disease) Suspected sleep apnea Hypoxia Suspected CHF * RT consultation * Continue home respiratory meds * IS * Duonebs as needed * O2 as needed to keep saturations >88% * Recommend outpatient sleep study after discharge * CXR on 09/14/2020 concerning for CHF * Obtain echocardiogram * Start 40mg daily PO lasix HLD (hyperlipidemia) * No acute concerns Nicotine use * 21mg nicotine patch daily * Cessation counseling * Offer nicotine patches at discharge Chronic back pain Osteoarthritis Obesity * PT/OT * 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 Villanueva with the [facility] DVT prophylaxis: Heparin Subcutaneous Disposition: Patient changed to RUST status with TLM. Anticipate discharge tomorrow after echo results return.
[2020-09-14] MEDS ORDERED: Furosemide 40 MG Tab PO SCH (11:45)
[2020-09-14] MEDS ORDERED: Furosemide 20 MG Tab PO ONE (11:45)
[2020-09-14] MEDS: Acetaminophen 325 MG Tab PO PRN ×2 (16:14→23:19)
[2020-09-14] MEDS: Melatonin 3 MG Tab PO PRN (23:19)
[2020-09-15] MEDS: Heparin Sodium 5,000 Units/ML Vial SUBCUT SCH ×2 (02:05→09:33)
[2020-09-15] MEDS: Gabapentin 300 MG Cap PO SCH ×2 (05:49→12:15)
[2020-09-15] MEDS: DULoxetine 30 MG Cap PO SCH (05:49)
[2020-09-15] MEDS: BUDESONIDE INH SCH (08:07)
[2020-09-15] MEDS: FORMOTEROL INH SCH (08:07)
[2020-09-15] MEDS: TIOTROPIUM BROMIDE INH SCH (08:08)
[2020-09-15] MEDS ORDERED: cefTRIAXone 2 GM in Sodium Chloride 0.9% 100 ML IV ONE (08:17)
[2020-09-15] MEDS ORDERED: Furosemide 40 MG Tab PO SCH (09:00)
[2020-09-15] MEDS: Nicotine 21 MG/24 Hr Patch TRDERM SCH (09:25)
[2020-09-15] MEDS: amLODIPine 5 MG Tab PO SCH (09:26)
[2020-09-15] MEDS: Potassium Chloride 20 MEQ Tab.ER PO SCH (09:26)
[2020-09-15] MEDS: Folic Acid 1 MG Tab PO SCH (09:26)
[2020-09-15] MEDS: Atenolol 25 MG Tab PO SCH (09:26)
[2020-09-15] MEDS: Thiamine 100 MG Tab PO SCH (09:27)
--- NOTE | 2020-09-15 10:14 | PCM.DCSUM1 ---
Discharge Summary - Hospital Course HPI Initial Comments: This is a 60M with PMhx noted below including hx of alcoholism presenting for alcohol intoxication. The patient's endorses depression but denies suicidal ideation. His fiance a few days ago after succumbing to a staph infection in the hospital. He has increased his daily drinking since then to help cope with grief. He has had vodka and 10+ beers over last 24 hours. He went to detox and was referred to ED. He endorses nausea and vomiting. He denies chest pain and sob. denies abdominal pain. He denies hx of alcohol withdrawal seizure. Diagnosis: Stroke: No - Discharge Data Discharge Date: 09/15/20 (Admit date: 09/09/2020) Discharge Disposition: DC/Tfer to Other 70 Condition: Good - Referral to Home Health Primary Care Physician: Carmel Villanueva MD - Discharge Diagnosis/Problem(s) (1) Transaminitis SNOMED Code(s): 278957680, 572347584 ICD Code: R74.01 - ELEVATION OF LEVELS OF LIVER TRANSAMINASE LEVELS Status: Acute Priority: High Current Visit: Yes (2) HTN (hypertension) SNOMED Code(s): 81743373 ICD Code: I10 - ESSENTIAL (PRIMARY) HYPERTENSION Status: Chronic Priority: Medium Current Visit: No Qualifiers: Hypertension type: unspecified Qualified Code(s): I10 - Essential (primary) hypertension (3) COPD (chronic obstructive pulmonary disease) SNOMED Code(s): 20737692 ICD Code: J44.9 - CHRONIC OBSTRUCTIVE PULMONARY DISEASE, UNSPECIFIED Status: Chronic Priority: Medium Current Visit: Yes Qualifiers: COPD type: unspecified COPD Qualified Code(s): J44.9 - Chronic obstructive pulmonary disease, unspecified (4) HLD (hyperlipidemia) SNOMED Code(s): 43160764 ICD Code: E78.5 - HYPERLIPIDEMIA, UNSPECIFIED Status: Chronic Priority: Low Current Visit: No Qualifiers: Hyperlipidemia type: unspecified Qualified Code(s): E78.5 - Hyperlipidemia, unspecified (5) History of methamphetamine use SNOMED Code(s): 944452491 ICD Code: Z87.898 - PERSONAL HISTORY OF OTHER SPECIFIED CONDITIONS Status: Chronic Priority: Medium Current Visit: Yes (6) Depression SNOMED Code(s): 61894395 ICD Code: F32.9 - MAJOR DEPRESSIVE DISORDER, SINGLE EPISODE, UNSPECIFIED Status: Chronic Priority: Medium Current Visit: Yes Qualifiers: Depression Type: other depression Qualified Code(s): F32.89 - Other specified depressive episodes (7) Anxiety SNOMED Code(s): 51664664 ICD Code: F41.9 - ANXIETY DISORDER, UNSPECIFIED Status: Chronic Priority: Medium Current Visit: Yes (8) Obesity SNOMED Code(s): 714999299, 484660531 ICD Code: E66.9 - OBESITY, UNSPECIFIED Status: Chronic Priority: Medium Current Visit: Yes Qualifiers: Obesity type: unspecified obesity type Obesity classification: adult class 3 (BMI >= 40) Serious obesity comorbidity presence: unspecified whether serious comorbidity present Body mass index: BMI 40.0-44.9 Qualified Code(s): E66.01 - Morbid (severe) obesity due to excess calories; Z68.41 - Body mass index [BMI]40.0-44.9, adult (9) PTSD (post-traumatic stress disorder) SNOMED Code(s): 58493489 ICD Code: F43.10 - POST-TRAUMATIC STRESS DISORDER, UNSPECIFIED Status: Chronic Priority: Medium Current Visit: No (10) Nicotine use SNOMED Code(s): 931685224 ICD Code: Z72.0 - TOBACCO USE Status: Chronic Priority: Medium Current Visit: Yes (11) Chronic back pain SNOMED Code(s): 067087891 ICD Code: M54.9 - DORSALGIA, UNSPECIFIED; G89.29 - OTHER CHRONIC PAIN Status: Chronic Priority: Low Current Visit: Yes Qualifiers: Back pain location: back pain in unspecified location Back pain laterality: unspecified Qualified Code(s): M54.9 - Dorsalgia, unspecified; G89.29 - Other chronic pain (12) Osteoarthritis SNOMED Code(s): 868323085 ICD Code: M19.90 - UNSPECIFIED OSTEOARTHRITIS, UNSPECIFIED SITE Status: Chronic Priority: Low Current Visit: No Qualifiers: Osteoarthritis location: unspecified site Osteoarthritis type: unspecified Qualified Code(s): M19.90 - Unspecified osteoarthritis, unspecified site (13) Alcohol abuse with intoxication SNOMED Code(s): 93219069 ICD Code: F10.129 - ALCOHOL ABUSE WITH INTOXICATION, UNSPECIFIED Status: Acute Priority: High Current Visit: Yes (14) Chronic alcoholism SNOMED Code(s): 4283144 ICD Code: F10.20 - ALCOHOL DEPENDENCE, UNCOMPLICATED Status: Chronic Priority: High Current Visit: Yes (15) Hyperbilirubinemia SNOMED Code(s): 30473971 ICD Code: E80.6 - OTHER DISORDERS OF BILIRUBIN METABOLISM Status: Acute Priority: Medium Current Visit: Yes (16) Sleep apnea SNOMED Code(s): 24000945 ICD Code: G47.30 - SLEEP APNEA, UNSPECIFIED Status: Suspected Priority: Medium Current Visit: Yes Qualifiers: Sleep apnea type: unspecified type Qualified Code(s): G47.30 - Sleep apnea, unspecified (17) Hypomagnesemia SNOMED Code(s): 039590710 ICD Code: E83.42 - HYPOMAGNESEMIA Status: Resolved Priority: High Current Visit: Yes (18) Thrombocytopenia SNOMED Code(s): 628015286 ICD Code: D69.6 - THROMBOCYTOPENIA, UNSPECIFIED Status: Acute Priority: Medium Current Visit: Yes (19) Hypoxia SNOMED Code(s): 300611711 ICD Code: R09.02 - HYPOXEMIA Status: Acute Priority: High Current Visit: Yes (20) CHF (congestive heart failure) SNOMED Code(s): 35412101 ICD Code: I50.9 - HEART FAILURE, UNSPECIFIED Status: Ruled-out Priority: High Current Visit: Yes Qualifiers: Heart failure type: unspecified Heart failure chronicity: acute Qualified Code(s): I50.9 - Heart failure, unspecified (21) Weakness SNOMED Code(s): 00518713 ICD Code: R53.1 - WEAKNESS Status: Acute Priority: Medium Current Visit: Yes (22) UTI (urinary tract infection) SNOMED Code(s): 23766730 ICD Code: N39.0 - URINARY TRACT INFECTION, SITE NOT SPECIFIED Status: Acute Priority: High Current Visit: Yes Qualifiers: Urinary tract infection type: acute cystitis Hematuria presence: without hematuria Qualified Code(s): N30.00 - Acute cystitis without hematuria - Patient Summary/Data Consults: Consultations 09/08/20 18:20 Consult to Case Management/Dramatic Teacher [CONS] Routine 09/09/20 09:15 Consult to Occupational Therapy [OT Evaluation and Treatment] [CONS] Routine Consult to Respiratory Therapy [Respiratory Care Assess and Treatment] [CONS] Routine PT Evaluation and Treatment [CONS] Routine Labs Pending at D/C: Urine culture Recommended Follow-up Testing/Procedures: Follow-up with primary care provider within 5 days of discharge, sooner if needed. -Started on 300mg BID cefdinir at discharge due to UTI (Given rocephin while here) -Urine culture is pending and will be forwarded to PCP. -Patient discharged to [facility] -Recommend outpatient sleep study after symptoms have resolved -Recommend repeat CBC, CMP, and magnesium in follow-up Recommend psychiatry follow-up as needed Hospital Course: 60-year-old male who presents to ED on 09/08/2020 requesting assistance with alcohol intoxication and detox. He reports he has been drinking 20 beers a day since he was around 18 years old with a occasional episodes of sobriety that do not last very long. He reports his fiance 2 days ago. He reported to the [facility] for detox who sent him here. No history of alcohol withdrawal seizures. He follows with the [place] [facility]. At the alcohol level on admission was 0.22. CIWA protocol was initiated and at his worst his CIWA score was 26. He was down to 0 prior to discharging. He was noted to have a rather severe detox with hallucinations however no seizure activity was noted. He was placed on scheduled Valium and this was discontinued prior to discharge. He was requiring 3 L of oxygen while here and is thought this is multifactorial. Believed it was worsened by sedative medications. Also believe he has a component of sleep apnea. Recommend patient obtain outpatient sleep study after symptoms resolve. This will need to be ordered by the primary care provider in follow-up. He was utilizing incentive spirometer and Acapella and was able to be weaned off of oxygen prior to discharge. He was noted to have transaminitis on admission, likely secondary to alcohol use. His levels did trend down throughout his stay and a hepatitis panel was obtained and was grossly negative. Abdominal ultrasound was obtained with no findings concerning for cholecystitis. Please see full report. Throughout his stay patient has been very motivated to stop drinking. Staff from [facility] were here to see him and he was ultimately accepted for their inpatient program. He was utilizing a walker while here and PT and OT did see him and were recommending discharge to [facility]. Electrolytes were supplemented. Chest x-ray did show findings concerning for CHF. Patient is on as needed Lasix and does have a history of pedal edema. Echocardiogram was obtained on 09-14-2020 and shows 1. Left ventricular ejection fraction, by visual estimation, is 55 to 60%. 2. Normal right ventricular systolic function. 3. There is mild aortic valve sclerosis without stenosis. 4. No evidence of mitral valve regurgitation. 5. Trace tricuspid valve regurgitation. 6. The right ventricular systolic pressure is unable to be determined. 7. Technically difficult study related to body habitus. Suspect normal regional wall motion. Prior to discharge and nursing noted that the patient's urine was foul and cloudy. There have been no leukocytosis. UA was obtained and was slightly cloudy with 1+ bilirubin, 2.0 urobilinogen, 2+ leukocyte esterase, 50-75 WBCs, few WBC clumps, and moderate bacteria. Urine culture has been sent and is pending. This will be forwarded to primary care provider after discharge. There were no fevers or signs of systemic infection. Patient was given 2 g IV Rocephin and will be discharged on 300 mg p.o. Omnicef twice daily for 7 days. He was discharged to the [facility] today. All home medications were renewed, as he has been out and not taking several of them. He will be discharged on 7 days of 300 mg twice daily Omnicef to as mentioned prior. He was also prescribed 21 mg nicotine patches at discharge for smoking. Recommend follow-up with PCP within 5 days of discharge, sooner if needed. Recommend repeat CBC, CMP, and magnesium at that visit. Recommend PCP review urine culture results. Recommend outpatient sleep study as noted prior. Recommend as needed follow-up with psychiatry. - Patient Instructions Diet: Heart Healthy Diet, Low Sodium Activity: As Tolerated Driving: Do Not Drive Showering/Bathing: May Shower Notify Provider of: Fever, Increased Pain, Nausea and/or Vomiting Other/Special Instructions: Follow-up with primary care provider within 5 days of discharge. Follow-up with psychiatry at next available. Report to [facility] as directed. Resume home medications as directed. Renewal was sent for folic acid and thiamine. Your urine we collected indicated a urinary tract infection. The urine culture is sent for this and is pending. This will be forwarded to your primary care provider for discussion after we recieve it. You were started on an antibiotic. Take this twice daily as prescribed until gone. Remain sober. Prescription was sent for nicotine patches. Please discuss this with your primary care provider in follow-up as you will likely need stepdown dosing. Should symptoms return or worsen contact primary care provider return the emergency room. - Discharge Plan *PRESCRIPTION DRUG MONITORING PROGRAM REVIEWED*: No *COPY OF PRESCRIPTION DRUG MONITORING REPORT IN PATIENT INA: No Prescriptions/Med Rec: Ipratropium [Atrovent HFA] 1 puff INH Q6H #1 inhaler DULoxetine [Cymbalta] 120 mg PO DAILY #20 cap Folic Acid 1 mg PO DAILY 30 Days #30 tablet Nicotine [Habitrol] 21 mg TRDERM DAILY #1 box Furosemide [Lasix] 20 mg PO DAILY PRN #10 tab PRN Reason: Edema Gabapentin [Neurontin] 300 mg PO TID #60 cap amLODIPine [Norvasc] 5 mg PO DAILY 30 Days #20 tablet Cefdinir [Omnicef] 300 mg PO BID #14 cap Potassium Chloride 20 meq PO DAILY #20 tablet.er Tiotropium Stringer [Spiriva Respimat] 2 puff INH ONETIME #1 inhaler Budesonide/Formoterol [Symbicort 160-4.5 MCG] 2 puff INH BID #1 inhaler atenoloL [Tenormin] 25 mg PO DAILY #20 tablet Thiamine [Vitamin B-1] 100 mg PO BEDTIME 30 Days #30 tablet Home Medications: Home Meds Folic Acid 1 mg PO DAILY 30 Days #30 tablet 09/14/20 [Rx] Nicotine [Habitrol] 21 mg TRDERM DAILY #1 box 09/14/20 [Rx] Thiamine [Vitamin B-1] 100 mg PO BEDTIME 30 Days #30 tablet 09/14/20 [Rx] Budesonide/Formoterol [Symbicort 160-4.5 MCG] 2 puff INH BID #1 inhaler 09/15/20 [Rx] Cefdinir [Omnicef] 300 mg PO BID #14 cap 09/15/20 [Rx] DULoxetine [Cymbalta] 120 mg PO DAILY #20 cap 09/15/20 [Rx] Furosemide [Lasix] 20 mg PO DAILY PRN #10 tab 09/15/20 [Rx] Gabapentin [Neurontin] 300 mg PO TID #60 cap 09/15/20 [Rx] Ipratropium [Atrovent HFA] 1 puff INH Q6H #1 inhaler 08/05/21 [Rx] Potassium Chloride 20 meq PO DAILY #20 tablet.er 09/15/20 [Rx] Tiotropium Stringer [Spiriva Respimat] 2 puff INH ONETIME #1 inhaler 09/15/20 [Rx] amLODIPine [Norvasc] 5 mg PO DAILY 30 Days #20 tablet 09/15/20 [Rx] atenoloL [Tenormin] 25 mg PO DAILY #20 tablet 09/15/20 [Rx] Oxygen Therapy Mode: Room Air Patient Handouts: Alcohol Abuse and Dependence Information, Adult, Heart Failure Action Plan, Urinary Tract Infection, Adult, Qcei-wj-Lymp, Steps to Quit Smoking Forms: ED Department Discharge Referrals: Carmel Villanueva MD [Primary Care Provider] - 09/19/20 1:00 pm (please attend the scheduled follow up appointment.) - Discharge Summary/Plan Comment DC Time >30 min.: Yes (45 mins) - General Info Date of Service: 09/15/20 Admission Dx/Problem (Free Text: Alcohol withdrawal Functional Status: Reports: Pain Controlled, Tolerating Diet, Ambulating, Urinating. Denies: New Symptoms - Review of Systems General: Reports: No Symptoms, Weakness, Fatigue. Denies: Fever, Malaise, Chills HEENT: Reports: No Symptoms. Denies: Headaches, Sore Throat Pulmonary: Reports: No Symptoms. Denies: Shortness of Breath, Pleuritic Chest Pain, Cough, Sputum Cardiovascular: Reports: Dyspnea on Exertion (improving ), Edema. Denies: Chest Pain, Palpitations, Lightheadedness Gastrointestinal: Reports: No Symptoms. Denies: Abdominal Pain, Constipation, Diarrhea, Nausea, Vomiting Genitourinary: Reports: No Symptoms. Denies: Pain Musculoskeletal: Reports: No Symptoms Skin: Reports: No Symptoms. Denies: Cyanosis Neurological: Reports: Difficulty Walking, Weakness, Gait Disturbance. Denies: Confusion, Dizziness, Headache, Numbness, Pre-Existing Deficit, Syncope, Tingling Psychiatric: Reports: No Symptoms - Patient Data Vitals - Most Recent: Last Vital Signs Temp 97.5 F 09/15/20 07:34 Pulse 88 09/15/20 09:26 Resp 20 09/15/20 07:34 BP 141/88 H 09/15/20 09:26 Pulse Ox 92 L 09/15/20 08:08 Weight - Most Recent: 263 lb 9.6 oz I&O - Last 24 hours: Intake & Output 09/14/20 09/15/20 09/15/20 22:59 06:59 14:59 Intake Total 1440 700 Output Total 1700 1950 Balance -260 -1250 Lab Results - Last 24 hrs: Laboratory Results - last 24 hr 09/14/20 09/15/20 Range/Units 20:18 05:50 WBC 7.54 (4.23-9.07) K/mm3 RBC 3.82 L (4.63-6.08) M/mm3 Hgb 14.3 (13.7-17.5) gm/dl Hct 41.4 (40.1-51.0) % MCV 108.4 H (79.0-92.2) fl MCH 37.4 H (25.7-32.2) pg MCHC 34.5 (32.2-35.5) g/dl RDW Std Deviation 63.1 H (35.1-43.9) fL Plt Count 177 (163-337) K/mm3 MPV 10.0 (9.4-12.3) fl Urine Color Yellow (Yellow) Urine Appearance Slt cloudy H (Clear) Urine pH 7.5 (5.0-8.0) Ur Specific [place] 1.020 (1.005-1.030) Urine Protein Negative (Negative) Urine Glucose (UA) Negative (Negative) Urine Ketones Negative (Negative) Urine Occult Blood Negative (Negative) Urine Nitrite Negative (Negative) Urine Bilirubin 1+ H (Negative) Urine Urobilinogen 2.0 H (0.2-1.0) Ur Leukocyte Esterase 2+ H (Negative) Urine RBC 0-5 (0-5) /hpf Urine WBC 50-75 H (0-5) /hpf Urine WBC Clumps Few (NOT SEEN) /hpf Ur Squamous Epith Cells 0-5 (0-5) /hpf Urine Bacteria Moderate H (FEW) /hpf Urine Mucus Few (FEW) /hpf Med Orders - Current: Current Medications Acetaminophen (Acetaminophen 325 Mg Tab) 650 mg PO Q6H PRN PRN Reason: Pain Last Admin: 09/14/20 23:19 Dose: 650 mg Documented by: Albuterol (Albuterol 0.083% 2.5 Mg/3 Ml Neb Soln) 2.5 mg NEB Q2H PRN PRN Reason: SOB/Wheezing Last Admin: 09/11/20 12:06 Dose: 2.5 mg Documented by: Albuterol/Ipratropium (Albuterol/Ipratropium 3.0-0.5 Mg/3 Ml Neb Soln) 3 ml NEB Q6HRRT PRN PRN Reason: Wheezing Last Admin: 09/11/20 08:11 Dose: 3 ml Documented by: Amlodipine Besylate (Amlodipine 5 Mg Tab) 5 mg PO DAILY COUNTS INCLUDE 234 BEDS AT THE [facility] Last Admin: 09/15/20 09:26 Dose: 5 mg Documented by: Artificial Tears (Carboxymethylcellulose Sodium 1% Ophth Gel 15 Ml Bottle) 0 ml EYEBOTH ASDIRECTED PRN PRN Reason: Dry Eyes Last Admin: 09/11/20 08:40 Dose: 1 drop Documented by: Atenolol (Atenolol 25 Mg Tab) 25 mg PO DAILY COUNTS INCLUDE 234 BEDS AT THE [facility] Last Admin: 09/15/20 09:26 Dose: 25 mg Documented by: Benzocaine/Menthol (Benzocaine/Cetylpyridinium/Menthol Lozenge) 1 lozenge MUCMEM 6XDAY PRN PRN Reason: Throat irritation Last Admin: 09/11/20 02:32 Dose: 1 lozenge Documented by: Duloxetine HCl (Duloxetine 30 Mg Cap) 120 mg PO ACBREAKFAST COUNTS INCLUDE 234 BEDS AT THE [facility] Last Admin: 09/15/20 05:49 Dose: 120 mg Documented by: Folic Acid (Folic Acid 1 Mg Tab) 1 mg PO DAILY COUNTS INCLUDE 234 BEDS AT THE [facility] Last Admin: 09/15/20 09:26 Dose: 1 mg Documented by: Furosemide (Furosemide 40 Mg Tab) 40 mg PO DAILY COUNTS INCLUDE 234 BEDS AT THE [facility] Last Admin: 09/15/20 09:27 Dose: 40 mg Documented by: Gabapentin (Gabapentin 300 Mg Cap) 300 mg PO TID@0600,1200,1700 COUNTS INCLUDE 234 BEDS AT THE [facility] Last Admin: 09/15/20 05:49 Dose: 300 mg Documented by: Heparin Sodium (Porcine) (Heparin Sodium 5,000 Units/Ml Vial) 5,000 units SUBCUT Q8H COUNTS INCLUDE 234 BEDS AT THE [facility] Last Admin: 09/15/20 09:33 Dose: 5,000 units Documented by: Hydromorphone HCl (Hydromorphone 0.5 Mg/0.5 Ml Syringe) 0.5 mg IVPUSH Q2H PRN PRN Reason: Pain (severe 7-10) Last Admin: 09/12/20 04:12 Dose: 0.5 mg Documented by: Lorazepam (Lorazepam 1 Mg Tab) 0 mg PO ASDIRECTED LEONARDA; Protocol Last Admin: 09/11/20 20:17 Dose: 1 mg Documented by: Lorazepam (Lorazepam 2 Mg/Ml Sdv) 0 mg IVPUSH Q1H PRN; Protocol PRN Reason: Alcohol withdrawal Last Admin: 09/11/20 17:47 Dose: 2 mg Documented by: Melatonin (Melatonin 3 Mg Tab) 6 mg PO BEDTIME PRN PRN Reason: Sleep Last Admin: 09/14/20 23:19 Dose: 6 mg Documented by: Miscellaneous Information (Remove Nicotine Patch) 1 ea TRDERM DAILY COUNTS INCLUDE 234 BEDS AT THE [facility] Last Admin: 09/15/20 09:25 Dose: 1 ea Documented by: Nicotine (Nicotine 21 Mg/24 Hr Patch) 21 mg TRDERM DAILY COUNTS INCLUDE 234 BEDS AT THE [facility] Last Admin: 09/15/20 09:25 Dose: 21 mg Documented by: Oxycodone HCl (Oxycodone 5 Mg Tab) 5 - 10 mg PO Q4H PRN PRN Reason: Pain Last Admin: 09/12/20 20:42 Dose: 10 mg Documented by: Budesonide/Formoterol 160/4.5 Mcg Inhaler Patient's Own Med 0 each INH BID COUNTS INCLUDE 234 BEDS AT THE [facility] Last Admin: 09/15/20 08:07 Dose: 2 each Documented by: Potassium Chloride (Potassium Chloride 20 Meq Tab.Er) 20 meq PO DAILY COUNTS INCLUDE 234 BEDS AT THE [facility] Last Admin: 09/15/20 09:26 Dose: 20 meq Documented by: Sodium Chloride (Sodium Chloride 0.9% 10 Ml Syringe) 10 ml FLUSH ASDIRECTED PRN PRN Reason: Keep Vein Open Last Admin: 09/08/20 16:42 Dose: 10 ml Documented by: Thiamine HCl (Thiamine 100 Mg Tab) 100 mg PO DAILY COUNTS INCLUDE 234 BEDS AT THE [facility] Last Admin: 09/15/20 09:27 Dose: 100 mg Documented by: Tiotropium Stringer (Tiotropium Stringer 4 Gm Inhalation [place] (2.5mcg/1 Dose) * Patient's Own Med *) 0 gm INH DAILY COUNTS INCLUDE 234 BEDS AT THE [facility] Last Admin: 09/15/20 08:08 Dose: 2 inhalation Documented by: Discontinued Medications Bupropion HCl (Bupropion 100 Mg Tab.Sr) 100 mg PO 0600,1200,1700 COUNTS INCLUDE 234 BEDS AT THE [facility] Diazepam (Diazepam 5 Mg Tab) 5 mg PO TID COUNTS INCLUDE 234 BEDS AT THE [facility] Last Admin: 09/11/20 14:00 Dose: 5 mg Documented by: Diazepam (Diazepam 5 Mg Tab) 5 mg PO Q6H COUNTS INCLUDE 234 BEDS AT THE [facility] Last Admin: 09/11/20 16:44 Dose: 5 mg Documented by: Diazepam (Diazepam 5 Mg Tab) 7.5 mg PO Q6H COUNTS INCLUDE 234 BEDS AT THE [facility] Last Admin: 09/13/20 04:22 Dose: 7.5 mg Documented by: Diazepam (Diazepam 5 Mg Tab) 5 mg PO TID COUNTS INCLUDE 234 BEDS AT THE [facility] Last Admin: 09/14/20 09:42 Dose: 5 mg Documented by: Folic Acid (Folic Acid 1 Mg Tab) 1 mg PO ONETIME ONE Stop: 09/08/20 16:19 Last Admin: 09/08/20 16:42 Dose: 1 mg Documented by: Furosemide (Furosemide 20 Mg/2 Ml Vial) 20 mg IVPUSH ONETIME ONE Stop: 09/09/20 12:04 Last Admin: 09/09/20 12:38 Dose: 20 mg Documented by: Furosemide (Furosemide 20 Mg/2 Ml Vial) 20 mg IVPUSH NOW ONE Stop: 09/10/20 13:50 Last Admin: 09/10/20 14:29 Dose: 20 mg Documented by: Furosemide (Furosemide 20 Mg Tab) 20 mg PO DAILY COUNTS INCLUDE 234 BEDS AT THE [facility] Last Admin: 09/14/20 11:24 Dose: 20 mg Documented by: Furosemide (Furosemide 40 Mg Tab) 40 mg PO DAILY COUNTS INCLUDE 234 BEDS AT THE [facility] Furosemide (Furosemide 20 Mg Tab) 20 mg PO ONETIME ONE Stop: 09/14/20 11:46 Last Admin: 09/14/20 11:57 Dose: 20 mg Documented by: Sodium Chloride (Normal Saline) 1,000 mls @ 500 mls/hr IV ONETIME ONE Stop: 09/08/20 18:17 Last Admin: 09/08/20 16:41 Dose: 500 mls/hr Documented by: Lactated Ringer's (Ringers, Lactated) 1,000 mls @ 100 mls/hr IV ASDIRECTED COUNTS INCLUDE 234 BEDS AT THE [facility] Last Admin: 09/09/20 17:47 Dose: 100 mls/hr Documented by: Magnesium Sulfate 2 gm/ Premix 50 mls @ 25 mls/hr IV ONETIME ONE Stop: 09/11/20 13:58 Last Admin: 09/11/20 12:20 Dose: 25 mls/hr Documented by: Ceftriaxone Sodium 2 gm/ (Sodium Chloride) 100 mls @ 200 mls/hr IV ONETIME ONE Stop: 09/15/20 08:46 Last Admin: 09/15/20 09:24 Dose: 200 mls/hr Documented by: Lorazepam (Lorazepam 2 Mg/Ml Sdv) 4 mg IVPUSH ONETIME ONE Stop: 09/11/20 05:40 Last Admin: 09/11/20 05:50 Dose: 4 mg Documented by: Magnesium Oxide (Magnesium Oxide 400 Mg Tab) 400 mg PO ONETIME ONE Stop: 09/09/20 09:11 Last Admin: 09/09/20 09:40 Dose: 400 mg Documented by: Multivitamins/Minerals/Vitamin C (Multivitamin Tab) 1 tab PO ONETIME ONE Stop: 09/08/20 18:29 Last Admin: 09/08/20 22:05 Dose: 1 tab Documented by: Ondansetron HCl (Ondansetron 4 Mg/2 Ml Sdv) 4 mg IVPUSH ONETIME ONE Stop: 09/08/20 16:20 Last Admin: 09/08/20 16:41 Dose: 4 mg Documented by: Oxycodone HCl (Oxycodone 5 Mg Tab) 5 mg PO Q4H PRN PRN Reason: Pain (moderate 4-6) Last Admin: 09/11/20 16:44 Dose: 5 mg Documented by: Potassium Chloride (Potassium Chloride 20 Meq Tab.Er) 20 meq PO ONETIME ONE Stop: 09/09/20 09:11 Last Admin: 09/09/20 09:40 Dose: 20 meq Documented by: Thiamine HCl (Thiamine 100 Mg Tab) 100 mg PO ONETIME ONE Stop: 09/08/20 16:19 Last Admin: 09/08/20 16:42 Dose: 100 mg Documented by: - Exam Quality Assessment: Reports: DVT Prophylaxis. Denies: Supplemental Oxygen, Urine Catheter General: Reports: Alert, Oriented, Cooperative, No Acute Distress HEENT: Reports: Pupils Equal, Pupils Reactive, Mucous Membr. Moist/Startex Neck: Reports: Supple, Trachea Midline Lungs: Reports: Clear to Auscultation, Normal Respiratory Effort, Decreased Breath Sounds Cardiovascular: Reports: Regular Rate, Regular Rhythm GI/Abdominal Exam: Normal Bowel Sounds, Soft, Non-Tender, No Distention (Male) Exam: Deferred Rectal (Males) Exam: Deferred Back Exam: Reports: Normal Inspection, Full Range of Motion Extremities: Normal Inspection, Normal Range of Motion, Non-Tender, Normal Capillary Refill, Pedal Edema (2+) Skin: Reports: Warm, Dry, Intact Neurological: Reports: No New Focal Deficit Psy/Mental Status: Reports: Alert, Normal Affect, Normal Mood
[2020-09-15 11:26] VITALS: BP 124/68; PULSE 90
[2020-09-15] MEDS: Acetaminophen 325 MG Tab PO PRN (12:16)
== END 2020-09-15 13:45 | disposition other institution (70) | DRG 897 ==
LOC: JD.ED 14:56 → JD.ICU 18:09 → JD.MS 09-13 16:09
PROVIDERS: ADMIT Hospitalist; ATTEND Hospitalist
DX: F10.129 Alcohol abuse with intoxication, unspecified (principal); F10.239 Alcohol dependence with withdrawal, unspecified; Z68.41 Body mass index [BMI] 40.0-44.9, adult; N30.00 Acute cystitis without hematuria; R44.3 Hallucinations, unspecified; F10.229 Alcohol dependence with intoxication, unspecified; R74.01 Elevation of levels of liver transaminase levels; J44.9 Chronic obstructive pulmonary disease, unspecified; F32.9 Major depressive disorder, single episode, unspecified; E78.5 Hyperlipidemia, unspecified; Z20.822 Contact with and (suspected) exposure to COVID-19; F32.89 Other specified depressive episodes; F41.9 Anxiety disorder, unspecified; E66.01 Morbid (severe) obesity due to excess calories; F43.10 Post-traumatic stress disorder, unspecified; M54.9 Dorsalgia, unspecified; G89.29 Other chronic pain; M19.90 Unspecified osteoarthritis, unspecified site; E80.6 Other disorders of bilirubin metabolism; G47.30 Sleep apnea, unspecified; E83.42 Hypomagnesemia; D69.6 Thrombocytopenia, unspecified; R53.1 Weakness; E78.00 Pure hypercholesterolemia, unspecified; F17.210 Nicotine dependence, cigarettes, uncomplicated; I10 Essential (primary) hypertension; Y90.1 Blood alcohol level of 20-39 mg/100 ml; I08.1 Rheumatic disorders of both mitral and tricuspid valves; H54.7 Unspecified visual loss; Z87.898 Personal history of other specified conditions; Z88.8 Allergy status to other drugs, medicaments and biological substances; Z79.899 Other long term (current) drug therapy
CPT/HCPCS: 0240U; 36415; 71045; 71045-26; 76700; 76700-26; 80053; 80074; 80307; 81001; 82247; 82248; 83735; 85025; 85027; 85610; 87086; 93306; 94640; 94667; 94668; 94760; 94761; 96374; 97110-GP; 97116-GP; 97162-GP; 97530-GP; 99222; 99233; 99239; 99284; 99284-25; A9270-GY; J0696; J1170; J1644; J1940; J2060; J2405; J3475; J7030; J7120; J7620-GY